=== PATIENT | male | born 1945 | race African-American/Black ===

== ENCOUNTER 2017-02-15 18:51 | Inpatient (IN) | payer MEDICARE ==
[2017-02-15 22:12] LABS: Hematocrit 29.2 % (35.5-45.6); Hemoglobin 9.2 gm/dl (11.8-15.2); Mean Corpuscular HGB Conc 32 % (32-34); Platelet Count 218 K/mm3 (140-440); Red Blood Count 4.43 M/mm3 (3.65-5.03); Red Cell Distribution Width 18.2 % (13.2-15.2)
[2017-02-15 22:23] LABS: Calcium 9.6 mg/dL (8.4-10.2); Chloride 84.6 mmol/L (98-107); Potassium 3.9 mmol/L (3.6-5.0)
[2017-02-15 22:52] LABS: Mean Corpuscular Hemoglobin 21 pg (28-32); Mean Corpuscular Volume 66 fl (84-94)
--- NOTE | 2017-02-16 07:33 | Emergency Department Report ---
HPI - General Chief Complaint: Urogenital-Male Time Seen by Provider: 02/16/17 07:10 - [facility] HPI: Room 10 The patient is a 71-year-old male presenting with a chief complaint inability to urinate cough and facial erythema. The patient states his symptoms began 3 days ago which was last time he was able to urinate. Patient states he feels there are 2 urinate but cannot produce urine. Patient states she has lower abdominal pain because of this. The patient believes he passed a stone through his penis. The patient states for the past 3 days he has had a cough is nonproductive. Patient states 3 days ago he noticed worsening erythema of his face Location: [See above] Duration: 3 days Quality: Pain Severity: Moderate Modifying factors: [see above] Context: [see above] Mode of transportation: Unknown ED Past Medical Hx - Past Medical History Previous Medical History?: Yes Hx Hypertension: Yes Hx CVA: Yes (2-3 years ago states some right side weakness) Hx Renal Disease: Yes (M.W,F Hemodialysis) Hx Arthritis: Yes (using cane for hip) Additional medical history: Hemodialysis Access Left Arm, GI Bleed - Surgical History Additional Surgical History: Left upper extremity dialysis access - Family History Family history: no significant - Social History Smoking Status: Never Smoker Substance Use Type: None ED Review of Systems ROS: Stated complaint: UNABLE TO URINATE Other details as noted in HPI Constitutional: denies: fever ENT: other (facial erythema) Respiratory: cough Gastrointestinal: abdominal pain Genitourinary: other (urinary retention) Skin: rash Physical Exam - Physical Exam Vital Signs: Vital Signs 02/15/17 02/16/17 02/16/17 21:22 04:27 05:54 Temperature 97.9 F 98.5 F Pulse Rate 82 79 Respiratory 20 18 18 Rate Blood Pressure 163/69 199/98 O2 Sat by Pulse 100 99 96 Oximetry Physical Exam: GENERAL: The patient is well-developed well-nourished male lying on stretcher not appearing to be in acute distress. [] HEENT: Normocephalic. Atraumatic. Extraocular motions are intact. The patient has erythema/cellulitis encompassing the right half of his face from the right side of the nose to the infraorbital maxillary region NECK: Supple. Trachea midline CHEST/LUNGS: Clear to auscultation. There is no respiratory distress noted. HEART/CARDIOVASCULAR: Regular. There is no tachycardia. There is no gallop rub or murmur. ABDOMEN: Abdomen is soft, there is no suprapubic fullness. Patient has normal bowel sounds. There is no abdominal distention. SKIN:The patient has erythema/cellulitis encompassing the right half of his face from the right side of the nose to the infraorbital maxillary region. There is no diaphoresis. NEURO: The patient is awake, alert, and oriented. The patient is cooperative. The patient has normal speech MUSCULOSKELETAL: There is no evidence of acute injury. ED Course Vital Signs 02/15/17 02/16/17 02/16/17 21:22 04:27 05:54 Temperature 97.9 F 98.5 F Pulse Rate 82 79 Respiratory 20 18 18 Rate Blood Pressure 163/69 199/98 O2 Sat by Pulse 100 99 96 Oximetry ED Medical Decision Making - Lab Data Result diagrams: 02/16/17 07:30 02/16/17 07:30 - Radiology Data Radiology results: report reviewed (CT abdomen and pelvis), image reviewed (CT abdomen and pelvis) CT scan of abdomen and pelvis without IV contrast: History: Urinary retention. Findings: Normal lung bases. Minimal bilateral pleural thickening. No pericardial effusion. Liver and upper limit of normal in size. No intrahepatic or extra hepatic dilatation. Distended gallbladder. No calculi the gallbladder. Normal pancreas and spleen. Normal adrenals. The right kidney measures 6.1 cm in vertical axis and left kidney measures 5.9 cm. No mass. No hydronephrosis. Thick walled urinary bladder.. Normal size prostate. Moderate amount of ascitic fluid. Gaseous colon with moderate volume stool in colon. No colonic distention. No small bowel distention. Impression: Bilateral small kidneys with thick walled urinary bladder. Normal prostate. Moderate amount of ascitic fluid. Additional findings as detailed above.. Transcribed By: PTP Dictated By: KATHRYN PAREDES MD Electronically Authenticated By: KATHRYN PAREDES MD Signed Date/Time: 02/16/17 1016 DD/ 1013 TD/TT: 02/16/17 1016 - Differential Diagnosis urinary retention, renal failure, facial cellulitis, pneumonia, bronchitis Critical care attestation.: If time is entered above; I have spent that time in minutes in the direct care of this critically ill patient, excluding procedure time. ED Disposition Clinical Impression: Facial cellulitis, Oliguria, End stage renal disease Disposition: OP ADMIT IP TO THIS HOSP Is pt being admited?: Yes Does the pt Need Aspirin: No Condition: Fair Referrals: PRIMARY CARE, [Primary Care Provider] - 3-5 Days Time of Disposition: 11:15 (hospitalist paged)
[2017-02-16 07:44] LABS: Hemoglobin 8.4 gm/dl (11.8-15.2); Mean Corpuscular HGB Conc 32 % (32-34); Platelet Count 184 K/mm3 (140-440); Red Blood Count 4.01 M/mm3 (3.65-5.03); Red Cell Distribution Width 18.2 % (13.2-15.2); White Blood Count 6.6 K/mm3 (4.5-11.0)
[2017-02-16 07:46] LABS: Mean Corpuscular Hemoglobin 21 pg (28-32); Mean Corpuscular Volume 65 fl (84-94)
[2017-02-16 08:04] LABS: Chloride 86.7 mmol/L (98-107); Potassium 4.1 mmol/L (3.6-5.0)
[2017-02-16 08:24] LABS: Calcium 9.2 mg/dL (8.4-10.2)
--- NOTE | 2017-02-16 08:25 | XRay Report ---
FINAL REPORT EXAM: XR CHEST ROUTINE 2V HISTORY: cough TECHNIQUE: PA and lateral chest radiographs PRIORS: None. FINDINGS: No mediastinal shift. Mild cardiomegaly. Mild hyperaeration of the lungs. No pneumothorax, effusion, or focal pulmonary opacity. No acute skeletal finding. IMPRESSION: No acute pulmonary finding. Mild cardiomegaly and mild sequela of COPD are suggested.
[2017-02-16 08:31] LABS: Anisocytosis 2+; Blastocytes % (Manual) 0 %; Microcytosis 1+; Poikilocytosis 2+
[2017-02-16 08:32] LABS: Diff Status Complete; Elliptocytes 1+; Hypochromasia 2+; Schistocytes Few; Target Cells Few; Tear Drop Cells Few
--- NOTE | 2017-02-16 10:22 | Cat Scan Report ---
CT scan of abdomen and pelvis without IV contrast: History: Urinary retention. Findings: Normal lung bases. Minimal bilateral pleural thickening. No pericardial effusion. Liver and upper limit of normal in size. No intrahepatic or extra hepatic dilatation. Distended gallbladder. No calculi the gallbladder. Normal pancreas and spleen. Normal adrenals. The right kidney measures 6.1 cm in vertical axis and left kidney measures 5.9 cm. No mass. No hydronephrosis. Thick walled urinary bladder.. Normal size prostate. Moderate amount of ascitic fluid. Gaseous colon with moderate volume stool in colon. No colonic distention. No small bowel distention. Impression: Bilateral small kidneys with thick walled urinary bladder. Normal prostate. Moderate amount of ascitic fluid. Additional findings as detailed above..
[2017-02-16] MEDS ORDERED: CLEOCIN 900 MG/50 mL 900 MG/50 ML BAG IV ONE (11:08)
[2017-02-16] MEDS ORDERED: ZOFRAN IV ONE (11:29)
[2017-02-16] MEDS ORDERED: MORPHINE IV ONE (11:29)
[2017-02-16] MEDS ORDERED: ZOFRAN IV PRN (14:23)
[2017-02-16] MEDS ORDERED: MORPHINE IV PRN (14:23)
[2017-02-16] MEDS ORDERED: TYLENOL PO PRN (14:23)
[2017-02-16] MEDS ORDERED: DULCOLAX PR PRN (14:23)
[2017-02-16] MEDS ORDERED: PERCOCET 5/325 PO PRN (14:23)
--- NOTE | 2017-02-16 14:33 | History and Physical Report ---
History of Present Illness Chief complaint: i can't pee, and my face is red and swollen History of present illness: 71 year old man with past medical history of end-stage renal disease on hemodialysis. Who presents complaining of poor urine outputs and facial redness and swelling. Patience was really preoccupied with the fact that his urine output has become less. He's also complaining that they tried to put a catheter in the emergency room and were unable to place one. He's worried that if he doesn't make urine he will keep swelling up. He admits some mild abdominal swelling. He's also complaining of redness swelling and pain of his face which is around his nose. He denies facial trauma scratching his face while popping a pimple. He's also had a dry cough for about 3 days. Patient denies dysuria passing any stone in his urine. Even though he was concerned that he might have a stone blocking his urine flow. Past History Past Medical History: other (htn, esrd) Past Surgical History: Other (av graft L forearm) Social history: no significant social history Family history: hypertension Medications and Allergies Allergies Allergy/AdvReac Type Severity Reaction Status Date / Time No Known Allergies Allergy Unverified 09/12/15 11:54 Home Medications Medication Instructions Recorded Confirmed Last Taken Type Furosemide [Lasix] 80 mg PO ONCE 02/16/17 02/16/17 Unknown History Lanthanum Carbonate [Fosrenol] 1,000 mg PO ONCE 02/16/17 02/16/17 Unknown History NIFEdipine [Nifedipine ER] 60 mg PO ONCE 02/16/17 02/16/17 Unknown History Active Meds: Active Medications Acetaminophen (Tylenol) 650 mg PO Q4H PRN PRN Reason: Pain MILD(1-3)/Fever >100.5/EVANS Bisacodyl (Dulcolax) 10 mg MI QDAY PRN PRN Reason: Constipation unrelieved by MOM Heparin Sodium (Porcine) (Heparin) 5,000 unit SUB-Q Q8HR KHAI Hydralazine HCl (Apresoline) 10 mg IV Q4HR PRN PRN Reason: BP >160/100 Clindamycin HCl (Cleocin 300 Mg/50 Ml) 300 mg in 50 mls @ 100 mls/hr IV Q8H KHAI Morphine Sulfate (Morphine) 4 mg IV Q4H PRN PRN Reason: Pain , Severe (7-10) Ondansetron HCl (Zofran) 4 mg IV Q8H PRN PRN Reason: N/V unrelieved by Reglan Oxycodone/Acetaminophen (Percocet 5/325) 1 tab PO Q6H PRN PRN Reason: Pain, Moderate (4-6) Review of Systems All systems: negative Constitutional: weakness Respiratory: cough Genitourinary Male: other (poor urine output) Exam - Constitutional Vitals: Temp Pulse Resp BP Pulse Ox 97.8 F 83 18 209/104 97 02/16/17 11:57 02/16/17 11:57 02/16/17 11:57 02/16/17 11:57 02/16/17 11:57 General appearance: Present: no acute distress, well-nourished - EENT Eyes: Present: PERRL ENT: hearing intact, clear oral mucosa - Neck Neck: Present: supple, normal ROM - Respiratory Respiratory effort: normal Respiratory: bilateral: CTA - Cardiovascular Heart Sounds: Present: S1 & S2. Absent: rub, click - Extremities Extremities: pulses symmetrical, No edema Peripheral Pulses: within normal limits - Abdominal General gastrointestinal: Present: soft, non-tender, non-distended, normal bowel sounds Male genitourinary: Present: normal - Integumentary Integumentary: Present: clear (erythema, edema and tenderness of nose), warm - Musculoskeletal Musculoskeletal: gait normal, strength equal bilaterally - Psychiatric Psychiatric: appropriate mood/affect, intact judgment & insight - Neurologic Neurologic: CNII-XII intact, moves all extremities Results - Labs CBC & Chem 7: 02/16/17 07:30 02/17/17 06:00 Labs: Laboratory Last Values WBC 6.6 K/mm3 (4.5-11.0) 02/16/17 07:30 RBC 4.01 M/mm3 (3.65-5.03) 02/16/17 07:30 Hgb 8.4 gm/dl (11.8-15.2) L 02/16/17 07:30 Hct 26.0 % (35.5-45.6) L 02/16/17 07:30 MCV 65 fl (84-94) L 02/16/17 07:30 MCH 21 pg (28-32) L 02/16/17 07:30 MCHC 32 % (32-34) 02/16/17 07:30 RDW 18.2 % (13.2-15.2) H 02/16/17 07:30 Plt Count 184 K/mm3 (140-440) 02/16/17 07:30 Add Manual Diff Complete 02/16/17 07:30 Total Counted 100 02/16/17 07:30 Seg Neuts % (Manual) 77.0 % (40.0-70.0) H 02/16/17 07:30 Band Neutrophils % 1.0 % 02/16/17 07:30 Lymphocytes % (Manual) 14.0 % (13.4-35.0) 02/16/17 07:30 Reactive Lymphs % (Man) 0 % 02/16/17 07:30 Monocytes % (Manual) 5.0 % (0.0-7.3) 02/16/17 07:30 Eosinophils % (Manual) 2.0 % (0.0-4.3) 02/16/17 07:30 Basophils % (Manual) 1.0 % (0.0-1.8) 02/16/17 07:30 Metamyelocytes % 0 % 02/16/17 07:30 Myelocytes % 0 % 02/16/17 07:30 Promyelocytes % 0 % 02/16/17 07:30 Blast Cells % 0 % 02/16/17 07:30 Nucleated RBC % Not Reportable 02/16/17 07:30 Seg Neutrophils # Man 5.1 K/mm3 (1.8-7.7) 02/16/17 07:30 Band Neutrophils # 0.1 K/mm3 02/16/17 07:30 Lymphocytes # (Manual) 0.9 K/mm3 (1.2-5.4) L 02/16/17 07:30 Abs React Lymphs (Man) 0.0 K/mm3 02/16/17 07:30 Monocytes # (Manual) 0.3 K/mm3 (0.0-0.8) 02/16/17 07:30 Eosinophils # (Manual) 0.1 K/mm3 (0.0-0.4) 02/16/17 07:30 Basophils # (Manual) 0.1 K/mm3 (0.0-0.1) 02/16/17 07:30 Metamyelocytes # 0.0 K/mm3 02/16/17 07:30 Myelocytes # 0.0 K/mm3 02/16/17 07:30 Promyelocytes # 0.0 K/mm3 02/16/17 07:30 Blast Cells # 0.0 K/mm3 02/16/17 07:30 WBC Morphology Not Reportable 02/16/17 07:30 Hypersegmented Neuts Not Reportable 02/16/17 07:30 Hyposegmented Neuts Not Reportable 02/16/17 07:30 Hypogranular Neuts Not Reportable 02/16/17 07:30 Smudge Cells Not Reportable 02/16/17 07:30 Toxic Granulation Not Reportable 02/16/17 07:30 Toxic Vacuolation Not Reportable 02/16/17 07:30 Dohle Bodies Not Reportable 02/16/17 07:30 Pelger-Huet Anomaly Not Reportable 02/16/17 07:30 Amarjit Rods Not Reportable 02/16/17 07:30 Platelet Estimate Appears normal 02/16/17 07:30 Clumped Platelets Not Reportable 02/16/17 07:30 Plt Clumps, EDTA Not Reportable 02/16/17 07:30 Large Platelets Not Reportable 02/16/17 07:30 Giant Platelets Not Reportable 02/16/17 07:30 Platelet Satelliting Not Reportable 02/16/17 07:30 Plt Morphology Comment Not Reportable 02/16/17 07:30 RBC Morphology Not Reportable 02/16/17 07:30 Dimorphic RBCs Not Reportable 02/16/17 07:30 Polychromasia Not Reportable 02/16/17 07:30 Hypochromasia 2+ 02/16/17 07:30 Poikilocytosis 2+ 02/16/17 07:30 Anisocytosis 2+ 02/16/17 07:30 Microcytosis 1+ 02/16/17 07:30 Macrocytosis Not Reportable 02/16/17 07:30 Spherocytes Not Reportable 02/16/17 07:30 Pappenheimer Bodies Not Reportable 02/16/17 07:30 Sickle Cells Not Reportable 02/16/17 07:30 Target Cells Few 02/16/17 07:30 Tear Drop Cells Few 02/16/17 07:30 Ovalocytes Not Reportable 02/16/17 07:30 Helmet Cells Not Reportable 02/16/17 07:30 Varela-Maben Bodies Not Reportable 02/16/17 07:30 [place] Rings Not Reportable 02/16/17 07:30 [place] Cells Not Reportable 02/16/17 07:30 Bite Cells Not Reportable 02/16/17 07:30 Crenated Cell Not Reportable 02/16/17 07:30 Elliptocytes 1+ 02/16/17 07:30 Acanthocytes (Spur) Not Reportable 02/16/17 07:30 Rouleaux Not Reportable 02/16/17 07:30 Hemoglobin C Crystals Not Reportable 02/16/17 07:30 Schistocytes Few 02/16/17 07:30 Malaria parasites Not Reportable 02/16/17 07:30 Genaro Bodies Not Reportable 02/16/17 07:30 Hem Pathologist Commnt No 02/16/17 07:30 Sodium 135 mmol/L (137-145) L 02/16/17 07:30 Potassium 4.1 mmol/L (3.6-5.0) 02/16/17 07:30 Chloride 86.7 mmol/L (98-107) L 02/16/17 07:30 Carbon Dioxide 25 mmol/L (22-30) 02/16/17 07:30 Anion Gap 27 mmol/L 02/16/17 07:30 BUN 44 mg/dL (9-20) H 02/16/17 07:30 Creatinine 7.9 mg/dL (0.8-1.5) H 02/16/17 07:30 Estimated GFR 7 ml/min 02/16/17 07:30 BUN/Creatinine Ratio 6 % 02/16/17 07:30 Glucose 95 mg/dL (75-100) 02/16/17 07:30 Calcium 9.2 mg/dL (8.4-10.2) 02/16/17 07:30 - Imaging and Cardiology CT scan - abdomen: image reviewed (bilateral small kidnesy, no urinary obstruction) CT Scan - head: image reviewed (preseptal cellulitis, no abcess) Assessment and Plan Assessment and plan: 71M with facial cellulitis/sepsis, esrd Facial Cellulitis/sepsis on abx, ID consult ESRD HD per renal HTN urgency add IV hydralazine and optimize meds Cough likely an URTI, CXR neg for PNA supportive care as needed
[2017-02-16] MEDS ORDERED: NACL ONE (14:43)
[2017-02-16] MEDS ORDERED: CLEOCIN 300 MG/50 mL 300 MG/50 ML BAG IV SCH (15:00)
--- NOTE | 2017-02-16 15:31 | Cat Scan Report ---
FINAL REPORT PROCEDURE: CT FACIAL BONES W CON TECHNIQUE: Consent was obtained. IV contrast was administered and axial sections and coronal and sagittal reformatted images were viewed through the facial bones. HISTORY: facial cellulitis/suspect abscess COMPARISON: None FINDINGS: There is right periorbital and right facial soft tissue swelling. There is no loculated fluid collection to suggest soft tissue abscess. Multiple teeth are missing and the maxilla is largely edentulous. There is a lucency with bony expansion of the right paramedian maxilla beneath tooth at this level. This measures 1.4 x 0.9 centimeters. Subtle bony dehiscence anterior inferiorly is not excluded for example seen on series 5, image 41. Lymph nodes are present within the bilateral neck as well as submental without pathologic enlargement or necrosis. Chronic right ethmoidal and right maxillary sinusitis is seen. Calcific atherosclerosis at the carotid bifurcations is noted. Mild degenerative changes of the spine as well as Schmorl's node of the superior endplate of the C6 vertebral body is present. IMPRESSION: Largely edentulous patient with 1.4 x 0.9 centimeter lucency of the right paramedian maxilla beneath a tooth possibly a dentigerous cyst. Bony dehiscence is seen anterior inferiorly with right periorbital and right facial cellulitis. No evident soft tissue abscess. Chronic right ethmoidal and right maxillary sinusitis.
[2017-02-16] MEDS ORDERED: NACL 0.9% 100 ML IV PRN (18:58)
[2017-02-16] MEDS: CLEOCIN 300 MG/50 mL 300 MG/50 ML BAG IV SCH (21:08)
[2017-02-16] MEDS: HEPARIN SUB-Q SCH (22:03)
[2017-02-17] MEDS ORDERED: LANTHANUM CARBONATE 1000 MG PO SCH (02:15)
[2017-02-17] MEDS: APRESOLINE IV PRN (03:05)
[2017-02-17] MEDS: CLEOCIN 300 MG/50 mL 300 MG/50 ML BAG IV SCH ×3 (03:56→22:53)
[2017-02-17 06:26] LABS: Calcium 8.9 mg/dL (8.4-10.2); Chloride 85.7 mmol/L (98-107); Potassium 4.5 mmol/L (3.6-5.0)
[2017-02-17] MEDS: HEPARIN SUB-Q SCH ×3 (06:32→22:54)
--- NOTE | 2017-02-17 07:45 | Progress Note ---
<JIMBO WASHINGTON - Last Filed: 02/17/17 13:27> Assessment and Plan Assessment and plan: Patient is a 71 year old man with past medical history of end-stage renal disease on hemodialysis. Who presents complaining of poor urine outputs and facial redness and swelling. Patience was really preoccupied with the fact that his urine output has become less. Facial Cellulitis/sepsis Face Follow Blood cultures Continue on IV Clindamycin Managed by ID Supportive care Hypertension Optimize home antihypertensive meds IV hydralazine for SBP>160 Closely monitor blood pressure End-stage renal disease on dialysis Patient will have urgent dialysis today Nephrology consulted Diabetes mellitus Accu-Chek before meals and at bedtime Sliding scale insulin/NovoLog ADA carbohydrate consistent diet Chronic anemia H&H stable for patient at this point; no blood transfusions needed Closely monitor H&H Cough likely an URTI, CXR neg for PNA supportive care as needed Hyponatremia Most likely due to ESRD, patient has HD today that will correct it Closely monitor electrolytes DVT prophylaxis Heparin History Interval history: Patient denies having any pain at present time. Labs and nursing notes reviewed. Hospitalist Physical - Constitutional Vitals: Temp Pulse Resp BP Pulse Ox 97.8 F 68 18 160/73 96 02/16/17 19:26 02/17/17 07:33 02/17/17 07:33 02/17/17 07:33 02/17/17 07:33 General appearance: Present: no acute distress, well-nourished - EENT Eyes: Present: PERRL ENT: hearing intact - Neck Neck: Present: supple - Respiratory Respiratory effort: normal Respiratory: bilateral: CTA - Cardiovascular Rhythm: regular Heart Sounds: Present: S1 & S2 - Abdominal General gastrointestinal: soft, non-tender - Integumentary Integumentary: Present: clear, warm, dry - Psychiatric Psychiatric: appropriate mood/affect - Neurologic Neurologic: moves all extremities - Allied Health Allied health notes reviewed: nursing Results - Labs CBC & Chem 7: 02/16/17 07:30 02/17/17 06:00 Labs: Laboratory Last Values WBC 6.6 K/mm3 (4.5-11.0) 02/16/17 07:30 RBC 4.01 M/mm3 (3.65-5.03) 02/16/17 07:30 Hgb 8.4 gm/dl (11.8-15.2) L 11/26/17 07:30 Hct 26.0 % (35.5-45.6) L 02/16/17 07:30 MCV 65 fl (84-94) L 02/16/17 07:30 MCH 21 pg (28-32) L 02/16/17 07:30 MCHC 32 % (32-34) 02/16/17 07:30 RDW 18.2 % (13.2-15.2) H 02/16/17 07:30 Plt Count 184 K/mm3 (140-440) 02/16/17 07:30 Add Manual Diff Complete 02/16/17 07:30 Total Counted 100 02/16/17 07:30 Seg Neuts % (Manual) 77.0 % (40.0-70.0) H 02/16/17 07:30 Band Neutrophils % 1.0 % 02/16/17 07:30 Lymphocytes % (Manual) 14.0 % (13.4-35.0) 02/16/17 07:30 Reactive Lymphs % (Man) 0 % 02/16/17 07:30 Monocytes % (Manual) 5.0 % (0.0-7.3) 02/16/17 07:30 Eosinophils % (Manual) 2.0 % (0.0-4.3) 02/16/17 07:30 Basophils % (Manual) 1.0 % (0.0-1.8) 02/16/17 07:30 Metamyelocytes % 0 % 02/16/17 07:30 Myelocytes % 0 % 02/16/17 07:30 Promyelocytes % 0 % 02/16/17 07:30 Blast Cells % 0 % 02/16/17 07:30 Nucleated RBC % Not Reportable 02/16/17 07:30 Seg Neutrophils # Man 5.1 K/mm3 (1.8-7.7) 02/16/17 07:30 Band Neutrophils # 0.1 K/mm3 02/16/17 07:30 Lymphocytes # (Manual) 0.9 K/mm3 (1.2-5.4) L 02/16/17 07:30 Abs React Lymphs (Man) 0.0 K/mm3 02/16/17 07:30 Monocytes # (Manual) 0.3 K/mm3 (0.0-0.8) 02/16/17 07:30 Eosinophils # (Manual) 0.1 K/mm3 (0.0-0.4) 02/16/17 07:30 Basophils # (Manual) 0.1 K/mm3 (0.0-0.1) 02/16/17 07:30 Metamyelocytes # 0.0 K/mm3 02/16/17 07:30 Myelocytes # 0.0 K/mm3 02/16/17 07:30 Promyelocytes # 0.0 K/mm3 02/16/17 07:30 Blast Cells # 0.0 K/mm3 02/16/17 07:30 WBC Morphology Not Reportable 02/16/17 07:30 Hypersegmented Neuts Not Reportable 02/16/17 07:30 Hyposegmented Neuts Not Reportable 02/16/17 07:30 Hypogranular Neuts Not Reportable 02/16/17 07:30 Smudge Cells Not Reportable 02/16/17 07:30 Toxic Granulation Not Reportable 02/16/17 07:30 Toxic Vacuolation Not Reportable 02/16/17 07:30 Dohle Bodies Not Reportable 02/16/17 07:30 Pelger-Huet Anomaly Not Reportable 02/16/17 07:30 Amarjit Rods Not Reportable 02/16/17 07:30 Platelet Estimate Appears normal 02/16/17 07:30 Clumped Platelets Not Reportable 02/16/17 07:30 Plt Clumps, EDTA Not Reportable 02/16/17 07:30 Large Platelets Not Reportable 02/16/17 07:30 Giant Platelets Not Reportable 02/16/17 07:30 Platelet Satelliting Not Reportable 02/16/17 07:30 Plt Morphology Comment Not Reportable 02/16/17 07:30 RBC Morphology Not Reportable 02/16/17 07:30 Dimorphic RBCs Not Reportable 02/16/17 07:30 Polychromasia Not Reportable 02/16/17 07:30 Hypochromasia 2+ 02/16/17 07:30 Poikilocytosis 2+ 02/16/17 07:30 Anisocytosis 2+ 02/16/17 07:30 Microcytosis 1+ 02/16/17 07:30 Macrocytosis Not Reportable 02/16/17 07:30 Spherocytes Not Reportable 02/16/17 07:30 Pappenheimer Bodies Not Reportable 02/16/17 07:30 Sickle Cells Not Reportable 02/16/17 07:30 Target Cells Few 02/16/17 07:30 Tear Drop Cells Few 02/16/17 07:30 Ovalocytes Not Reportable 02/16/17 07:30 Helmet Cells Not Reportable 02/16/17 07:30 [place] Bodies Not Reportable 02/16/17 07:30 [place] Rings Not Reportable 02/16/17 07:30 [place] Cells Not Reportable 02/16/17 07:30 Bite Cells Not Reportable 02/16/17 07:30 Crenated Cell Not Reportable 02/16/17 07:30 Elliptocytes 1+ 02/16/17 07:30 Acanthocytes (Spur) Not Reportable 02/16/17 07:30 Rouleaux Not Reportable 02/16/17 07:30 Hemoglobin C Crystals Not Reportable 02/16/17 07:30 Schistocytes Few 02/16/17 07:30 Malaria parasites Not Reportable 02/16/17 07:30 [place] Bodies Not Reportable 02/16/17 07:30 Hem Pathologist Commnt No 02/16/17 07:30 Sodium 133 mmol/L (137-145) L 02/17/17 06:00 Potassium 4.5 mmol/L (3.6-5.0) 02/17/17 06:00 Chloride 85.7 mmol/L (98-107) L 02/17/17 06:00 Carbon Dioxide 26 mmol/L (22-30) 02/17/17 06:00 Anion Gap 26 mmol/L 02/17/17 06:00 BUN 56 mg/dL (9-20) H 02/17/17 06:00 Creatinine 9.8 mg/dL (0.8-1.5) H 02/17/17 06:00 Estimated GFR 5 ml/min 02/17/17 06:00 BUN/Creatinine Ratio 6 % 02/17/17 06:00 Glucose 99 mg/dL (75-100) 02/17/17 06:00 Calcium 8.9 mg/dL (8.4-10.2) 02/17/17 06:00 <CLARK BAIRD O - Last Filed: 02/19/17 01:02> Assessment and Plan Assessment and plan: I saw and evaluated the patient. I agree with the findings and the plan of care as documented in the Nurse Practitioner's~note, with the following corrections and additions. Patient presents with cellulitis of face. Continue Antibiotics. Hospitalist Physical - Constitutional Vitals: Temp Pulse Resp BP Pulse Ox 98.2 F 77 18 181/78 97 02/18/17 20:05 02/18/17 20:05 02/18/17 20:05 02/18/17 20:05 02/18/17 20:05 Results - Labs CBC & Chem 7: 02/18/17 03:48 02/18/17 03:48 Labs: Laboratory Last Values WBC 7.0 K/mm3 (4.5-11.0) 02/18/17 03:48 RBC 3.81 M/mm3 (3.65-5.03) 02/18/17 03:48 Hgb 8.2 gm/dl (11.8-15.2) L 02/18/17 03:48 Hct 24.9 % (35.5-45.6) L 02/18/17 03:48 MCV 65 fl (84-94) L 02/18/17 03:48 MCH 22 pg (28-32) L 02/18/17 03:48 MCHC 33 % (32-34) 02/18/17 03:48 RDW 18.2 % (13.2-15.2) H 02/18/17 03:48 Plt Count 181 K/mm3 (140-440) 02/18/17 03:48 Lymph % (Auto) 23.1 % (13.4-35.0) 02/18/17 03:48 [place] % (Auto) 13.2 % (0.0-7.3) H 02/18/17 03:48 Eos % (Auto) 4.7 % (0.0-4.3) H 02/18/17 03:48 Baso % (Auto) 1.5 % (0.0-1.8) 02/18/17 03:48 Lymph # 1.6 K/mm3 (1.2-5.4) 02/18/17 03:48 [place] # 0.9 K/mm3 (0.0-0.8) H 02/18/17 03:48 Eos # 0.3 K/mm3 (0.0-0.4) 02/18/17 03:48 Baso # 0.1 K/mm3 (0.0-0.1) 02/18/17 03:48 Add Manual Diff Complete 02/16/17 07:30 Total Counted 100 02/16/17 07:30 Seg Neutrophils % 57.5 % (40.0-70.0) 02/18/17 03:48 Seg Neuts % (Manual) 77.0 % (40.0-70.0) H 02/16/17 07:30 Band Neutrophils % 1.0 % 02/16/17 07:30 Lymphocytes % (Manual) 14.0 % (13.4-35.0) 02/16/17 07:30 Reactive Lymphs % (Man) 0 % 02/16/17 07:30 Monocytes % (Manual) 5.0 % (0.0-7.3) 02/16/17 07:30 Eosinophils % (Manual) 2.0 % (0.0-4.3) 02/16/17 07:30 Basophils % (Manual) 1.0 % (0.0-1.8) 02/16/17 07:30 Metamyelocytes % 0 % 02/16/17 07:30 Myelocytes % 0 % 02/16/17 07:30 Promyelocytes % 0 % 02/16/17 07:30 Blast Cells % 0 % 02/16/17 07:30 Nucleated RBC % Not Reportable 02/16/17 07:30 Seg Neutrophils # 4.0 K/mm3 (1.8-7.7) 02/18/17 03:48 Seg Neutrophils # Man 5.1 K/mm3 (1.8-7.7) 02/16/17 07:30 Band Neutrophils # 0.1 K/mm3 02/16/17 07:30 Lymphocytes # (Manual) 0.9 K/mm3 (1.2-5.4) L 02/16/17 07:30 Abs React Lymphs (Man) 0.0 K/mm3 02/16/17 07:30 Monocytes # (Manual) 0.3 K/mm3 (0.0-0.8) 02/16/17 07:30 Eosinophils # (Manual) 0.1 K/mm3 (0.0-0.4) 02/16/17 07:30 Basophils # (Manual) 0.1 K/mm3 (0.0-0.1) 02/16/17 07:30 Metamyelocytes # 0.0 K/mm3 02/16/17 07:30 Myelocytes # 0.0 K/mm3 02/16/17 07:30 Promyelocytes # 0.0 K/mm3 02/16/17 07:30 Blast Cells # 0.0 K/mm3 02/16/17 07:30 WBC Morphology Not Reportable 02/16/17 07:30 Hypersegmented Neuts Not Reportable 02/16/17 07:30 Hyposegmented Neuts Not Reportable 02/16/17 07:30 Hypogranular Neuts Not Reportable 02/16/17 07:30 Smudge Cells Not Reportable 02/16/17 07:30 Toxic Granulation Not Reportable 02/16/17 07:30 Toxic Vacuolation Not Reportable 02/16/17 07:30 Dohle Bodies Not Reportable 02/16/17 07:30 Pelger-[place]uet Anomaly Not Reportable 02/16/17 07:30 Amarjit Rods Not Reportable 02/16/17 07:30 Platelet Estimate Appears normal 02/16/17 07:30 Clumped Platelets Not Reportable 02/16/17 07:30 Plt Clumps, EDTA Not Reportable 02/16/17 07:30 Large Platelets Not Reportable 02/16/17 07:30 Giant Platelets Not Reportable 02/16/17 07:30 Platelet Satelliting Not Reportable 02/16/17 07:30 Plt Morphology Comment Not Reportable 02/16/17 07:30 RBC Morphology Not Reportable 02/16/17 07:30 Dimorphic RBCs Not Reportable 02/16/17 07:30 Polychromasia Not Reportable 02/16/17 07:30 Hypochromasia 2+ 02/16/17 07:30 Poikilocytosis 2+ 02/16/17 07:30 Anisocytosis 2+ 02/16/17 07:30 Microcytosis 1+ 02/16/17 07:30 Macrocytosis Not Reportable 02/16/17 07:30 Spherocytes Not Reportable 02/16/17 07:30 Pappenheimer Bodies Not Reportable 02/16/17 07:30 Sickle Cells Not Reportable 02/16/17 07:30 Target Cells Few 02/16/17 07:30 Tear Drop Cells Few 02/16/17 07:30 Ovalocytes Not Reportable 02/16/17 07:30 Helmet Cells Not Reportable 02/16/17 07:30 [place] Bodies Not Reportable 02/16/17 07:30 [place] Rings Not Reportable 02/16/17 07:30 [place] Cells Not Reportable 02/16/17 07:30 Bite Cells Not Reportable 02/16/17 07:30 Crenated Cell Not Reportable 02/16/17 07:30 Elliptocytes 1+ 02/16/17 07:30 Acanthocytes (Spur) Not Reportable 02/16/17 07:30 Rouleaux Not Reportable 02/16/17 07:30 Hemoglobin C Crystals Not Reportable 02/16/17 07:30 Schistocytes Few 02/16/17 07:30 Malaria parasites Not Reportable 02/16/17 07:30 [place] Bodies Not Reportable 02/16/17 07:30 Hem Pathologist Commnt No 02/16/17 07:30 Sodium 135 mmol/L (137-145) L 02/18/17 03:48 Potassium 4.0 mmol/L (3.6-5.0) 02/18/17 03:48 Chloride 91.7 mmol/L (98-107) L 02/18/17 03:48 Carbon Dioxide 26 mmol/L (22-30) 02/18/17 03:48 Anion Gap 21 mmol/L 02/18/17 03:48 BUN 30 mg/dL (9-20) H 02/18/17 03:48 Creatinine 6.3 mg/dL (0.8-1.5) H 02/18/17 03:48 Estimated GFR 9 ml/min 02/18/17 03:48 BUN/Creatinine Ratio 5 % 02/18/17 03:48 Glucose 88 mg/dL (75-100) 02/18/17 03:48 Calcium 8.7 mg/dL (8.4-10.2) 02/18/17 03:48 C-Reactive Protein 2.30 mg/dL (0.00-1.30) H 02/17/17 06:00
[2017-02-17] MEDS ORDERED: NACL 0.9 (PRIMING MACHINE ONLY DIALYSIS) MC ONE (13:13)
--- NOTE | 2017-02-17 13:36 | Consultation ---
History of Present Illness - Reason for Consult Consult date: 02/17/17 facial cellulitis Requesting physician: MARITZA CASAS - History of Present Illness 71 years old male with history of end stage renal disease on hemodialysis, admitted on 02/16/2017 due to 7 day history of right facial rash and erythema. Denies any recent injuries to the face or lesions. Erythema is associated with facial pain which is throbbing. She also is complaining of decreased urine output. Complains of abdominal distention however denies pain. Reports subjective fever for a week. Reports dry cough for the last 3 days. In the Emergency room, initial temperature was 97.9, heart rate 82, blood pressure 163/69. White count 9.2. Hg 9.2. CXR showed Mild cardiomegaly with mild COPD changes. CT of the face showed chronic right ethmoid and maxillary sinusitis. CT of the abdomen showed bilaterally small kidneys with thick walled urinary bladder. Microbiology: Blood cultures: 02/16 ngtd Current Antimicrobials: Clindamycin 02/16 Previous Antimicrobials: Past History Past Medical History: other (htn, esrd) Past Surgical History: Other (av graft L forearm) Social history: no significant social history Family history: hypertension Medications and Allergies Allergies Allergy/AdvReac Type Severity Reaction Status Date / Time No Known Allergies Allergy Unverified 09/12/15 11:54 Home Medications Medication Instructions Recorded Confirmed Last Taken Type Furosemide [Lasix] 80 mg PO ONCE 02/16/17 02/16/17 Unknown History Lanthanum Carbonate [Fosrenol] 1,000 mg PO ONCE 02/16/17 02/16/17 Unknown History NIFEdipine [Nifedipine ER] 60 mg PO ONCE 02/16/17 02/16/17 Unknown History Active Meds: Active Medications Acetaminophen (Tylenol) 650 mg PO Q4H PRN PRN Reason: Pain MILD(1-3)/Fever >100.5/EVANS Bisacodyl (Dulcolax) [address] QDAY PRN PRN Reason: Constipation unrelieved by MOM Heparin Sodium (Porcine) (Heparin) 5,000 unit SUB-Q Q8HR [facility] Last Admin: 02/17/17 06:32 Dose: 5,000 unit Hydralazine HCl (Apresoline) 10 mg IV Q4HR PRN PRN Reason: BP >160/100 Last Admin: 02/17/17 03:05 Dose: 10 mg Clindamycin HCl (Cleocin 300 Mg/50 Ml) 300 mg in 50 mls @ 100 mls/hr IV Q8H KHAI Last Admin: 02/17/17 03:56 Dose: 100 mls/hr Sodium Chloride (Nacl 0.9%) 100 mls @ 999 mls/hr IV AL PRN PRN Reason: Hypotension Lanthanum Carbonate (Fosrenol) 1,000 mg PO QDAY KHAI Morphine Sulfate (Morphine) 4 mg IV Q4H PRN PRN Reason: Pain , Severe (7-10) Nifedipine (Procardia Xl) 60 mg PO QDAY KHAI Ondansetron HCl (Zofran) 4 mg IV Q8H PRN PRN Reason: N/V unrelieved by Reglan Oxycodone/Acetaminophen (Percocet 5/325) 1 tab PO Q6H PRN PRN Reason: Pain, Moderate (4-6) Review of Systems All systems: negative (as per HPI rest neg) Physical Examination - Physical Exam Narrative exam: General appearance: Alert in NAD, conversant Eyes: anicteric sclerae, moist conjunctivae; no lid-lag; PERRLA HENT: Atraumatic; oropharynx clear with moist mucous membranes and no mucosal ulcerations/no oral thrush; normal hard and soft palate. Normal external ears. Neck: Trachea midline; supple, no thyromegaly or lymphadenopathy Lungs: CTA, with normal respiratory effort and no intercostal retractions CV: RRR, no murmurs Abdomen: Soft, non-tender; no masses or hepatosplenomegaly Extremities: No peripheral edema or extremity lymphadenopathy Skin: right facial erythema and multiple small ulcers mainly in nose, cheek. A/ V graft with positive bruit and thrill. Psych: Appropriate affect, alert and oriented to person, place and time. Neuro: alert and oriented x 3. Moving all extermities Lines: No CVL / PICC - Constitutional Vitals: Vital Signs Temp Pulse Resp BP Pulse Ox 98.4 F 66 18 176/93 96 02/17/17 10:30 02/17/17 12:00 02/17/17 10:30 02/17/17 12:00 02/17/17 07:33 Temperature -Last 24 Hours Temperature 98.4 F Temperature 97.8 F Temperature 98.3 F Results - Labs CBC & Chem 7: 02/16/17 07:30 02/17/17 06:00 Labs: Abnormal lab results 02/17/17 Range/Units 06:00 Sodium 133 L (137-145) mmol/L Chloride 85.7 L (98-107) mmol/L BUN 56 H (9-20) mg/dL Creatinine 9.8 H (0.8-1.5) mg/dL Assessment and Plan Assessment: 1) Right facial erythema: likely Herpes Zoster, less likely cellulitis. CT face negative. 2) ESRD Plan: -follow-up blood cultures, urine culture -obtain C-reactive protein (CRP) -add acyclovir IV -continue clindamycin Thank you Dr Casas for your consultation, will follow up with you. Polly Coyle MD Infectious Diseases Specialist [facility] M [phone] O [phone]
--- NOTE | 2017-02-17 13:45 | Consultation ---
History of Present Illness - Reason for Consult Consult date: 02/17/17 end stage renal disease Requesting physician: MARITZA SANCHEZ - History of Present Illness This is a 71 yo M well known to us from outpatient HD, with h/o hypertension, ESRD, anemia of ESRD, who presents with complaints of and facial redness and swelling which is worsening progressively over the last week. pt denies trauma, recent travel, sick contacts. swelling is mostly around R facial area involving eye lids. Pt also c/o difficulty urinating. pt is on [facility] HD schedule, renal consult is requested for management of ESRD/HD. Past History Past Surgical History: Other (av graft L forearm) Social history: no significant social history Family history: hypertension Medications and Allergies Allergies Allergy/AdvReac Type Severity Reaction Status Date / Time No Known Allergies Allergy Unverified 09/12/15 11:54 Home Medications Medication Instructions Recorded Confirmed Last Taken Type Furosemide [Lasix] 80 mg PO ONCE 02/16/17 02/16/17 Unknown History Lanthanum Carbonate [Fosrenol] 1,000 mg PO ONCE 02/16/17 02/16/17 Unknown History NIFEdipine [Nifedipine ER] 60 mg PO ONCE 02/16/17 02/16/17 Unknown History Active Meds: Active Medications Acetaminophen (Tylenol) 650 mg PO Q4H PRN PRN Reason: Pain MILD(1-3)/Fever >100.5/EVANS Acyclovir (Zovirax) 620 mg 10 mg/kg (620 mg) IV Q8HR KHAI PRN Reason: Protocol Bisacodyl (Dulcolax) 10 mg [place] QDAY PRN PRN Reason: Constipation unrelieved by MOM Heparin Sodium (Porcine) (Heparin) 5,000 unit SUB-Q Q8HR REPLACED BY [facility] Last Admin: 02/17/17 06:32 Dose: 5,000 unit Hydralazine HCl (Apresoline) 10 mg IV Q4HR PRN PRN Reason: BP >160/100 Last Admin: 02/17/17 03:05 Dose: 10 mg Clindamycin HCl (Cleocin 300 Mg/50 Ml) 300 mg in 50 mls @ 100 mls/hr IV Q8H REPLACED BY [facility] Last Admin: 02/17/17 03:56 Dose: 100 mls/hr Sodium Chloride (Nacl 0.9%) 100 mls @ 999 mls/hr IV AL PRN PRN Reason: Hypotension Lanthanum Carbonate (Fosrenol) 1,000 mg PO QDAY KHAI Morphine Sulfate (Morphine) 4 mg IV Q4H PRN PRN Reason: Pain , Severe (7-10) Nifedipine (Procardia Xl) 60 mg PO QDAY KHAI Ondansetron HCl (Zofran) 4 mg IV Q8H PRN PRN Reason: N/V unrelieved by Reglan Oxycodone/Acetaminophen (Percocet 5/325) 1 tab PO Q6H PRN PRN Reason: Pain, Moderate (4-6) Review of Systems All systems: negative Constitutional: weakness Ears, nose, mouth and throat: nose pain, swelling in mouth, other (Rt facial swelling, erythema, pain ) Genitourinary Male: dysuria, urinary frequency (decreased urinary frequency ) Exam - Vital Signs Vital signs: Vital Signs Temp Pulse Resp BP Pulse Ox 97.9 F 82 20 163/69 100 02/15/17 21:22 02/15/17 21:22 02/15/17 21:22 02/15/17 21:22 02/15/17 21:22 - General Appearance General appearance: well-nourished, appears stated age EENT: ATNC, PERRL, other (Rt facial vesiculo, papulo, pustular rash) Neck: Present: neck supple Respiratory: Clear to Ascultation Heart: regular, S1S2 Gastrointestinal: Present: normoactive bowel sounds Integumentary: no rash, other (no edema ) Neurologic: no focal deficit, alert and oriented x3, strength 5/5, CN 3-12 intact Psychiatric: mood/affect appropriate, cooperative Results - Lab Results 02/16/17 07:30 02/17/17 06:00 Most recent lab results Calcium 8.9 mg/dL (8.4-10.2) 02/17/17 06:00 Assessment and Plan - Patient Problems (1) End stage renal disease Current Visit: Yes Status: Acute Plan to address problem: cont HD MWF schedule (2) Herpes zoster Current Visit: Yes Status: Acute Plan to address problem: antiviral treatment w/ acyclovir as per ID (3) Facial cellulitis Current Visit: Yes Status: Acute Plan to address problem: ABXs as per ID (4) Hypertensive chronic kidney disease with stage 5 chronic kidney disease or end stage renal disease Current Visit: Yes Status: Acute Plan to address problem: will target UF 4L as tolerated for volume/BP control, if BP remains elevated will add hydralazine to nifedipine for further BP control (5) Anemia in chronic illness Current Visit: Yes Status: Acute Plan to address problem: EPO with HD
[2017-02-17] MEDS ORDERED: ZOVIRAX IV SCH (14:00)
[2017-02-17] MEDS: PROCARDIA XL PO SCH (20:30)
[2017-02-17] MEDS: FOSRENOL PO SCH (20:30)
[2017-02-17] MEDS: ZOVIRAX IV SCH (22:54)
[2017-02-17] MEDS: NACL 0.9% IV SCH (22:54)
[2017-02-18 04:58] LABS: Basophils % (Auto) 1.5 % (0.0-1.8); Eosinophils % (Auto) 4.7 % (0.0-4.3); Hematocrit 24.9 % (35.5-45.6); Hemoglobin 8.2 gm/dl (11.8-15.2); Mean Corpuscular HGB Conc 33 % (32-34); Platelet Count 181 K/mm3 (140-440); Red Blood Count 3.81 M/mm3 (3.65-5.03); Red Cell Distribution Width 18.2 % (13.2-15.2)
[2017-02-18 05:05] LABS: Mean Corpuscular Hemoglobin 22 pg (28-32); Mean Corpuscular Volume 65 fl (84-94)
[2017-02-18 05:15] LABS: Calcium 8.7 mg/dL (8.4-10.2); Chloride 91.7 mmol/L (98-107)
[2017-02-18] MEDS: CLEOCIN 300 MG/50 mL 300 MG/50 ML BAG IV SCH ×2 (05:27→11:17)
[2017-02-18] MEDS: HEPARIN SUB-Q SCH ×3 (05:28→22:41)
[2017-02-18] MEDS: ZOVIRAX IV SCH (05:28)
[2017-02-18] MEDS: NACL 0.9% IV SCH (05:28)
--- NOTE | 2017-02-18 08:05 | Progress Note ---
<JIMBO WASHINGTON - Last Filed: 02/18/17 16:22> Assessment and Plan Assessment and plan: Patient is a 71 year old man with past medical history of end-stage renal disease on hemodialysis. Who presents complaining of poor urine outputs and facial redness and swelling. Patience was really preoccupied with the fact that his urine output has become less. Right facial erythema: Most likelydue to herpes Zoster, less likely cellulitis. CT face negative. CRP= 2.3 Follow Blood cultures Stopped IV Clindamycin and continue acyclovir IV and transition to valtrex 1 g PO q12h total 7 days per ID Managed by ID Supportive care Hypertension Optimize home antihypertensive meds IV hydralazine for SBP>160 Closely monitor blood pressure End-stage renal disease on dialysis Patient will have urgent dialysis today Nephrology consulted Diabetes mellitus Accu-Chek before meals and at bedtime Sliding scale insulin/NovoLog ADA carbohydrate consistent diet Chronic anemia H&H stable for patient at this point; no blood transfusions needed Closely monitor H&H Cough likely an URTI, CXR neg for PNA supportive care as needed Hyponatremia Most likely due to ESRD, patient has HD today that will correct it Closely monitor electrolytes DVT prophylaxis Heparin History Interval history: Patient denies having pain at preset time. labs and nursing notes reviewed. Hospitalist Physical - Constitutional Vitals: Temp Pulse Resp BP Pulse Ox 98.7 F 73 18 142/64 94 02/17/17 20:19 02/17/17 20:19 02/17/17 20:19 02/17/17 20:19 02/17/17 20:19 General appearance: Present: no acute distress, well-nourished - EENT Eyes: Present: PERRL ENT: hearing intact - Neck Neck: Present: supple - Respiratory Respiratory effort: normal Respiratory: bilateral: CTA - Cardiovascular Rhythm: regular Heart Sounds: Present: S1 & S2 - Abdominal General gastrointestinal: soft, non-tender - Integumentary Integumentary: Present: clear, warm, dry - Psychiatric Psychiatric: appropriate mood/affect - Neurologic Neurologic: moves all extremities - Allied Health Allied health notes reviewed: nursing Results - Labs CBC & Chem 7: 02/18/17 03:48 02/18/17 03:48 Labs: Laboratory Last Values WBC 7.0 K/mm3 (4.5-11.0) 02/18/17 03:48 RBC 3.81 M/mm3 (3.65-5.03) 02/18/17 03:48 Hgb 8.2 gm/dl (11.8-15.2) L 02/18/17 03:48 Hct 24.9 % (35.5-45.6) L 02/18/17 03:48 MCV 65 fl (84-94) L 02/18/17 03:48 MCH 22 pg (28-32) L 02/18/17 03:48 MCHC 33 % (32-34) 02/18/17 03:48 RDW 18.2 % (13.2-15.2) H 02/18/17 03:48 Plt Count 181 K/mm3 (140-440) 02/18/17 03:48 Lymph % (Auto) 23.1 % (13.4-35.0) 02/18/17 03:48 [place] % (Auto) 13.2 % (0.0-7.3) H 02/18/17 03:48 Eos % (Auto) 4.7 % (0.0-4.3) H 02/18/17 03:48 Baso % (Auto) 1.5 % (0.0-1.8) 02/18/17 03:48 Lymph # 1.6 K/mm3 (1.2-5.4) 02/18/17 03:48 [place] # 0.9 K/mm3 (0.0-0.8) H 02/18/17 03:48 Eos # 0.3 K/mm3 (0.0-0.4) 02/18/17 03:48 Baso # 0.1 K/mm3 (0.0-0.1) 02/18/17 03:48 Add Manual Diff Complete 02/16/17 07:30 Total Counted 100 02/16/17 07:30 Seg Neutrophils % 57.5 % (40.0-70.0) 02/18/17 03:48 Seg Neuts % (Manual) 77.0 % (40.0-70.0) H 02/16/17 07:30 Band Neutrophils % 1.0 % 02/16/17 07:30 Lymphocytes % (Manual) 14.0 % (13.4-35.0) 02/16/17 07:30 Reactive Lymphs % (Man) 0 % 02/16/17 07:30 Monocytes % (Manual) 5.0 % (0.0-7.3) 02/16/17 07:30 Eosinophils % (Manual) 2.0 % (0.0-4.3) 02/16/17 07:30 Basophils % (Manual) 1.0 % (0.0-1.8) 02/16/17 07:30 Metamyelocytes % 0 % 02/16/17 07:30 Myelocytes % 0 % 02/16/17 07:30 Promyelocytes % 0 % 02/16/17 07:30 Blast Cells % 0 % 02/16/17 07:30 Nucleated RBC % Not Reportable 02/16/17 07:30 Seg Neutrophils # 4.0 K/mm3 (1.8-7.7) 02/18/17 03:48 Seg Neutrophils # Man 5.1 K/mm3 (1.8-7.7) 02/16/17 07:30 Band Neutrophils # 0.1 K/mm3 02/16/17 07:30 Lymphocytes # (Manual) 0.9 K/mm3 (1.2-5.4) L 02/16/17 07:30 Abs React Lymphs (Man) 0.0 K/mm3 02/16/17 07:30 Monocytes # (Manual) 0.3 K/mm3 (0.0-0.8) 02/16/17 07:30 Eosinophils # (Manual) 0.1 K/mm3 (0.0-0.4) 02/16/17 07:30 Basophils # (Manual) 0.1 K/mm3 (0.0-0.1) 02/16/17 07:30 Metamyelocytes # 0.0 K/mm3 02/16/17 07:30 Myelocytes # 0.0 K/mm3 02/16/17 07:30 Promyelocytes # 0.0 K/mm3 02/16/17 07:30 Blast Cells # 0.0 K/mm3 02/16/17 07:30 WBC Morphology Not Reportable 02/16/17 07:30 Hypersegmented Neuts Not Reportable 02/16/17 07:30 Hyposegmented Neuts Not Reportable 02/16/17 07:30 Hypogranular Neuts Not Reportable 02/16/17 07:30 Smudge Cells Not Reportable 02/16/17 07:30 Toxic Granulation Not Reportable 02/16/17 07:30 Toxic Vacuolation Not Reportable 02/16/17 07:30 Dohle Bodies Not Reportable 02/16/17 07:30 Pelger-Huet Anomaly Not Reportable 02/16/17 07:30 Amarjit Rods Not Reportable 02/16/17 07:30 Platelet Estimate Appears normal 02/16/17 07:30 Clumped Platelets Not Reportable 02/16/17 07:30 Plt Clumps, EDTA Not Reportable 02/16/17 07:30 Large Platelets Not Reportable 02/16/17 07:30 Giant Platelets Not Reportable 02/16/17 07:30 Platelet Satelliting Not Reportable 02/16/17 07:30 Plt Morphology Comment Not Reportable 02/16/17 07:30 RBC Morphology Not Reportable 02/16/17 07:30 Dimorphic RBCs Not Reportable 02/16/17 07:30 Polychromasia Not Reportable 02/16/17 07:30 Hypochromasia 2+ 02/16/17 07:30 Poikilocytosis 2+ 02/16/17 07:30 Anisocytosis 2+ 02/16/17 07:30 Microcytosis 1+ 02/16/17 07:30 Macrocytosis Not Reportable 02/16/17 07:30 Spherocytes Not Reportable 02/16/17 07:30 Pappenheimer Bodies Not Reportable 02/16/17 07:30 Sickle Cells Not Reportable 02/16/17 07:30 Target Cells Few 02/16/17 07:30 Tear Drop Cells Few 02/16/17 07:30 Ovalocytes Not Reportable 02/16/17 07:30 Helmet Cells Not Reportable 02/16/17 07:30 Varela-Boardman Bodies Not Reportable 02/16/17 07:30 Beaumont Rings Not Reportable 02/16/17 07:30 Abby Cells Not Reportable 02/16/17 07:30 Bite Cells Not Reportable 02/16/17 07:30 Crenated Cell Not Reportable 02/16/17 07:30 Elliptocytes 1+ 02/16/17 07:30 Acanthocytes (Spur) Not Reportable 02/16/17 07:30 Rouleaux Not Reportable 02/16/17 07:30 Hemoglobin C Crystals Not Reportable 02/16/17 07:30 Schistocytes Few 02/16/17 07:30 Malaria parasites Not Reportable 02/16/17 07:30 Genaro Bodies Not Reportable 02/16/17 07:30 Hem Pathologist Commnt No 02/16/17 07:30 Sodium 135 mmol/L (137-145) L 02/18/17 03:48 Potassium 4.0 mmol/L (3.6-5.0) 02/18/17 03:48 Chloride 91.7 mmol/L (98-107) L 02/18/17 03:48 Carbon Dioxide 26 mmol/L (22-30) 02/18/17 03:48 Anion Gap 21 mmol/L 02/18/17 03:48 BUN 30 mg/dL (9-20) H 02/18/17 03:48 Creatinine 6.3 mg/dL (0.8-1.5) H 02/18/17 03:48 Estimated GFR 9 ml/min 02/18/17 03:48 BUN/Creatinine Ratio 5 % 02/18/17 03:48 Glucose 88 mg/dL (75-100) 02/18/17 03:48 Calcium 8.7 mg/dL (8.4-10.2) 02/18/17 03:48 C-Reactive Protein 2.30 mg/dL (0.00-1.30) H 02/17/17 06:00 <CLARK BAIRD - Last Filed: 02/19/17 01:05> History Interval history: I saw and evaluated the patient. I agree with the findings and the plan of care as documented in the Nurse Practitioner's~note, with the following corrections and additions. Patient with ESRD with right facial lesions. This is Herpes zoster right side of face. He was evaluated by ID Physician. Hospitalist Physical - Constitutional Vitals: Temp Pulse Resp BP Pulse Ox 98.2 F 77 18 181/78 97 02/18/17 20:05 02/18/17 20:05 02/18/17 20:05 02/18/17 20:05 02/18/17 20:05 Results - Labs CBC & Chem 7: 02/18/17 03:48 02/18/17 03:48 Labs: Laboratory Last Values WBC 7.0 K/mm3 (4.5-11.0) 02/18/17 03:48 RBC 3.81 M/mm3 (3.65-5.03) 02/18/17 03:48 Hgb 8.2 gm/dl (11.8-15.2) L 02/18/17 03:48 Hct 24.9 % (35.5-45.6) L 02/18/17 03:48 MCV 65 fl (84-94) L 02/18/17 03:48 MCH 22 pg (28-32) L 02/18/17 03:48 MCHC 33 % (32-34) 02/18/17 03:48 RDW 18.2 % (13.2-15.2) H 02/18/17 03:48 Plt Count 181 K/mm3 (140-440) 02/18/17 03:48 Lymph % (Auto) 23.1 % (13.4-35.0) 02/18/17 03:48 [place] % (Auto) 13.2 % (0.0-7.3) H 02/18/17 03:48 Eos % (Auto) 4.7 % (0.0-4.3) H 02/18/17 03:48 Baso % (Auto) 1.5 % (0.0-1.8) 02/18/17 03:48 Lymph # 1.6 K/mm3 (1.2-5.4) 02/18/17 03:48 [place] # 0.9 K/mm3 (0.0-0.8) H 02/18/17 03:48 Eos # 0.3 K/mm3 (0.0-0.4) 02/18/17 03:48 Baso # 0.1 K/mm3 (0.0-0.1) 02/18/17 03:48 Add Manual Diff Complete 02/16/17 07:30 Total Counted 100 02/16/17 07:30 Seg Neutrophils % 57.5 % (40.0-70.0) 02/18/17 03:48 Seg Neuts % (Manual) 77.0 % (40.0-70.0) H 02/16/17 07:30 Band Neutrophils % 1.0 % 02/16/17 07:30 Lymphocytes % (Manual) 14.0 % (13.4-35.0) 02/16/17 07:30 Reactive Lymphs % (Man) 0 % 02/16/17 07:30 Monocytes % (Manual) 5.0 % (0.0-7.3) 02/16/17 07:30 Eosinophils % (Manual) 2.0 % (0.0-4.3) 02/16/17 07:30 Basophils % (Manual) 1.0 % (0.0-1.8) 02/16/17 07:30 Metamyelocytes % 0 % 02/16/17 07:30 Myelocytes % 0 % 02/16/17 07:30 Promyelocytes % 0 % 02/16/17 07:30 Blast Cells % 0 % 02/16/17 07:30 Nucleated RBC % Not Reportable 02/16/17 07:30 Seg Neutrophils # 4.0 K/mm3 (1.8-7.7) 02/18/17 03:48 Seg Neutrophils # Man 5.1 K/mm3 (1.8-7.7) 02/16/17 07:30 Band Neutrophils # 0.1 K/mm3 02/16/17 07:30 Lymphocytes # (Manual) 0.9 K/mm3 (1.2-5.4) L 02/16/17 07:30 Abs React Lymphs (Man) 0.0 K/mm3 02/16/17 07:30 Monocytes # (Manual) 0.3 K/mm3 (0.0-0.8) 02/16/17 07:30 Eosinophils # (Manual) 0.1 K/mm3 (0.0-0.4) 02/16/17 07:30 Basophils # (Manual) 0.1 K/mm3 (0.0-0.1) 02/16/17 07:30 Metamyelocytes # 0.0 K/mm3 02/16/17 07:30 Myelocytes # 0.0 K/mm3 02/16/17 07:30 Promyelocytes # 0.0 K/mm3 02/16/17 07:30 Blast Cells # 0.0 K/mm3 02/16/17 07:30 WBC Morphology Not Reportable 02/16/17 07:30 Hypersegmented Neuts Not Reportable 02/16/17 07:30 Hyposegmented Neuts Not Reportable 02/16/17 07:30 Hypogranular Neuts Not Reportable 02/16/17 07:30 Smudge Cells Not Reportable 02/16/17 07:30 Toxic Granulation Not Reportable 02/16/17 07:30 Toxic Vacuolation Not Reportable 02/16/17 07:30 Dohle Bodies Not Reportable 02/16/17 07:30 Pelger-Huet Anomaly Not Reportable 02/16/17 07:30 Amarjit Rods Not Reportable 02/16/17 07:30 Platelet Estimate Appears normal 02/16/17 07:30 Clumped Platelets Not Reportable 02/16/17 07:30 Plt Clumps, EDTA Not Reportable 02/16/17 07:30 Large Platelets Not Reportable 02/16/17 07:30 Giant Platelets Not Reportable 02/16/17 07:30 Platelet Satelliting Not Reportable 02/16/17 07:30 Plt Morphology Comment Not Reportable 02/16/17 07:30 RBC Morphology Not Reportable 02/16/17 07:30 Dimorphic RBCs Not Reportable 02/16/17 07:30 Polychromasia Not Reportable 02/16/17 07:30 Hypochromasia 2+ 02/16/17 07:30 Poikilocytosis 2+ 02/16/17 07:30 Anisocytosis 2+ 02/16/17 07:30 Microcytosis 1+ 02/16/17 07:30 Macrocytosis Not Reportable 02/16/17 07:30 Spherocytes Not Reportable 02/16/17 07:30 Pappenheimer Bodies Not Reportable 02/16/17 07:30 Sickle Cells Not Reportable 02/16/17 07:30 Target Cells Few 02/16/17 07:30 Tear Drop Cells Few 02/16/17 07:30 Ovalocytes Not Reportable 02/16/17 07:30 Helmet Cells Not Reportable 02/16/17 07:30 Varela-Boardman Bodies Not Reportable 02/16/17 07:30 Beaumont Rings Not Reportable 02/16/17 07:30 Abby Cells Not Reportable 02/16/17 07:30 Bite Cells Not Reportable 02/16/17 07:30 Crenated Cell Not Reportable 02/16/17 07:30 Elliptocytes 1+ 02/16/17 07:30 Acanthocytes (Spur) Not Reportable 02/16/17 07:30 Rouleaux Not Reportable 02/16/17 07:30 Hemoglobin C Crystals Not Reportable 02/16/17 07:30 Schistocytes Few 02/16/17 07:30 Malaria parasites Not Reportable 02/16/17 07:30 Genaro Bodies Not Reportable 02/16/17 07:30 Hem Pathologist Commnt No 02/16/17 07:30 Sodium 135 mmol/L (137-145) L 02/18/17 03:48 Potassium 4.0 mmol/L (3.6-5.0) 02/18/17 03:48 Chloride 91.7 mmol/L (98-107) L 02/18/17 03:48 Carbon Dioxide 26 mmol/L (22-30) 02/18/17 03:48 Anion Gap 21 mmol/L 02/18/17 03:48 BUN 30 mg/dL (9-20) H 02/18/17 03:48 Creatinine 6.3 mg/dL (0.8-1.5) H 02/18/17 03:48 Estimated GFR 9 ml/min 02/18/17 03:48 BUN/Creatinine Ratio 5 % 02/18/17 03:48 Glucose 88 mg/dL (75-100) 02/18/17 03:48 Calcium 8.7 mg/dL (8.4-10.2) 02/18/17 03:48 C-Reactive Protein 2.30 mg/dL (0.00-1.30) H 02/17/17 06:00
[2017-02-18] MEDS: FOSRENOL PO SCH (09:24)
[2017-02-18] MEDS: PROCARDIA XL PO SCH (09:25)
--- NOTE | 2017-02-18 10:22 | Progress Note ---
Assessment and Plan - Patient Problems (1) End stage renal disease Current Visit: Yes Status: Acute Plan to address problem: cont HD MWF schedule (2) Herpes zoster Current Visit: Yes Status: Acute Plan to address problem: antiviral treatment w/ acyclovir as per ID (3) Facial cellulitis Current Visit: Yes Status: Acute Plan to address problem: ABXs as per ID (4) Hypertensive chronic kidney disease with stage 5 chronic kidney disease or end stage renal disease Current Visit: Yes Status: Acute Plan to address problem: BP remains elevated, will add hydralazine to nifedipine for further BP control (5) Anemia in chronic illness Current Visit: Yes Status: Acute Plan to address problem: EPO with HD Subjective Date of service: 02/18/17 Principal diagnosis: herpes zoster, ESRD Interval history: pt awake, alert, in NAD, reports improving facial pain Objective - Vital Signs Vital signs: Vital Signs - 12hr 02/18/17 02/18/17 04:44 07:41 Temperature 98.4 F 98.3 F Pulse Rate 71 67 Respiratory 18 18 Rate Blood Pressure 160/74 164/68 O2 Sat by Pulse 96 98 Oximetry - General Appearance General appearance: well-developed, well-nourished, appears stated age EENT: ATNC, PERRL, mucous membranes moist, other (facial herpes zoster ) Neck: no JVD Respiratory: Present: Clear to Ascultation Cardiology: regular, S1S2 Gastrointestinal: normoactive bowel sounds Integumentary: no rash, other (no edema) Neurologic: no focal deficit, alert and oriented x3, strength 5/5, CN 3-12 intact Psychiatric: mood/affect appropriate, cooperative - Lab 02/18/17 03:48 02/18/17 03:48 Most recent lab results Calcium 8.7 mg/dL (8.4-10.2) 02/18/17 03:48
--- NOTE | 2017-02-18 12:09 | Progress Note ---
Assessment and Plan Assessment: 1) Right facial erythema: likely Herpes Zoster, less likely cellulitis. CT face negative. CRP=2.3 2) ESRD Plan: -continue acyclovir IV -stop clindamycin -upon discharge will do valtrex 1 g PO q12h total [address] Casas for your consultation, will follow up with you. Polly Coyle MD Infectious Diseases Specialist [facility] ([facility]) M [phone] O [phone] Subjective Date of service: 02/18/17 Principal diagnosis: herpes zoster, ESRD Interval history: Feels better, had some nose bleed, no fever. Microbiology: Blood cultures: 02/16 ngtd Current Antimicrobials: Clindamycin 02/16 Acyclovir Previous Antimicrobials: Objective - Exam Narrative Exam: General appearance: Alert in NAD, conversant Eyes: anicteric sclerae, moist conjunctivae; no lid-lag; PERRLA HENT: Atraumatic; oropharynx clear with moist mucous membranes and no mucosal ulcerations/no oral thrush; normal hard and soft palate. Normal external ears. Neck: Trachea midline; supple, no thyromegaly or lymphadenopathy Lungs: CTA, with normal respiratory effort and no intercostal retractions CV: RRR, no murmurs Abdomen: Soft, non-tender; no masses or hepatosplenomegaly Extremities: No peripheral edema or extremity lymphadenopathy Skin: right facial erythema and multiple small ulcers mainly in nose, cheek. A/ V graft with positive bruit and thrill. Psych: Appropriate affect, alert and oriented to person, place and time. Neuro: alert and oriented x 3. Moving all extermities Lines: No CVL / PICC - Constitutional Vitals: Vital Signs Temp Pulse Resp BP Pulse Ox 98.3 F 67 18 164/68 98 02/18/17 07:41 02/18/17 07:41 02/18/17 07:41 02/18/17 07:41 02/18/17 07:41 Temperature -Last 24 Hours Temperature 98.3 F Temperature 98.4 F Temperature 98.7 F Temperature 98.0 F Temperature 98.2 F - Labs CBC & Chem 7: 02/18/17 03:48 02/18/17 03:48 Labs: Abnormal lab results 02/17/17 02/18/17 02/18/17 Range/Units 06:00 03:48 03:48 Hgb 8.2 L (11.8-15.2) gm/dl Hct 24.9 L (35.5-45.6) % MCV 65 L (84-94) fl MCH 22 L (28-32) pg RDW 18.2 H (13.2-15.2) % [place] % (Auto) 13.2 H (0.0-7.3) % Eos % (Auto) 4.7 H (0.0-4.3) % [place] # 0.9 H (0.0-0.8) K/mm3 Sodium 135 L (137-145) mmol/L Chloride 91.7 L (98-107) mmol/L BUN 30 H (9-20) mg/dL Creatinine 6.3 H (0.8-1.5) mg/dL C-Reactive Protein 2.30 H (0.00-1.30) mg/dL
[2017-02-18] MEDS ORDERED: DULCOLAX PO PRN (14:00)
[2017-02-18] MEDS: MILK OF MAGNESIA PO PRN (14:13)
[2017-02-18] MEDS: APRESOLINE PO SCH ×2 (14:13→22:41)
[2017-02-18] MEDS: APRESOLINE IV PRN (18:27)
[2017-02-19] MEDS: HEPARIN SUB-Q SCH ×3 (05:56→21:07)
[2017-02-19] MEDS: APRESOLINE PO SCH ×3 (05:56→21:07)
--- NOTE | 2017-02-19 07:58 | Progress Note ---
<JIMBO WASHINGTON - Last Filed: 02/19/17 15:04> Assessment and Plan Assessment and plan: Patient is a 71 year old man with past medical history of end-stage renal disease on hemodialysis. Who presents complaining of poor urine outputs and facial redness and swelling. Patience was really preoccupied with the fact that his urine output has become less. Acute Hallucinations Treat underline problem CT of the head ordered Right facial erythema: Most likelydue to herpes Zoster, less likely cellulitis. CT face negative. CRP= 2.3 Follow Blood cultures Discontinue acyclovir IV and transition to PO valtrex Managed by ID Supportive care Hypertension Optimize home antihypertensive meds IV hydralazine for SBP>160 Closely monitor blood pressure End-stage renal disease on dialysis Patient will have urgent dialysis today Nephrology consulted Diabetes mellitus Accu-Chek before meals and at bedtime Sliding scale insulin/NovoLog ADA carbohydrate consistent diet Chronic anemia H&H stable for patient at this point; no blood transfusions needed Closely monitor H&H Cough likely an URTI, CXR neg for PNA supportive care as needed Hyponatremia Most likely due to ESRD, patient has HD today that will correct it Closely monitor electrolytes DVT prophylaxis Heparin History Interval history: Patient a period of confusion and hallucination over night. Labs and nursing notes reviewed. Hospitalist Physical - Constitutional Vitals: Temp Pulse Resp BP Pulse Ox 98.2 F 83 18 185/90 97 02/18/17 20:05 02/19/17 05:56 02/18/17 22:00 02/19/17 05:56 02/18/17 20:05 General appearance: Present: no acute distress, well-nourished - EENT Eyes: Present: PERRL ENT: hearing intact - Neck Neck: Present: supple - Respiratory Respiratory effort: normal Respiratory: bilateral: CTA - Cardiovascular Rhythm: regular Heart Sounds: Present: S1 & S2 - Abdominal General gastrointestinal: soft, non-tender - Integumentary Integumentary: Present: clear, warm, dry - Psychiatric Psychiatric: appropriate mood/affect - Neurologic Neurologic: moves all extremities - Allied Health Allied health notes reviewed: nursing Results - Labs CBC & Chem 7: 02/18/17 03:48 02/18/17 03:48 Labs: Laboratory Last Values WBC 7.0 K/mm3 (4.5-11.0) 02/18/17 03:48 RBC 3.81 M/mm3 (3.65-5.03) 02/18/17 03:48 Hgb 8.2 gm/dl (11.8-15.2) L 02/18/17 03:48 Hct 24.9 % (35.5-45.6) L 02/18/17 03:48 MCV 65 fl (84-94) L 02/18/17 03:48 MCH 22 pg (28-32) L 02/18/17 03:48 MCHC 33 % (32-34) 02/18/17 03:48 RDW 18.2 % (13.2-15.2) H 02/18/17 03:48 Plt Count 181 K/mm3 (140-440) 02/18/17 03:48 Lymph % (Auto) 23.1 % (13.4-35.0) 02/18/17 03:48 [place] % (Auto) 13.2 % (0.0-7.3) H 02/18/17 03:48 Eos % (Auto) 4.7 % (0.0-4.3) H 02/18/17 03:48 Baso % (Auto) 1.5 % (0.0-1.8) 02/18/17 03:48 Lymph # 1.6 K/mm3 (1.2-5.4) 02/18/17 03:48 [place] # 0.9 K/mm3 (0.0-0.8) H 02/18/17 03:48 Eos # 0.3 K/mm3 (0.0-0.4) 02/18/17 03:48 Baso # 0.1 K/mm3 (0.0-0.1) 02/18/17 03:48 Add Manual Diff Complete 02/16/17 07:30 Total Counted 100 02/16/17 07:30 Seg Neutrophils % 57.5 % (40.0-70.0) 02/18/17 03:48 Seg Neuts % (Manual) 77.0 % (40.0-70.0) H 02/16/17 07:30 Band Neutrophils % 1.0 % 02/16/17 07:30 Lymphocytes % (Manual) 14.0 % (13.4-35.0) 02/16/17 07:30 Reactive Lymphs % (Man) 0 % 02/16/17 07:30 Monocytes % (Manual) 5.0 % (0.0-7.3) 02/16/17 07:30 Eosinophils % (Manual) 2.0 % (0.0-4.3) 02/16/17 07:30 Basophils % (Manual) 1.0 % (0.0-1.8) 02/16/17 07:30 Metamyelocytes % 0 % 02/16/17 07:30 Myelocytes % 0 % 02/16/17 07:30 Promyelocytes % 0 % 02/16/17 07:30 Blast Cells % 0 % 02/16/17 07:30 Nucleated RBC % Not Reportable 02/16/17 07:30 Seg Neutrophils # 4.0 K/mm3 (1.8-7.7) 02/18/17 03:48 Seg Neutrophils # Man 5.1 K/mm3 (1.8-7.7) 02/16/17 07:30 Band Neutrophils # 0.1 K/mm3 02/16/17 07:30 Lymphocytes # (Manual) 0.9 K/mm3 (1.2-5.4) L 02/16/17 07:30 Abs React Lymphs (Man) 0.0 K/mm3 02/16/17 07:30 Monocytes # (Manual) 0.3 K/mm3 (0.0-0.8) 02/16/17 07:30 Eosinophils # (Manual) 0.1 K/mm3 (0.0-0.4) 02/16/17 07:30 Basophils # (Manual) 0.1 K/mm3 (0.0-0.1) 02/16/17 07:30 Metamyelocytes # 0.0 K/mm3 02/16/17 07:30 Myelocytes # 0.0 K/mm3 02/16/17 07:30 Promyelocytes # 0.0 K/mm3 02/16/17 07:30 Blast Cells # 0.0 K/mm3 02/16/17 07:30 WBC Morphology Not Reportable 02/16/17 07:30 Hypersegmented Neuts Not Reportable 02/16/17 07:30 Hyposegmented Neuts Not Reportable 02/16/17 07:30 Hypogranular Neuts Not Reportable 02/16/17 07:30 Smudge Cells Not Reportable 02/16/17 07:30 Toxic Granulation Not Reportable 02/16/17 07:30 Toxic Vacuolation Not Reportable 02/16/17 07:30 Dohle Bodies Not Reportable 02/16/17 07:30 Pelger-Huet Anomaly Not Reportable 02/16/17 07:30 Amarjit Rods Not Reportable 02/16/17 07:30 Platelet Estimate Appears normal 02/16/17 07:30 Clumped Platelets Not Reportable 02/16/17 07:30 Plt Clumps, EDTA Not Reportable 02/16/17 07:30 Large Platelets Not Reportable 02/16/17 07:30 Giant Platelets Not Reportable 02/16/17 07:30 Platelet Satelliting Not Reportable 02/16/17 07:30 Plt Morphology Comment Not Reportable 02/16/17 07:30 RBC Morphology Not Reportable 02/16/17 07:30 Dimorphic RBCs Not Reportable 02/16/17 07:30 Polychromasia Not Reportable 02/16/17 07:30 Hypochromasia 2+ 02/16/17 07:30 Poikilocytosis 2+ 02/16/17 07:30 Anisocytosis 2+ 02/16/17 07:30 Microcytosis 1+ 02/16/17 07:30 Macrocytosis Not Reportable 02/16/17 07:30 Spherocytes Not Reportable 02/16/17 07:30 Pappenheimer Bodies Not Reportable 02/16/17 07:30 Sickle Cells Not Reportable 02/16/17 07:30 Target Cells Few 02/16/17 07:30 Tear Drop Cells Few 02/16/17 07:30 Ovalocytes Not Reportable 02/16/17 07:30 Helmet Cells Not Reportable 02/16/17 07:30 Varela-Dalhart Bodies Not Reportable 02/16/17 07:30 [place] Rings Not Reportable 02/16/17 07:30 [place] Cells Not Reportable 02/16/17 07:30 Bite Cells Not Reportable 02/16/17 07:30 Crenated Cell Not Reportable 02/16/17 07:30 Elliptocytes 1+ 02/16/17 07:30 Acanthocytes (Spur) Not Reportable 02/16/17 07:30 Rouleaux Not Reportable 02/16/17 07:30 Hemoglobin C Crystals Not Reportable 02/16/17 07:30 Schistocytes Few 02/16/17 07:30 Malaria parasites Not Reportable 02/16/17 07:30 [place] Bodies Not Reportable 02/16/17 07:30 Hem Pathologist Commnt No 02/16/17 07:30 Sodium 135 mmol/L (137-145) L 02/18/17 03:48 Potassium 4.0 mmol/L (3.6-5.0) 02/18/17 03:48 Chloride 91.7 mmol/L (98-107) L 02/18/17 03:48 Carbon Dioxide 26 mmol/L (22-30) 02/18/17 03:48 Anion Gap 21 mmol/L 02/18/17 03:48 BUN 30 mg/dL (9-20) H 02/18/17 03:48 Creatinine 6.3 mg/dL (0.8-1.5) H 02/18/17 03:48 Estimated GFR 9 ml/min 02/18/17 03:48 BUN/Creatinine Ratio 5 % 02/18/17 03:48 Glucose 88 mg/dL (75-100) 02/18/17 03:48 Calcium 8.7 mg/dL (8.4-10.2) 02/18/17 03:48 C-Reactive Protein 2.30 mg/dL (0.00-1.30) H 02/17/17 06:00 <MARIAH ADAMS R - Last Filed: 02/20/17 10:11> Assessment and Plan Assessment and plan: I saw and evaluated the patient. I agree with the findings and the plan of care as documented in the Nurse Practitioner's~note, with the following corrections and additions. Hospitalist Physical - Constitutional Vitals: Temp Pulse Resp BP Pulse Ox 98.1 F 79 16 168/76 97 02/20/17 07:55 02/20/17 07:55 02/20/17 07:55 02/20/17 07:55 02/20/17 07:55 Results - Labs CBC & Chem 7: 02/18/17 03:48 02/18/17 03:48 Labs: Laboratory Last Values WBC 7.0 K/mm3 (4.5-11.0) 02/18/17 03:48 RBC 3.81 M/mm3 (3.65-5.03) 02/18/17 03:48 Hgb 8.2 gm/dl (11.8-15.2) L 02/18/17 03:48 Hct 24.9 % (35.5-45.6) L 02/18/17 03:48 MCV 65 fl (84-94) L 02/18/17 03:48 MCH 22 pg (28-32) L 02/18/17 03:48 MCHC 33 % (32-34) 02/18/17 03:48 RDW 18.2 % (13.2-15.2) H 02/18/17 03:48 Plt Count 181 K/mm3 (140-440) 02/18/17 03:48 Lymph % (Auto) 23.1 % (13.4-35.0) 02/18/17 03:48 [place] % (Auto) 13.2 % (0.0-7.3) H 02/18/17 03:48 Eos % (Auto) 4.7 % (0.0-4.3) H 02/18/17 03:48 Baso % (Auto) 1.5 % (0.0-1.8) 02/18/17 03:48 Lymph # 1.6 K/mm3 (1.2-5.4) 02/18/17 03:48 [place] # 0.9 K/mm3 (0.0-0.8) H 02/18/17 03:48 Eos # 0.3 K/mm3 (0.0-0.4) 02/18/17 03:48 Baso # 0.1 K/mm3 (0.0-0.1) 02/18/17 03:48 Add Manual Diff Complete 02/16/17 07:30 Total Counted 100 02/16/17 07:30 Seg Neutrophils % 57.5 % (40.0-70.0) 02/18/17 03:48 Seg Neuts % (Manual) 77.0 % (40.0-70.0) H 02/16/17 07:30 Band Neutrophils % 1.0 % 02/16/17 07:30 Lymphocytes % (Manual) 14.0 % (13.4-35.0) 02/16/17 07:30 Reactive Lymphs % (Man) 0 % 02/16/17 07:30 Monocytes % (Manual) 5.0 % (0.0-7.3) 02/16/17 07:30 Eosinophils % (Manual) 2.0 % (0.0-4.3) 02/16/17 07:30 Basophils % (Manual) 1.0 % (0.0-1.8) 02/16/17 07:30 Metamyelocytes % 0 % 02/16/17 07:30 Myelocytes % 0 % 02/16/17 07:30 Promyelocytes % 0 % 02/16/17 07:30 Blast Cells % 0 % 02/16/17 07:30 Nucleated RBC % Not Reportable 02/16/17 07:30 Seg Neutrophils # 4.0 K/mm3 (1.8-7.7) 02/18/17 03:48 Seg Neutrophils # Man 5.1 K/mm3 (1.8-7.7) 02/16/17 07:30 Band Neutrophils # 0.1 K/mm3 02/16/17 07:30 Lymphocytes # (Manual) 0.9 K/mm3 (1.2-5.4) L 02/16/17 07:30 Abs React Lymphs (Man) 0.0 K/mm3 02/16/17 07:30 Monocytes # (Manual) 0.3 K/mm3 (0.0-0.8) 02/16/17 07:30 Eosinophils # (Manual) 0.1 K/mm3 (0.0-0.4) 02/16/17 07:30 Basophils # (Manual) 0.1 K/mm3 (0.0-0.1) 02/16/17 07:30 Metamyelocytes # 0.0 K/mm3 02/16/17 07:30 Myelocytes # 0.0 K/mm3 02/16/17 07:30 Promyelocytes # 0.0 K/mm3 02/16/17 07:30 Blast Cells # 0.0 K/mm3 02/16/17 07:30 WBC Morphology Not Reportable 02/16/17 07:30 Hypersegmented Neuts Not Reportable 02/16/17 07:30 Hyposegmented Neuts Not Reportable 02/16/17 07:30 Hypogranular Neuts Not Reportable 02/16/17 07:30 Smudge Cells Not Reportable 02/16/17 07:30 Toxic Granulation Not Reportable 02/16/17 07:30 Toxic Vacuolation Not Reportable 02/16/17 07:30 Dohle Bodies Not Reportable 02/16/17 07:30 Pelger-Huet Anomaly Not Reportable 02/16/17 07:30 Amarjit Rods Not Reportable 02/16/17 07:30 Platelet Estimate Appears normal 02/16/17 07:30 Clumped Platelets Not Reportable 02/16/17 07:30 Plt Clumps, EDTA Not Reportable 02/16/17 07:30 Large Platelets Not Reportable 02/16/17 07:30 Giant Platelets Not Reportable 02/16/17 07:30 Platelet Satelliting Not Reportable 02/16/17 07:30 Plt Morphology Comment Not Reportable 02/16/17 07:30 RBC Morphology Not Reportable 02/16/17 07:30 Dimorphic RBCs Not Reportable 02/16/17 07:30 Polychromasia Not Reportable 02/16/17 07:30 Hypochromasia 2+ 02/16/17 07:30 Poikilocytosis 2+ 02/16/17 07:30 Anisocytosis 2+ 02/16/17 07:30 Microcytosis 1+ 02/16/17 07:30 Macrocytosis Not Reportable 02/16/17 07:30 Spherocytes Not Reportable 02/16/17 07:30 Pappenheimer Bodies Not Reportable 02/16/17 07:30 Sickle Cells Not Reportable 02/16/17 07:30 Target Cells Few 02/16/17 07:30 Tear Drop Cells Few 02/16/17 07:30 Ovalocytes Not Reportable 02/16/17 07:30 Helmet Cells Not Reportable 02/16/17 07:30 Varela-Dalhart Bodies Not Reportable 02/16/17 07:30 [place] Rings Not Reportable 02/16/17 07:30 [place] Cells Not Reportable 02/16/17 07:30 Bite Cells Not Reportable 02/16/17 07:30 Crenated Cell Not Reportable 02/16/17 07:30 Elliptocytes 1+ 02/16/17 07:30 Acanthocytes (Spur) Not Reportable 02/16/17 07:30 Rouleaux Not Reportable 02/16/17 07:30 Hemoglobin C Crystals Not Reportable 02/16/17 07:30 Schistocytes Few 02/16/17 07:30 Malaria parasites Not Reportable 02/16/17 07:30 [place]aro Bodies Not Reportable 02/16/17 07:30 Hem Pathologist Commnt No 02/16/17 07:30 Sodium 135 mmol/L (137-145) L 02/18/17 03:48 Potassium 4.0 mmol/L (3.6-5.0) 02/18/17 03:48 Chloride 91.7 mmol/L (98-107) L 02/18/17 03:48 Carbon Dioxide 26 mmol/L (22-30) 02/18/17 03:48 Anion Gap 21 mmol/L 02/18/17 03:48 BUN 30 mg/dL (9-20) H 02/18/17 03:48 Creatinine 6.3 mg/dL (0.8-1.5) H 02/18/17 03:48 Estimated GFR 9 ml/min 02/18/17 03:48 BUN/Creatinine Ratio 5 % 02/18/17 03:48 Glucose 88 mg/dL (75-100) 02/18/17 03:48 Calcium 8.7 mg/dL (8.4-10.2) 02/18/17 03:48 C-Reactive Protein 2.30 mg/dL (0.00-1.30) H 02/17/17 06:00
[2017-02-19] MEDS ORDERED: NACL 0.9% IV SCH (10:00)
[2017-02-19] MEDS ORDERED: ZOVIRAX IV SCH (10:00)
[2017-02-19] MEDS ORDERED: GUAIFENESIN DM SYRUP PO PRN (10:09)
[2017-02-19] MEDS ORDERED: APRESOLINE PO SCH (11:10)
--- NOTE | 2017-02-19 11:10 | Progress Note ---
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 awake, alert, in NAD, reports improving facial pain Objective - Vital Signs Vital signs: Vital Signs - 12hr 02/19/17 02/19/17 02/19/17 04:31 05:56 07:40 Temperature 98.3 F 97.8 F Pulse Rate 82 83 77 Respiratory 18 20 Rate Blood Pressure 185/90 185/90 Blood Pressure 191/85 [Right] O2 Sat by Pulse 98 95 Oximetry - General Appearance General appearance: well-developed, well-nourished, appears stated age EENT: ATNC, PERRL, mucous membranes moist, other (R facial herpez zoster ) Neck: no JVD Respiratory: Present: Clear to Ascultation Cardiology: regular, S1S2 Gastrointestinal: normoactive bowel sounds Integumentary: no rash, other (no edema ) Neurologic: no focal deficit, alert and oriented x3, strength 5/5, CN 3-12 intact Psychiatric: mood/affect appropriate, cooperative - Lab 02/18/17 03:48 02/18/17 03:48 Most recent lab results Calcium 8.7 mg/dL (8.4-10.2) 02/18/17 03:48
--- NOTE | 2017-02-19 11:35 | Progress Note ---
Assessment and Plan Assessment: 1) Right facial erythema: likely Herpes Zoster, less likely cellulitis. CT face negative. CRP=2.3 2) ESRD Plan: -ok to d/c home on valtrex 1 g PO q12h total 7 days I am signing off Thank you Dr Casas for your consultation, will follow up with you. Polly Coyle MD Infectious Diseases Specialist [facility] ([facility]) M [phone] O [phone] Subjective Date of service: 02/19/17 Principal diagnosis: herpes zoster, ESRD Interval history: Feels better, no fever. Microbiology: Blood cultures: 02/16 ngtd Current Antimicrobials: Acyclovir Previous Antimicrobials: Clindamycin 02/16 Objective - Exam Narrative Exam: General appearance: Alert in NAD, conversant Eyes: anicteric sclerae, moist conjunctivae; no lid-lag; PERRLA HENT: Atraumatic; oropharynx clear with moist mucous membranes and no mucosal ulcerations/no oral thrush; normal hard and soft palate. Normal external ears. Neck: Trachea midline; supple, no thyromegaly or lymphadenopathy Lungs: CTA, with normal respiratory effort and no intercostal retractions CV: RRR, no murmurs Abdomen: Soft, non-tender; no masses or hepatosplenomegaly Extremities: No peripheral edema or extremity lymphadenopathy Skin: right facial erythema and multiple small ulcers mainly in nose, cheek. A/ V graft with positive bruit and thrill. Psych: Appropriate affect, alert and oriented to person, place and time. Neuro: alert and oriented x 3. Moving all extermities Lines: No CVL / PICC - Constitutional Vitals: Vital Signs Temp Pulse Resp BP Pulse Ox 97.8 F 77 20 191/85 95 02/19/17 07:40 02/19/17 07:40 02/19/17 07:40 02/19/17 07:40 02/19/17 07:40 Temperature -Last 24 Hours Temperature 97.8 F Temperature 98.3 F Temperature 98.2 F Temperature 98.5 F Temperature 98.4 F - Labs CBC & Chem 7: 02/18/17 03:48 02/18/17 03:48
[2017-02-19] MEDS: APRESOLINE IV PRN ×3 (11:40→18:31)
--- NOTE | 2017-02-19 12:00 | Discharge Summary ---
<JIMBO WASHINGTON - Last Filed: 03/06/17 11:44> Providers - Providers Date of Admission: 02/16/17 14:26 Date of discharge: 02/21/17 Attending physician: MARIAH ADAMS 02/16/17 14:09 Consult to Physician [CONS] Routine Consulting Provider: KONRAD APONTE Reason For Exam: facial cellulitis Place consult to:: DR. GILL Notified:: YES Phone number called:: [phone] Was contact made?: Yes If yes, spoke with:: DR. GILL Time called:: 18:47 Comment:: [place]O Consult to Physician [CONS] Routine Consulting Provider: CARROLL GUERRERO Reason For Exam: esrd Place consult to:: ANSWERING SERVICE Notified:: YES Was contact made?: Yes If yes, spoke with:: DERRICK Time called:: 18:50 Comment:: [place] Primary care physician: DIRECTOR OF ENROLLMENT Hospitalization Condition: Fair Hospital course: 71 year old man with past medical history of end-stage renal disease on hemodialysis. Who presents complaining of poor urine outputs and facial redness and swelling. Patient was diagnosed with Right facial erythema, Hypertension, End-stage renal disease on dialysis, Diabetes mellitus, Chronic anemia, Cough and Hyponatremia and acute hallucinations. Patient presented with facial erythema and swelling. Cellulities r/O; CRP=2.3. Patients facial redness is most likely due to herpes Zoster. He was treated with IV acyclovir. He is being discharged on PO valtrex ESRD dose. Patient had an episode of acute hallucinations; CT of the head no acute intracranial abnormality. He received emergent dialysis, during which excess fluid was removed, and his hyperkalemia corrected with HD, he was restarted on the rest of his meds. Patient is clinically improved. Patient advised to follow-up with his primary care provider. Discahrge Dignosed Acute Hallucinations Right facial erythema due to herpes Zoster Hypertension End-stage renal disease on dialysis Diabetes mellitus Chronic anemia Cough Hyponatremia Disposition: - TO HOME OR SELFCARE Time spent for discharge: 35 minutes Core Measure Documentation - Palliative Care Palliative Care/ Comfort Measures: Not Applicable - Core Measures Any of the following diagnoses?: none Exam - Constitutional Vitals: Temp Pulse Resp BP Pulse Ox 98.2 F 78 18 212/100 95 02/19/17 09:50 02/19/17 11:40 02/19/17 09:50 02/19/17 11:40 02/19/17 07:40 General appearance: Present: no acute distress - EENT Eyes: Present: PERRL ENT: hearing intact - Neck Neck: Present: supple - Respiratory Respiratory effort: normal Respiratory: bilateral: CTA - Cardiovascular Rhythm: regular Heart Sounds: Present: S1 & S2 - Abdominal General gastrointestinal: Present: soft, non-tender Male genitourinary: Present: deferred - Rectal Rectal Exam: deferred - Integumentary Integumentary: Present: clear (rythema to left face with open wound), warm, dry - Musculoskeletal Musculoskeletal: strength equal bilaterally - Psychiatric Psychiatric: appropriate mood/affect - Neurologic Neurologic: moves all extremities Plan Diet: low fat, low cholesterol, low salt, diabetic, renal Follow up with: PRIMARY CARE,MD [Primary Care Provider] - 3-5 Days Prescriptions: Calamine/Zinc Oxide [Calamine Lotion] 180 ml TP BID 30 Days lotion guaiFENesin DM [Guaifenesin Dm Syrup] 20 ml PO Q4H PRN 15 Days oral.liqd PRN Reason: Cough hydrALAZINE [Apresoline TAB] 100 mg PO Q8HR #30 tab NIFEdipine [Nifedipine ER] 60 mg PO ONCE #30 tab.er.24 oxyCODONE /ACETAMINOPHEN [Percocet 5/325 mg] 1 tab PO Q12H PRN #10 tablet PRN Reason: Pain, Moderate (4-6) valACYclovir [Valtrex] 500 mg PO QDAY 4 Days tablet <CLARK BAIRD - Last Filed: 03/07/17 02:04> Providers - Providers Date of Admission: 02/16/17 14:26 Attending physician: CLARK BAIRD 02/16/17 14:09 Consult to Physician [CONS] Routine Consulting Provider: KONRAD APONTE Reason For Exam: facial cellulitis Place consult to:: DR. GILL Notified:: YES Phone number called:: [phone] Was contact made?: Yes If yes, spoke with:: DR. GILL Time called:: 18:47 Comment:: [place] Consult to Physician [CONS] Routine Consulting Provider: CARROLL GUERRERO Reason For Exam: esrd Place consult to:: ANSWERING SERVICE Notified:: YES Was contact made?: Yes If yes, spoke with:: DERRICK Time called:: 18:50 Comment:: [place] Primary care physician: DIRECTOR OF ENROLLMENT Hospitalization Hospital course: I saw and evaluated the patient. I agree with the findings and the plan of care as documented in the Nurse Practitioner's~note, with the following corrections and additions. Patient is 72 yo with Herpes zoster. Exam - Constitutional Vitals: Temp Pulse Resp BP Pulse Ox 97.6 F 83 18 158/80 95 02/21/17 20:05 02/21/17 20:05 02/21/17 20:05 02/21/17 20:05 02/21/17 20:05
--- NOTE | 2017-02-19 16:10 | Cat Scan Report ---
FINAL REPORT PROCEDURE: CT head without contrast. TECHNIQUE: Computerized tomography of the head was performed without contrast material. HISTORY: Change in mental status. COMPARISON: No prior studies are available for comparison. FINDINGS: The ventricles are normal in size. The centeno matter and white matter appear normal. There are no mass lesions. There is no intracranial hemorrhage. There are no signs of acute infarction. The calvarium appears intact. The mastoid air cells are clear. There is mucosal thickening in the right maxillary sinus. There is mucosal thickening in the majority of the right ethmoid air cells. IMPRESSION: Normal study of the brain. Chronic sinusitis as described.
[2017-02-19] MEDS: FOSRENOL PO SCH (16:28)
[2017-02-19] MEDS: VALTREX PO SCH (16:28)
[2017-02-19] MEDS: PROCARDIA XL PO SCH (16:44)
[2017-02-19] MEDS ORDERED: APRESOLINE IV PRN (20:24)
[2017-02-19] MEDS ORDERED: VALTREX PO SCH (22:00)
[2017-02-20] MEDS: APRESOLINE PO SCH ×3 (08:00→22:59)
[2017-02-20] MEDS: HEPARIN SUB-Q SCH ×3 (08:00→23:50)
[2017-02-20] MEDS: MILK OF MAGNESIA PO PRN (09:19)
[2017-02-20] MEDS: FOSRENOL PO SCH (13:23)
[2017-02-20] MEDS: VALTREX PO SCH (13:24)
[2017-02-20] MEDS: PROCARDIA XL PO SCH (13:24)
--- NOTE | 2017-02-20 16:00 | Progress Note ---
<JIMBO WASHINGTON - Last Filed: 03/06/17 11:42> Assessment and Plan Assessment and plan: Patient is a 71 year old man with past medical history of end-stage renal disease on hemodialysis. Who presents complaining of poor urine outputs and facial redness and swelling. Patience was really preoccupied with the fact that his urine output has become less. Acute Hallucinations Treat underline problem CT of the head negative Right facial erythema Most likely due to herpes Zoster, less likely cellulitis. CT face negative. CRP= 2.3 Follow Blood cultures Discontinue acyclovir IV and transition to PO valtrex Managed by ID Supportive care Hypertension Optimize home antihypertensive meds IV hydralazine for SBP>160 Closely monitor blood pressure End-stage renal disease on dialysis Patient will have urgent dialysis today Nephrology consulted Diabetes mellitus Accu-Chek before meals and at bedtime Sliding scale insulin/NovoLog ADA carbohydrate consistent diet Chronic anemia H&H stable for patient at this point; no blood transfusions needed Closely monitor H&H Cough likely an URTI, CXR neg for PNA supportive care as needed Hyponatremia Most likely due to ESRD, patient has HD today that will correct it Closely monitor electrolytes DVT prophylaxis Heparin History Interval history: Patient denies having any pain. Labs and nursing reviewed. Hospitalist Physical - Constitutional Vitals: Temp Pulse Resp BP Pulse Ox 98.1 F 79 16 168/76 97 02/20/17 07:55 02/20/17 07:55 02/20/17 07:55 02/20/17 07:55 02/20/17 07:55 General appearance: Present: no acute distress, well-nourished - EENT Eyes: Present: PERRL ENT: hearing intact - Neck Neck: Present: supple - Respiratory Respiratory effort: normal Respiratory: bilateral: CTA - Cardiovascular Rhythm: regular Heart Sounds: Present: S1 & S2 - Abdominal General gastrointestinal: soft, non-tender - Integumentary Integumentary: Present: clear (erythema to left face with open wound ), warm, dry - Psychiatric Psychiatric: appropriate mood/affect - Neurologic Neurologic: moves all extremities - Allied Health Allied health notes reviewed: nursing Results - Labs CBC & Chem 7: 02/18/17 03:48 02/18/17 03:48 Labs: Laboratory Last Values WBC 7.0 K/mm3 (4.5-11.0) 02/18/17 03:48 RBC 3.81 M/mm3 (3.65-5.03) 02/18/17 03:48 Hgb 8.2 gm/dl (11.8-15.2) L 02/18/17 03:48 Hct 24.9 % (35.5-45.6) L 02/18/17 03:48 MCV 65 fl (84-94) L 02/18/17 03:48 MCH 22 pg (28-32) L 02/18/17 03:48 MCHC 33 % (32-34) 02/18/17 03:48 RDW 18.2 % (13.2-15.2) H 02/18/17 03:48 Plt Count 181 K/mm3 (140-440) 02/18/17 03:48 Lymph % (Auto) 23.1 % (13.4-35.0) 02/18/17 03:48 [place] % (Auto) 13.2 % (0.0-7.3) H 02/18/17 03:48 Eos % (Auto) 4.7 % (0.0-4.3) H 02/18/17 03:48 Baso % (Auto) 1.5 % (0.0-1.8) 02/18/17 03:48 Lymph # 1.6 K/mm3 (1.2-5.4) 02/18/17 03:48 [place] # 0.9 K/mm3 (0.0-0.8) H 02/18/17 03:48 Eos # 0.3 K/mm3 (0.0-0.4) 02/18/17 03:48 Baso # 0.1 K/mm3 (0.0-0.1) 02/18/17 03:48 Add Manual Diff Complete 02/16/17 07:30 Total Counted 100 02/16/17 07:30 Seg Neutrophils % 57.5 % (40.0-70.0) 02/18/17 03:48 Seg Neuts % (Manual) 77.0 % (40.0-70.0) H 02/16/17 07:30 Band Neutrophils % 1.0 % 02/16/17 07:30 Lymphocytes % (Manual) 14.0 % (13.4-35.0) 02/16/17 07:30 Reactive Lymphs % (Man) 0 % 02/16/17 07:30 Monocytes % (Manual) 5.0 % (0.0-7.3) 02/16/17 07:30 Eosinophils % (Manual) 2.0 % (0.0-4.3) 02/16/17 07:30 Basophils % (Manual) 1.0 % (0.0-1.8) 02/16/17 07:30 Metamyelocytes % 0 % 02/16/17 07:30 Myelocytes % 0 % 02/16/17 07:30 Promyelocytes % 0 % 02/16/17 07:30 Blast Cells % 0 % 02/16/17 07:30 Nucleated RBC % Not Reportable 02/16/17 07:30 Seg Neutrophils # 4.0 K/mm3 (1.8-7.7) 02/18/17 03:48 Seg Neutrophils # Man 5.1 K/mm3 (1.8-7.7) 02/16/17 07:30 Band Neutrophils # 0.1 K/mm3 02/16/17 07:30 Lymphocytes # (Manual) 0.9 K/mm3 (1.2-5.4) L 02/16/17 07:30 Abs React Lymphs (Man) 0.0 K/mm3 02/16/17 07:30 Monocytes # (Manual) 0.3 K/mm3 (0.0-0.8) 02/16/17 07:30 Eosinophils # (Manual) 0.1 K/mm3 (0.0-0.4) 02/16/17 07:30 Basophils # (Manual) 0.1 K/mm3 (0.0-0.1) 02/16/17 07:30 Metamyelocytes # 0.0 K/mm3 02/16/17 07:30 Myelocytes # 0.0 K/mm3 02/16/17 07:30 Promyelocytes # 0.0 K/mm3 02/16/17 07:30 Blast Cells # 0.0 K/mm3 02/16/17 07:30 WBC Morphology Not Reportable 02/16/17 07:30 Hypersegmented Neuts Not Reportable 02/16/17 07:30 Hyposegmented Neuts Not Reportable 02/16/17 07:30 Hypogranular Neuts Not Reportable 02/16/17 07:30 Smudge Cells Not Reportable 02/16/17 07:30 Toxic Granulation Not Reportable 02/16/17 07:30 Toxic Vacuolation Not Reportable 02/16/17 07:30 Dohle Bodies Not Reportable 02/16/17 07:30 Pelger-Huet Anomaly Not Reportable 02/16/17 07:30 Amarjit Rods Not Reportable 02/16/17 07:30 Platelet Estimate Appears normal 02/16/17 07:30 Clumped Platelets Not Reportable 02/16/17 07:30 Plt Clumps, EDTA Not Reportable 02/16/17 07:30 Large Platelets Not Reportable 02/16/17 07:30 Giant Platelets Not Reportable 02/16/17 07:30 Platelet Satelliting Not Reportable 02/16/17 07:30 Plt Morphology Comment Not Reportable 02/16/17 07:30 RBC Morphology Not Reportable 02/16/17 07:30 Dimorphic RBCs Not Reportable 02/16/17 07:30 Polychromasia Not Reportable 02/16/17 07:30 Hypochromasia 2+ 02/16/17 07:30 Poikilocytosis 2+ 02/16/17 07:30 Anisocytosis 2+ 02/16/17 07:30 Microcytosis 1+ 02/16/17 07:30 Macrocytosis Not Reportable 02/16/17 07:30 Spherocytes Not Reportable 02/16/17 07:30 Pappenheimer Bodies Not Reportable 02/16/17 07:30 Sickle Cells Not Reportable 02/16/17 07:30 Target Cells Few 02/16/17 07:30 Tear Drop Cells Few 02/16/17 07:30 Ovalocytes Not Reportable 02/16/17 07:30 Helmet Cells Not Reportable 02/16/17 07:30 Varela-Sandstone Bodies Not Reportable 02/16/17 07:30 [place] Rings Not Reportable 02/16/17 07:30 [place] Cells Not Reportable 02/16/17 07:30 Bite Cells Not Reportable 02/16/17 07:30 Crenated Cell Not Reportable 02/16/17 07:30 Elliptocytes 1+ 02/16/17 07:30 Acanthocytes (Spur) Not Reportable 02/16/17 07:30 Rouleaux Not Reportable 02/16/17 07:30 Hemoglobin C Crystals Not Reportable 02/16/17 07:30 Schistocytes Few 02/16/17 07:30 Malaria parasites Not Reportable 02/16/17 07:30 Genaro Bodies Not Reportable 02/16/17 07:30 Hem Pathologist Commnt No 02/16/17 07:30 Sodium 135 mmol/L (137-145) L 02/18/17 03:48 Potassium 4.0 mmol/L (3.6-5.0) 02/18/17 03:48 Chloride 91.7 mmol/L (98-107) L 02/18/17 03:48 Carbon Dioxide 26 mmol/L (22-30) 02/18/17 03:48 Anion Gap 21 mmol/L 02/18/17 03:48 BUN 30 mg/dL (9-20) H 02/18/17 03:48 Creatinine 6.3 mg/dL (0.8-1.5) H 02/18/17 03:48 Estimated GFR 9 ml/min 02/18/17 03:48 BUN/Creatinine Ratio 5 % 02/18/17 03:48 Glucose 88 mg/dL (75-100) 02/18/17 03:48 Calcium 8.7 mg/dL (8.4-10.2) 02/18/17 03:48 C-Reactive Protein 2.30 mg/dL (0.00-1.30) H 02/17/17 06:00 <CLARK BAIRD - Last Filed: 03/07/17 02:01> Assessment and Plan Assessment and plan: I saw and evaluated the patient. I agree with the findings and the plan of care as documented in the Nurse Practitioner's~note, with the following corrections and additions. patient with right facial erythema which is herpes zoster. Hospitalist Physical - Constitutional Vitals: Temp Pulse Resp BP Pulse Ox 97.6 F 83 18 158/80 95 02/21/17 20:05 02/21/17 20:05 02/21/17 20:05 02/21/17 20:05 02/21/17 20:05 Results - Labs CBC & Chem 7: 02/18/17 03:48 02/18/17 03:48 Labs: Laboratory Last Values WBC 7.0 K/mm3 (4.5-11.0) 02/18/17 03:48 RBC 3.81 M/mm3 (3.65-5.03) 02/18/17 03:48 Hgb 8.2 gm/dl (11.8-15.2) L 02/18/17 03:48 Hct 24.9 % (35.5-45.6) L 02/18/17 03:48 MCV 65 fl (84-94) L 02/18/17 03:48 MCH 22 pg (28-32) L 02/18/17 03:48 MCHC 33 % (32-34) 02/18/17 03:48 RDW 18.2 % (13.2-15.2) H 02/18/17 03:48 Plt Count 181 K/mm3 (140-440) 02/18/17 03:48 Lymph % (Auto) 23.1 % (13.4-35.0) 02/18/17 03:48 [place] % (Auto) 13.2 % (0.0-7.3) H 02/18/17 03:48 Eos % (Auto) 4.7 % (0.0-4.3) H 02/18/17 03:48 Baso % (Auto) 1.5 % (0.0-1.8) 02/18/17 03:48 Lymph # 1.6 K/mm3 (1.2-5.4) 02/18/17 03:48 [place] # 0.9 K/mm3 (0.0-0.8) H 02/18/17 03:48 Eos # 0.3 K/mm3 (0.0-0.4) 02/18/17 03:48 Baso # 0.1 K/mm3 (0.0-0.1) 02/18/17 03:48 Add Manual Diff Complete 02/16/17 07:30 Total Counted 100 02/16/17 07:30 Seg Neutrophils % 57.5 % (40.0-70.0) 02/18/17 03:48 Seg Neuts % (Manual) 77.0 % (40.0-70.0) H 02/16/17 07:30 Band Neutrophils % 1.0 % 02/16/17 07:30 Lymphocytes % (Manual) 14.0 % (13.4-35.0) 02/16/17 07:30 Reactive Lymphs % (Man) 0 % 02/16/17 07:30 Monocytes % (Manual) 5.0 % (0.0-7.3) 02/16/17 07:30 Eosinophils % (Manual) 2.0 % (0.0-4.3) 02/16/17 07:30 Basophils % (Manual) 1.0 % (0.0-1.8) 02/16/17 07:30 Metamyelocytes % 0 % 02/16/17 07:30 Myelocytes % 0 % 02/16/17 07:30 Promyelocytes % 0 % 02/16/17 07:30 Blast Cells % 0 % 02/16/17 07:30 Nucleated RBC % Not Reportable 02/16/17 07:30 Seg Neutrophils # 4.0 K/mm3 (1.8-7.7) 02/18/17 03:48 Seg Neutrophils # Man 5.1 K/mm3 (1.8-7.7) 02/16/17 07:30 Band Neutrophils # 0.1 K/mm3 02/16/17 07:30 Lymphocytes # (Manual) 0.9 K/mm3 (1.2-5.4) L 02/16/17 07:30 Abs React Lymphs (Man) 0.0 K/mm3 02/16/17 07:30 Monocytes # (Manual) 0.3 K/mm3 (0.0-0.8) 02/16/17 07:30 Eosinophils # (Manual) 0.1 K/mm3 (0.0-0.4) 02/16/17 07:30 Basophils # (Manual) 0.1 K/mm3 (0.0-0.1) 02/16/17 07:30 Metamyelocytes # 0.0 K/mm3 02/16/17 07:30 Myelocytes # 0.0 K/mm3 02/16/17 07:30 Promyelocytes # 0.0 K/mm3 02/16/17 07:30 Blast Cells # 0.0 K/mm3 02/16/17 07:30 WBC Morphology Not Reportable 02/16/17 07:30 Hypersegmented Neuts Not Reportable 02/16/17 07:30 Hyposegmented Neuts Not Reportable 02/16/17 07:30 Hypogranular Neuts Not Reportable 02/16/17 07:30 Smudge Cells Not Reportable 02/16/17 07:30 Toxic Granulation Not Reportable 02/16/17 07:30 Toxic Vacuolation Not Reportable 02/16/17 07:30 Dohle Bodies Not Reportable 02/16/17 07:30 Pelger-Huet Anomaly Not Reportable 02/16/17 07:30 Amarjit Rods Not Reportable 02/16/17 07:30 Platelet Estimate Appears normal 02/16/17 07:30 Clumped Platelets Not Reportable 02/16/17 07:30 Plt Clumps, EDTA Not Reportable 02/16/17 07:30 Large Platelets Not Reportable 02/16/17 07:30 Giant Platelets Not Reportable 02/16/17 07:30 Platelet Satelliting Not Reportable 02/16/17 07:30 Plt Morphology Comment Not Reportable 02/16/17 07:30 RBC Morphology Not Reportable 02/16/17 07:30 Dimorphic RBCs Not Reportable 02/16/17 07:30 Polychromasia Not Reportable 02/16/17 07:30 Hypochromasia 2+ 02/16/17 07:30 Poikilocytosis 2+ 02/16/17 07:30 Anisocytosis 2+ 02/16/17 07:30 Microcytosis 1+ 02/16/17 07:30 Macrocytosis Not Reportable 02/16/17 07:30 Spherocytes Not Reportable 02/16/17 07:30 Pappenheimer Bodies Not Reportable 02/16/17 07:30 Sickle Cells Not Reportable 02/16/17 07:30 Target Cells Few 02/16/17 07:30 Tear Drop Cells Few 02/16/17 07:30 Ovalocytes Not Reportable 02/16/17 07:30 Helmet Cells Not Reportable 02/16/17 07:30 Varela-Sandstone Bodies Not Reportable 02/16/17 07:30 [place] Rings Not Reportable 02/16/17 07:30 [place] Cells Not Reportable 02/16/17 07:30 Bite Cells Not Reportable 02/16/17 07:30 Crenated Cell Not Reportable 02/16/17 07:30 Elliptocytes 1+ 02/16/17 07:30 Acanthocytes (Spur) Not Reportable 02/16/17 07:30 Rouleaux Not Reportable 02/16/17 07:30 Hemoglobin C Crystals Not Reportable 02/16/17 07:30 Schistocytes Few 02/16/17 07:30 Malaria parasites Not Reportable 02/16/17 07:30 Genaro Bodies Not Reportable 02/16/17 07:30 Hem Pathologist Commnt No 02/16/17 07:30 Sodium 135 mmol/L (137-145) L 02/18/17 03:48 Potassium 4.0 mmol/L (3.6-5.0) 02/18/17 03:48 Chloride 91.7 mmol/L (98-107) L 02/18/17 03:48 Carbon Dioxide 26 mmol/L (22-30) 02/18/17 03:48 Anion Gap 21 mmol/L 02/18/17 03:48 BUN 30 mg/dL (9-20) H 02/18/17 03:48 Creatinine 6.3 mg/dL (0.8-1.5) H 02/18/17 03:48 Estimated GFR 9 ml/min 02/18/17 03:48 BUN/Creatinine Ratio 5 % 02/18/17 03:48 Glucose 88 mg/dL (75-100) 02/18/17 03:48 Calcium 8.7 mg/dL (8.4-10.2) 02/18/17 03:48 C-Reactive Protein 2.30 mg/dL (0.00-1.30) H 02/17/17 06:00
--- NOTE | 2017-02-20 21:37 | Progress Note ---
Assessment and Plan - Patient Problems (1) End stage renal disease Current Visit: Yes Status: Acute Plan to address problem: cont HD MWF schedule (2) Herpes zoster Current Visit: Yes Status: Acute Plan to address problem: antiviral treatment w/ acyclovir as per ID (3) Facial cellulitis Current Visit: Yes Status: Acute Plan to address problem: ABXs as per ID (4) Hypertensive chronic kidney disease with stage 5 chronic kidney disease or end stage renal disease Current Visit: Yes Status: Acute Plan to address problem: BP remains elevated, increase hydralazine to 100mg po tid (5) Anemia in chronic illness Current Visit: Yes Status: Acute Plan to address problem: EPO with HD Subjective Date of service: 02/20/17 Principal diagnosis: herpes zoster, ESRD Interval history: pt awake, alert, in NAD, reports improving facial pain Objective - Vital Signs Vital signs: Vital Signs - 12hr 02/20/17 02/20/17 15:42 19:56 Temperature 97.1 F L 97.7 F Pulse Rate 83 78 Respiratory 20 20 Rate Blood Pressure 153/75 O2 Sat by Pulse 98 96 Oximetry - General Appearance General appearance: well-developed, well-nourished, appears stated age EENT: ATNC, PERRL, mucous membranes moist Neck: no JVD Respiratory: Present: Clear to Ascultation Cardiology: regular, S1S2 Gastrointestinal: normoactive bowel sounds Integumentary: no rash, other (no edema ) Neurologic: no focal deficit, alert and oriented x3, strength 5/5, CN 3-12 intact Psychiatric: mood/affect appropriate, cooperative - Lab 02/18/17 03:48 02/18/17 03:48 Most recent lab results Calcium 8.7 mg/dL (8.4-10.2) 02/18/17 03:48
[2017-02-21] MEDS: HEPARIN SUB-Q SCH ×2 (05:50→14:29)
[2017-02-21] MEDS: APRESOLINE PO SCH ×2 (05:50→14:29)
[2017-02-21] MEDS ORDERED: CATAPRES PO SCH (10:00)
[2017-02-21] MEDS: VALTREX PO SCH (10:10)
[2017-02-21] MEDS: PROCARDIA XL PO SCH (10:10)
[2017-02-21] MEDS: FOSRENOL PO SCH (10:11)
--- NOTE | 2017-02-21 13:55 | Progress Note ---
Assessment and Plan - Patient Problems (1) End stage renal disease Current Visit: Yes Status: Acute Plan to address problem: cont HD MWF schedule (2) Herpes zoster Current Visit: Yes Status: Acute Plan to address problem: antiviral treatment w/ acyclovir as per ID (3) Facial cellulitis Current Visit: Yes Status: Acute Plan to address problem: ABXs as per ID (4) Hypertensive chronic kidney disease with stage 5 chronic kidney disease or end stage renal disease Current Visit: Yes Status: Acute Plan to address problem: BP remains elevated, will target UF 3-4L as tolerated. hydralazine was increased to 100mg po tid (5) Anemia in chronic illness Current Visit: Yes Status: Acute Plan to address problem: EPO with HD Subjective Date of service: 02/21/17 Principal diagnosis: herpes zoster, ESRD Interval history: pt awake, alert, in NAD, reports improving facial pain/swelling Objective - Vital Signs Vital signs: Vital Signs - 12hr 02/21/17 02/21/17 02/21/17 05:43 07:22 10:00 Temperature 97.8 F 98.7 F Pulse Rate 78 79 Respiratory 18 20 Rate Respiratory 18 Rate [Right Face] Blood Pressure 160/73 Blood Pressure 170/77 [Right] O2 Sat by Pulse 96 96 Oximetry 02/21/17 02/21/17 10:10 10:15 Temperature Pulse Rate 76 Respiratory 18 Rate Respiratory Rate [Right Face] Blood Pressure 170/77 Blood Pressure [Right] O2 Sat by Pulse Oximetry - General Appearance General appearance: well-developed, well-nourished, appears stated age EENT: ATNC, PERRL, mucous membranes moist, other (rt facial zoster) Neck: no JVD Respiratory: Present: Clear to Ascultation Cardiology: regular, S1S2 Gastrointestinal: normoactive bowel sounds Integumentary: no rash, other (no edema ) Neurologic: no focal deficit, alert and oriented x3, strength 5/5, CN 3-12 intact Psychiatric: mood/affect appropriate, cooperative - Lab 02/18/17 03:48 02/18/17 03:48 Most recent lab results Calcium 8.7 mg/dL (8.4-10.2) 02/18/17 03:48
[2017-02-21] MEDS ORDERED: NACL 0.9 (PRIMING MACHINE ONLY DIALYSIS) MC ONE (16:20)
[2017-02-21 20:14] VITALS: BP 158/80
== END 2017-02-21 20:25 | disposition home or self-care (01) | DRG 871 ==
LOC: ED 18:51 → 2B-ACE 02-16 14:26
PROVIDERS: ADMIT Internal Medicine; ATTEND Internal Medicine
PROC: 5A1D70Z Performance of Urinary Filtration, Intermittent, Less than 6 Hours Per Day (ICD-10-PCS; principal; 2017-02-17)
PROC: 5A1D70Z Performance of Urinary Filtration, Intermittent, Less than 6 Hours Per Day (ICD-10-PCS; 2017-02-19)
PROC: 5A1D70Z Performance of Urinary Filtration, Intermittent, Less than 6 Hours Per Day (ICD-10-PCS; 2017-02-21)
DX: A41.9 Sepsis, unspecified organism (principal); N18.6 End stage renal disease; L03.211 Cellulitis of face; I12.0 Hypertensive chronic kidney disease with stage 5 chronic kidney disease or end stage renal disease; E87.1 Hypo-osmolality and hyponatremia; I16.0 Hypertensive urgency; J06.9 Acute upper respiratory infection, unspecified; B02.9 Zoster without complications; D63.8 Anemia in other chronic diseases classified elsewhere; E11.22 Type 2 diabetes mellitus with diabetic chronic kidney disease; M19.90 Unspecified osteoarthritis, unspecified site; Z99.2 Dependence on renal dialysis; Z82.49 Family history of ischemic heart disease and other diseases of the circulatory system; Z79.899 Other long term (current) drug therapy; Z86.73 Personal history of transient ischemic attack (TIA), and cerebral infarction without residual deficits
CPT/HCPCS: 36415; 70450; 70487; 71020; 74176; 80048; 85007; 85025; 85027; 86140; 87040; 96365; 96375; 99285; J0133; J0360; J0885; J1644; J2270; J2405; J7030; Q9967

== ENCOUNTER 2018-07-12 10:44 | Inpatient (IN) | payer MEDICARE ==
[2018-07-12 12:24] LABS: INR 0.91 (0.87-1.13)
[2018-07-12 12:25] LABS: Partial Thromboplastin Time 39.6 Sec. (24.2-36.6)
[2018-07-12 12:31] LABS: Hematocrit 31.1 % (35.5-45.6); Hemoglobin 9.8 gm/dl (11.8-15.2); Mean Corpuscular HGB Conc 31 % (32-34); Platelet Count 254 K/mm3 (140-440); Red Blood Count 4.85 M/mm3 (3.65-5.03)
[2018-07-12 12:32] LABS: Mean Corpuscular Volume 64 fl (84-94); Red Cell Distribution Width 20.3 % (13.2-15.2)
[2018-07-12 12:35] LABS: Creatine Kinase MB 2.8 ng/mL (0.0-4.0)
--- NOTE | 2018-07-12 12:37 | XRay Report ---
PROCEDURE: XR CHEST ROUTINE 2V TECHNIQUE: Chest, 2 views HISTORY: Chest Pain COMPARISON: 02/16/2017 FINDINGS: There is unchanged mild cardiomegaly. There is no convincing vascular congestion. There is some right basilar atelectasis versus infiltrate. There may be trace right pleural fluid. There is no pneumothorax seen. IMPRESSION: Right basilar atelectasis versus infiltrate and trace right pleural fluid. This document is electronically signed by Teresa Schwab MD., July 12 2018 12:35:20 PM ET
[2018-07-12] MEDS ORDERED: ASPIRIN PO ONE (13:17)
[2018-07-12 13:26] LABS: Band Neutrophils # (Manual) 0.1 K/mm3; Total Cells Counted 100
[2018-07-12 13:27] LABS: Anisocytosis 2+; Hypochromasia 1+; Ovalocytes Few; Poikilocytosis 1+; Tear Drop Cells Few
[2018-07-12 13:28] LABS: Platelet Estimate Consistent w Auto; Target Cells Few
[2018-07-12 13:44] LABS: Chol/HDL Ratio 1.89 %; HDL Cholesterol 98 mg/dL (40-59); LDL Cholesterol,Direct 86 mg/dL (50-130)
[2018-07-12 13:53] LABS: Albumin 4.7 g/dL (3.9-5); Calcium 9.8 mg/dL (8.4-10.2)
--- NOTE | 2018-07-12 14:17 | Emergency Department Report ---
ED Shortness of Breath HPI - General Chief Complaint: Dyspnea/Respdistress Stated Complaint: SOB/LEGS SWOLLEN Time Seen by Provider: 07/12/18 13:54 Source: patient Mode of arrival: Ambulatory Limitations: No Limitations - History of Present Illness Initial Comments: Patient is 73 years old male with history of end-stage renal disease on hemodialysis. Patient presented to the ER complaining of shortness of breath since yesterday. Patient also complaining of right lower extremity swelling. When I ask him about the swelling patient does not know when it is started but he think this is very recent. Patient denied any chest pain. Patient is compli ant with his dialysis with last dialysis Friday. Patient denied any fever or chills. MD Complaint: shortness of breath - Related Data Home Medications Medication Instructions Recorded Confirmed Last Taken Furosemide [Lasix] 80 mg PO ONCE 02/16/17 02/16/17 Unknown Lanthanum Carbonate [Fosrenol] 1,000 mg PO ONCE 02/16/17 02/16/17 Unknown Previous Rx's Medication Instructions Recorded Last Taken Type Lanthanum Carbonate [Fosrenol] 1,000 mg PO QDAY tab.chew 02/19/17 Unknown Rx Magnesium Hydroxide [Milk of 30 ml PO Q4H PRN oral.liqd 02/19/17 Unknown Rx Magnesia] NIFEdipine [Nifedipine ER] 60 mg PO ONCE #30 tab.er.24 02/19/17 Unknown Rx guaiFENesin DM [Guaifenesin Dm 20 ml PO Q4H PRN 15 Days oral.liqd 02/19/17 Unknown Rx Syrup] hydrALAZINE [Apresoline TAB] 100 mg PO Q8HR #30 tab 02/19/17 Unknown Rx oxyCODONE /ACETAMINOPHEN [Percocet 1 tab PO Q12H PRN #10 tablet 02/19/17 Unknown Rx 5/325 mg] Calamine/Zinc Oxide [Calamine 180 ml TP BID 30 Days lotion 02/21/17 Unknown Rx Lotion] valACYclovir [Valtrex] 500 mg PO QDAY 4 Days tablet 02/21/17 Unknown Rx Allergies Allergy/AdvReac Type Severity Reaction Status Date / Time No Known Allergies Allergy Verified 07/12/18 10:46 ED Review of Systems ROS: Stated complaint: SOB/LEGS SWOLLEN Other details as noted in HPI Comment: All other systems reviewed and negative Constitutional: denies: chills Respiratory: shortness of breath, SOB with exertion, SOB at rest. 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) Hx Heart Attack/AMI: No Hx Congestive Heart Failure: No Hx Diabetes: No Hx Renal Disease: Yes (M.W,F Hemodialysis) Hx Arthritis: Yes Hx Asthma: No Hx COPD: No Additional medical history: Hemodialysis Access Left Arm, GI Bleed - Surgical History Additional Surgical History: Left upper extremity dialysis access - Social History Smoking Status: Never Smoker Substance Use Type: None - Medications Home Medications: Home Medications Medication Instructions Recorded Confirmed Last Taken Type Furosemide [Lasix] 80 mg PO ONCE 02/16/17 02/16/17 Unknown History Lanthanum Carbonate [Fosrenol] 1,000 mg PO ONCE 02/16/17 02/16/17 Unknown History Lanthanum Carbonate [Fosrenol] 1,000 mg PO QDAY tab.chew 02/19/17 Unknown Rx Magnesium Hydroxide [Milk of 30 ml PO Q4H PRN oral.liqd 02/19/17 Unknown Rx Magnesia] NIFEdipine [Nifedipine ER] 60 mg PO ONCE #30 tab.er.24 02/19/17 Unknown Rx guaiFENesin DM [Guaifenesin Dm 20 ml PO Q4H PRN 15 Days oral.liqd 02/19/17 U nknown Rx Syrup] hydrALAZINE [Apresoline TAB] 100 mg PO Q8HR #30 tab 02/19/17 Unknown Rx oxyCODONE /ACETAMINOPHEN [Percocet 1 tab PO Q12H PRN #10 tablet 02/19/17 Unknown Rx 5/325 mg] Calamine/Zinc Oxide [Calamine 180 ml TP BID 30 Days lotion 02/21/17 Unknown Rx Lotion] valACYclovir [Valtrex] 500 mg PO QDAY 4 Days tablet 02/21/17 Unknown Rx ED Physical Exam - General Limitations: No Limitations General appearance: alert, in no apparent distress - Head Head exam: Present: atraumatic, normocephalic, normal inspection - Eye Eye exam: Present: normal appearance, PERRL - ENT ENT exam: Present: normal exam, normal orophraynx, mucous membranes moist - Neck Neck exam: Present: normal inspection, full ROM. Absent: tenderness, meningismus, lymphadenopathy, thyromegaly - Respiratory Respiratory exam: Present: normal lung sounds bilaterally - Cardiovascular Cardiovascular Exam: Present: regular rate, normal rhythm, normal heart sounds - GI/Abdominal GI/Abdominal exam: Present: soft, normal bowel sounds. Absent: distended, tenderness, guarding, rebound, rigid, mass, bruit, pulsatile mass, hernia - Extremities Exam Extremities exam: Present: tenderness, normal capillary refill, pedal edema, other (right leg swollen more than the left leg) - Neurological Exam Neurological exam: Present: alert, oriented X3, CN II-XII intact, normal gait, reflexes normal - Skin Skin exam: Present: warm, intact, normal color ED Course Vital Signs 07/12/18 10:46 Temperature 97.5 F L Pulse Rate 78 Respiratory 20 Rate Blood Pressure 162/63 O2 Sat by Pulse 96 Oximetry ED Medical Decision Making - Lab Data Result diagrams: 07/12/18 11:46 07/12/18 11:46 - EKG Data -: EKG Interpreted by Md EKG shows normal: sinus rhythm Rate: normal - EKG Data Interpretation: no acute changes - Radiology Data Radiology results: report reviewed Referring Physician: MADELIN GARCIA Patient Name: JOSEPH WRIGHT Date of : 1945 Sex: Male Report Date: 2018-07-12 Report Status: [place] [address] XRay Report Signed Patient: JOSEPH WRIGHT MR#: [id number] : 1945 Acct:[id number] Age/Sex: 73 / M ADM Date: 07/12/18 Loc: ED Attending Dr: Ordering Physician: MADELIN GARCIA MD Date of Service: 07/12/18 Procedure(s): XR chest routine 2V Accession Number(s): [id number] cc: MADELIN GARCIA MD Fluoro Time In Minutes: PROCEDURE: XR CHEST ROUTINE 2V TECHNIQUE: Chest, 2 views HISTORY: Chest Pain COMPARISON: 02/16/2017 FINDINGS: There is unchanged mild cardiomegaly. There is no convincing vascular congestion. There is some right basilar atelectasis versus infiltrate. There may be trace right pleural fluid. There is no pneumothorax seen. IMPRESSION: Right basilar atelectasis versus infiltrate and trace right pleural fluid. This document is electronically signed by Teresa Schwab MD., July 12 2018 12:35:20 PM ET Transcribed By: MELONIE Dictated By: TERESA SCHWAB MD Electronically Authenticated By: TERESA SCHWAB MD Signed Date/Time: 07/12/18 1237 DD/ 1135 TD/TT: 07/12/18 1136 - Medical Decision Making Patient is 73 years old male with history of end-stage renal disease on hemodialysis. Patient presented to the ER complaining of shortness of breath since yesterday. Patient also complaining of right lower extremity swelling. When I ask him about the swelling patient does not know when it is started but he think this is very recent. Patient denied any chest pain. Patient is compliant with his dialysis with last dialysis Friday. Patient denied any fever or chills. Patient EKG did not show ST elevation, troponin slightly increased but the repeat troponin is less that the first set. right leg doppler us is negative fo DVT. NM study is negative for PE. CXR with right LL infilterate, patient treated wit levaquin. I discussed the patient with Dr Walker, he agreed to admit to medical service. Critical care attestation.: If time is entered above; I have spent that time in minutes in the direct care of this critically ill patient, excluding procedure time. ED Disposition Clinical Impression: Shortness of breath, End stage renal disease, Pneumonia, Elevated troponin Disposition: OP ADMIT IP TO THIS HOSP Is pt being admited?: Yes Condition: Stable Instructions: Bacterial Pneumonia (ED) Referrals: PRIMARY CARE, [Primary Care Provider] - 3-5 Days
--- NOTE | 2018-07-12 15:28 | Vascular Lab Report ---
PROCEDURE: VL VENOUS DUPLEX LE RT HISTORY: RT LEG SWELLING FINDINGS: Real-time ultrasound of the right leg and left leg was performed using grayscale and color Doppler images. These images demonstrate no evidence of deep venous thrombus in the right or left common femoral vein , superficial femoral vein, popliteal vein or posterior tibial vein. IMPRESSION: No DVT in either leg This document is electronically signed by Balta Price MD., July 12 2018 03:26:12 PM ET
[2018-07-12] MEDS ORDERED: LEVAQUIN 500MG/100ML 500 MG/100 ML BAG IV ONE (16:11)
--- NOTE | 2018-07-12 16:15 | Nuclear Medicine Report ---
PROCEDURE: NM LUNG SCAN PERF/VENT HISTORY: SOB, RT LEG SWELLING FINDINGS: Ventilation perfusion scan was performed following the injection of 4.2 mCi technetium 99m labeled macroaggregated albumin and the inhalation of 10.6 mCi xenon-133. Straight than ventilation a nd perfusion appear within normal limits. No scintigraphic evidence of pulmonary thromboembolic disea se is seen. IMPRESSION: No scintigraphic evidence of pulmonary thromboembolic disease This document is electronically signed by Balta Price MD., July 12 2018 04:13:49 PM ET
--- NOTE | 2018-07-12 17:02 | History and Physical Report ---
History of Present Illness Chief complaint: I feel like i cant breathe History of present illness: 73 YO Male with ESRD on HD (M,W,F) last dialyzed on Friday, OA, CVA with RHP, HTN presents to ED for evaluation. Pt states that he has experienced shortness of breath over the past 1 day with persistent symptoms over the same time frame. Pt acknowledges productive cough of yellow sputum, and well as generalized weakness and malaise. Pt also acknowledges Right leg swelling. Pt transported to [facility] ED via private vehicle. Pt seen and evaluated in ED and found to have RLL Pneumonia as well as ESRD. Pt admitted to [facility]. Pt denies fever, chills, CP, palpitations, NVD, Trauma, BRBPR, Unintentional weight loss, night sweats. Prior admission on 02/16/17 reviewed. All listed medication reconciled at time of admission. Past History Past Medical History: arthritis, ESRD, hypertension, stroke Past Surgical History: Other (LUE Dialysis access) Social history: , lives with family. denies: smoking, alcohol abuse, prescription drug abuse Family history: hypertension Medications and Allergies Allergies Allergy/AdvReac Type Severity Reaction Status Date / Time No Known Allergies Allergy Verified 07/12/18 10:46 Home Medications Medication Instructions Recorded Confirmed Last Taken Type Furosemide [Lasix] 80 mg PO ONCE 02/16/17 02/16/17 Unknown History Lanthanum Carbonate [Fosrenol] 1,000 mg PO ONCE 02/16/17 02/16/17 Unknown History Lanthanum Carbonate [Fosrenol] 1,000 mg PO QDAY tab.chew 02/19/17 Unknown Rx Magnesium Hydroxide [Milk of 30 ml PO Q4H PRN oral.liqd 02/19/17 Unknown Rx Magnesia] NIFEdipine [Nifedipine ER] 60 mg PO ONCE #30 tab.er.24 02/19/17 Unknown Rx guaiFENesin DM [Guaifenesin Dm 20 ml PO Q4H PRN 15 Days oral.liqd 02/19/17 Unknown Rx Syrup] hydrALAZINE [Apresoline TAB] 100 mg PO Q8HR #30 tab 02/19/17 Unknown Rx oxyCODONE /ACETAMINOPHEN [Percocet 1 tab PO Q12H PRN #10 tablet 02/19/17 Unknown Rx 5/325 mg] Calamine/Zinc Oxide [Calamine 180 ml TP BID 30 Days lotion 02/21/17 Unknown Rx Lotion] valACYclovir [Valtrex] 500 mg PO QDAY 4 Days tablet 02/21/17 Unknown Rx Active Meds: Active Medications Levofloxacin/Dextrose (Levaquin 500mg/100ml) 500 mg in 100 mls @ 100 mls/hr IV ONCE ONE Stop: 07/12/18 17:10 Last Admin: 07/12/18 16:52 Dose: 100 mls/hr Documented by: Review of Systems Constitutional: weakness, malaise, no weight loss, no weight gain, no fever, no chills Ears, nose, mouth and throat: no ear pain, no ear discharge, no tinnitis, no decreased hearing, no nose pain, no nasal congestion Cardiovascular: no chest pain, no orthopnea, no palpitations, no rapid/irregular heart beat Respiratory: cough, cough with sputum, excessive sputum Gastrointestinal: no nausea, no vomiting, no diarrhea, no constipation, no change in bowel habits Genitourinary Male: no hematuria, no flank pain, no discharge, no urinary frequency, no urinary hesitancy Rectal: no pain, no incontinence, no bleeding Musculoskeletal: no neck stiffness, no neck pain, no shooting arm pain, no arm numbness/tingling, no low back pain, no shooting leg pain Integumentary: no rash, no pruritis, no redness, no sores, no wounds Neurological: no paralysis, no weakness, no parathesias, no numbness, no tingling, no seizures Psychiatric: no anxiety, no memory loss, no change in sleep habits, no sleep disturbances, no insomnia, no hypersomnia Endocrine: no cold intolerance, no heat intolerance, no polyphagia, no polydipsia Hematologic/Lymphatic: no easy bruising, no easy bleeding, no lymphadenopathy, no lymphedema Allergic/Immunologic: no urticaria, no allergic rhinitis, no persistent infections, no anaphylaxis Exam - Constitutional Vitals: Temp Pulse Resp BP Pulse Ox 97.5 F L 78 20 162/63 96 07/12/18 10:46 07/12/18 10:46 07/12/18 10:46 07/12/18 10:46 07/12/18 10:46 General appearance: Present: mild distress - EENT Eyes: Present: PERRL ENT: hearing intact, clear oral mucosa - Neck Neck: Present: supple, normal ROM - Respiratory Respiratory effort: normal Respiratory: bilateral: diminished, rhonchi - Cardiovascular Heart Sounds: Present: S1 & S2. Absent: rub, click - Extremities Extremities: pulses symmetrical, No edema Peripheral Pulses: within normal limits - Abdominal General gastrointestinal: Present: soft, non-tender, non-distended, normal bowel sounds Male genitourinary: Present: normal - Integumentary Integumentary: Present: clear, warm, dry - Musculoskeletal Musculoskeletal: gait normal, strength equal bilaterally - Psychiatric Psychiatric: appropriate mood/affect, intact judgment & insight - Neurologic Neurologic: CNII-XII intact, moves all extremities Results - Labs CBC & Chem 7: 07/12/18 11:46 07/12/18 11:46 Labs: Abnormal lab results 07/12/18 07/12/18 07/12/18 Range/Units 11:46 11:46 11:46 Hgb 9.8 L (11.8-15.2) gm/dl Hct 31.1 L (35.5-45.6) % MCV 64 L (84-94) fl MCH 20 L (28-32) pg MCHC 31 L (32-34) % RDW 20.3 H (13.2-15.2) % Seg Neuts % (Manual) 72.0 H (40.0-70.0) % Lymphocytes % (Manual) 10.0 L (13.4-35.0) % Monocytes % (Manual) 13.0 H (0.0-7.3) % Lymphocytes # (Manual) 0.7 L (1.2-5.4) K/mm3 Monocytes # (Manual) 0.9 H (0.0-0.8) K/mm3 APTT 39.6 H (24.2-36.6) Sec. Sodium 135 L (137-145) mmol/L Chloride 87.9 L (98-107) mmol/L BUN 44 H (9-20) mg/dL Creatinine 7.9 H (0.8-1.5) mg/dL Glucose 144 H (75-100) mg/dL Troponin T (0.00-0.029) ng/mL NT-Pro-B Natriuret Pep (0-900) pg/mL HDL Cholesterol (40-59) mg/dL 07/12/18 07/12/18 Range/Units 11:46 15:12 Hgb (11.8-15.2) gm/dl Hct (35.5-45.6) % MCV (84-94) fl MCH (28-32) pg MCHC (32-34) % RDW (13.2-15.2) % Seg Neuts % (Manual) (40.0-70.0) % Lymphocytes % (Manual) (13.4-35.0) % Monocytes % (Manual) (0.0-7.3) % Lymphocytes # (Manual) (1.2-5.4) K/mm3 Monocytes # (Manual) (0.0-0.8) K/mm3 APTT (24.2-36.6) Sec. Sodium (137-145) mmol/L Chloride (98-107) mmol/L BUN (9-20) mg/dL Creatinine (0.8-1.5) mg/dL Glucose (75-100) mg/dL Troponin T 0.118 H* 0.117 H* (0.00-0.029) ng/mL NT-Pro-B Natriuret Pep > 30791 H (0-900) pg/mL HDL Cholesterol 98 H (40-59) mg/dL Assessment and Plan - Patient Problems (1) End stage renal disease Current Visit: Yes Status: Acute Plan to address problem: Nephrology consulted in ED, dialysis as per renal team, strict I/O, daily weight, monitor uop q shift, avoid nephrotoxic agents. (2) Pneumonia Current Visit: Yes Status: Acute Qualifiers: Laterality: right Lung location: lower lobe of lung Plan to address problem: Pneumonia Protocol: IV antibiotics, blood cultures, chest x ray, supplemental oxygen, nebulizer therapy, pulse oximetry, NIPPV as clinically indicated. (3) HTN (hypertension) Current Visit: Yes Status: Acute Qualifiers: Hypertension type: essential hypertension Qualified Code(s): I10 - Essential (primary) hypertension Plan to address problem: Monitor BP q shift, continue medical management. (4) Osteoarthritis Current Visit: Yes Status: Acute Plan to address problem: pain control, supportive care. avoid NSAID therapy, Tylenol PRN (5) DVT prophylaxis Current Visit: Yes Status: Acute Plan to address problem: SCD to BLE while in bed, prophylactic heparin
[2018-07-12] MEDS ORDERED: TYLENOL PO PRN (17:06)
[2018-07-12] MEDS ORDERED: SODIUM CHLORIDE FLUSH SYRINGE 10 ML IV PRN (17:06)
[2018-07-12] MEDS ORDERED: PROVENTIL IH PRN (17:06)
[2018-07-12] MEDS ORDERED: ZOFRAN IV PRN (17:06)
[2018-07-12] MEDS ORDERED: PERCOCET 5/325 PO PRN (17:07)
[2018-07-12] MEDS ORDERED: MILK OF MAGNESIA PO PRN (17:07)
[2018-07-12] MEDS ORDERED: FOSRENOL PO ONE (17:15)
[2018-07-12] MEDS ORDERED: LANTHANUM CARBONATE 1000 MG PO SCH (17:15)
[2018-07-12] MEDS ORDERED: PROCARDIA XL PO SCH (18:00)
[2018-07-12] MEDS: HEPARIN SUB-Q SCH (22:41)
[2018-07-12] MEDS: CALAMINE TP SCH (22:43)
[2018-07-12] MEDS: SODIUM CHLORIDE FLUSH SYRINGE 10 ML IV SCH (22:43)
[2018-07-12] MEDS: APRESOLINE PO SCH (22:44)
[2018-07-13] MEDS: APRESOLINE PO SCH ×3 (05:36→21:01)
[2018-07-13] MEDS ORDERED: APRESOLINE IV ONE (06:41)
[2018-07-13] MEDS ORDERED: LASIX IV ONE ×2 (07:07→07:30)
[2018-07-13 07:29] LABS: Calcium 9.5 mg/dL (8.4-10.2)
[2018-07-13 08:03] LABS: Hematocrit 33.4 % (35.5-45.6); Hemoglobin 10.6 gm/dl (11.8-15.2); Mean Corpuscular HGB Conc 32 % (32-34); Platelet Count 298 K/mm3 (140-440); Red Blood Count 5.16 M/mm3 (3.65-5.03)
[2018-07-13 08:09] LABS: Mean Corpuscular Volume 65 fl (84-94); Red Cell Distribution Width 20.5 % (13.2-15.2)
[2018-07-13] MEDS: DUONEB *Not for PRN Use IH SCH ×3 (08:14→21:12)
[2018-07-13] MEDS ORDERED: NACL 0.9% 100 ML IV PRN (08:22)
[2018-07-13] MEDS: FOSRENOL PO SCH (09:23)
[2018-07-13] MEDS: CALAMINE TP SCH ×2 (09:23→21:05)
[2018-07-13] MEDS: SODIUM CHLORIDE FLUSH SYRINGE 10 ML IV SCH ×2 (09:25→21:02)
[2018-07-13] MEDS: HEPARIN SUB-Q SCH ×2 (09:28→21:02)
--- NOTE | 2018-07-13 10:31 | Consultation ---
History of Present Illness - Reason for Consult Consult date: 07/13/18 end stage renal disease Requesting physician: ANNABELLE RAMSEY - History of Present Illness This is a 73 yo Male with history of hypertension, ESRD on HD (M,W,F), OA, CVA, who presents to ED with complaints of shortness of breath over 2days [employer], associated with productive cough, chills, generalized weakness and malaise. CXT showed evidence of RLL infiltrate consistent with Pneumonia. V/Q scan was negative for pulmonary emboli, lower ext duplex showed no evidence of DVT. Pt denies recent travel, sick contacts, denies CP, palpitations, dysuria, abd pain, diarrhea, rash. Renal consult was requested for management of ESRD/HD. Past History Past Medical History: arthritis, ESRD, hypertension, stroke Past Surgical History: Other (LUE Dialysis access) Social history: , lives with family. denies: smoking, alcohol abuse, prescription drug abuse Family history: hypertension Medications and Allergies Allergies Allergy/AdvReac Type Severity Reaction Status Date / Time No Known Allergies Allergy Verified 07/12/18 10:46 Home Medications Medication Instructions Recorded Confirmed Last Taken Type Furosemide [Lasix] 80 mg PO BID 02/16/17 07/12/18 07/12/18 History Lanthanum Carbonate [Fosrenol] 1,000 mg PO QDAY tab.chew 02/19/17 07/12/18 07/12/18 Rx hydrALAZINE [Apresoline TAB] 100 mg PO Q8HR #30 tab 02/19/17 07/12/18 07/12/18 Rx Calamine/Zinc Oxide [Calamine 180 ml TP BID 30 Days lotion 02/21/17 07/12/18 07/12/18 Rx Lotion] NIFEdipine [Nifedipine ER] 1 tab PO QDAY 07/12/18 07/12/18 07/12/18 History Vit B Comp No.3/Folic/C/Biotin 1 tab PO QDAY 07/12/18 07/12/18 07/12/18 History [[facility] Rx Tablet] Active Meds: Active Medications Acetaminophen (Tylenol) 650 mg PO Q4H PRN PRN Reason: Pain MILD(1-3)/Fever >100.5/EVANS Albuterol (Proventil) 2.5 mg IH Q4HRT PRN PRN Reason: Shortness Of Breath Last Admin: 07/13/18 06:35 Dose: 2.5 mg Documented by: Albuterol/Ipratropium (Duoneb *Not For Prn Use*) 1 ampul IH Q6HRT [facility] Last Admin: 07/13/18 08:14 Dose: 1 ampul Documented by: Calamine (Calamine) 1 applic TP BID [facility] Last Admin: 07/13/18 09:23 Dose: 1 applic Documented by: Furosemide (Lasix) 40 mg IV 0600,1800 [facility] Guaifenesin (Guaifenesin Dm Syrup) 20 ml PO Q4H PRN PRN Reason: Cough Heparin Sodium (Porcine) (Heparin) 5,000 unit SUB-Q Q12HR [facility] Last Admin: 07/13/18 09:28 Dose: 5,000 unit Documented by: Hydralazine HCl (Apresoline) 100 mg PO Q8HR [facility] Last Admin: 07/13/18 05:36 Dose: 100 mg Documented by: Levofloxacin/Dextrose (Levaquin 500mg/100ml) 500 mg in 100 mls @ 100 mls/hr IV Q48HR [facility] Sodium Chloride (Nacl 0.9%) 100 mls @ 999 mls/hr IV AL PRN PRN Reason: Hypotension Lanthanum Carbonate (Fosrenol) 1,000 mg PO QDAY [facility] Last Admin: 07/13/18 09:23 Dose: 1,000 mg Documented by: Magnesium Hydroxide (Milk Of Magnesia) 30 ml PO Q4H PRN PRN Reason: Constipation Nifedipine (Procardia Xl) 60 mg PO ONCE [facility] Last Admin: 07/13/18 03:28 Dose: 60 mg Documented by: Ondansetron HCl (Zofran) 4 mg IV Q8H PRN PRN Reason: Nausea And Vomiting Oxycodone/Acetaminophen (Percocet 5/325) 1 tab PO Q12H PRN PRN Reason: Pain, Moderate (4-6) Sodium Chloride (Sodium Chloride Flush Syringe 10 Ml) 10 ml IV BID [facility] Last Admin: 07/13/18 09:25 Dose: 10 ml Documented by: Sodium Chloride (Sodium Chloride Flush Syringe 10 Ml) 10 ml IV PRN PRN PRN Reason: LINE FLUSH Valacyclovir HCl (Valtrex) 500 mg PO QPM [facility] Review of Systems All systems: negative Constitutional: chills, fatigue, weakness, malaise Cardiovascular: shortness of breath, dyspnea on exertion Respiratory: cough with sputum Exam - Vital Signs Vital signs: Vital Signs Temp Pulse Resp BP Pulse Ox 97.5 F L 78 20 162/63 96 07/12/18 10:46 07/12/18 10:46 07/12/18 10:46 07/12/18 10:46 07/12/18 10:46 - General Appearance General appearance: well-developed, well-nourished, appears stated age EENT: ATNC, PERRL, mucous membranes moist Neck: Present: neck supple Respiratory: Decreased Breath Sounds, Productive Cough Heart: regular, S1S2 Gastrointestinal: Present: normoactive bowel sounds Integumentary: no rash, other (no edema ) Neurologic: no focal deficit, alert and oriented x3, strength 5/5, CN 3-12 intact Psychiatric: mood/affect appropriate, cooperative Results - Lab Results 07/13/18 06:57 07/13/18 06:53 Most recent lab results Calcium 9.5 mg/dL (8.4-10.2) 07/13/18 06:53 Assessment and Plan - Patient Problems (1) Pneumonia Current Visit: Yes Status: Acute Qualifiers: Laterality: right Lung location: lower lobe of lung Plan to address problem: cont ABXs treatment with levaquin, dose med for HD (2) End stage renal disease Current Visit: Yes Status: Acute Plan to address problem: cont HD on MWF schedule. target UF 2-3L as tolerated (3) Anemia in chronic illness Current Visit: No Status: Acute Plan to address problem: Hb at target, no need for further EPO at present (4) Hypertensive chronic kidney disease with stage 5 chronic kidney disease or end stage renal disease Current Visit: No Status: Acute Plan to address problem: resume home BP meds. will increase UF as tolerated for further BP/volume control
[2018-07-13 14:13] LABS: Anisocytosis 1+; Hypochromasia 2+; Large Platelets Rare; Platelet Estimate Consistent w Auto; Total Cells Counted 100
--- NOTE | 2018-07-13 14:37 | Progress Note ---
Assessment and Plan Assessment and plan: 73 YO Male with ESRD on HD (M,W,F) last dialyzed on Friday, OA, CVA with RHP, HTN presents to ED for evaluation. Pt states that he has experienced shortness of breath over the past 1 day with persistent symptoms over the same time frame. Pt acknowledges productive cough of yellow sputum, and well as generalized weakness and malaise. Pt also acknowledges Right leg swelling. Pt transported to [facility] ED via private vehicle. Pt seen and evaluated in ED and found to have RLL Pneumonia as well as ESRD. Pt admitted to [facility]. Pt denies fever, chills, CP, palpitations, NVD, Trauma, BRBPR, Unintentional weight loss, night sweats. Prior admission on 02/16/17 reviewed. All listed medication reconciled at time of admission. Lower extremity Doppler: IMPRESSION: No DVT in either leg VQ scan : IMPRESSION: No scintigraphic evidence of pulmonary thromboembolic disease Chest x-ray: IMPRESSION: Right basilar atelectasis versus infiltrate and trace right pleural fluid. Acute Hypoxic respiratory failure secondary to volume overload- saturation 78% on room air per nursings staff Anxiety disorder, likely secondary to respiratory failure End-stage renal disease Right basilar infiltrate possible pneumonia No evidence of sepsis Hypertension with urgency Type 2 DE Osteoarthritis Anemia of chronic renal disease Plan Continue supportive care Discontinue Valtrex, patient was treated in 2017 and not currently on Optimize BP control. Continue IV lasix, patient on 80mg po BID at home and still makes urine Continue IV anbx Awaiting for Dialysis Strict I/O NIPPV if needed Cardiology consult although doubt cardiac etiology but patient complaint with di alysis and now with exertional dyspnea Nephrology input noted DVT/GI Prophy Plan of care discussed with patient, family and rounds done with nursing staff History Interval history: Patient seen and examined this morning was noted to be anxious this morning with elevated blood pressure and some shortness of breath on exertion. This seems to be improving slowly on my exam. Family member at bedside. No other complaints no complaints of chest pain nausea vomiting or diarrhea. Hospitalist Physical - Physical exam Narrative exam: VITAL SIGNS: Reviewed. GENERAL: The patient appeared well nourished and normally developed, Vital signs as documented. HEAD: No signs of head trauma. EYES: Pupils are equal. Extraocular motions intact. EARS: Hearing grossly intact. MOUTH: Oropharynx is normal. NECK: No adenopathy, no JVD. CHEST: Chest with diminished breath sounds bilaterally. No wheezes, rales, or rhonchi. CARDIAC: Regular rate and rhythm. S1 and S2, without murmurs, gallops, or rubs. VASCULAR: No Edema. Peripheral pulses normal and equal in all extremities. ABDOMEN: Soft, non tender and non distended. No rebound or guarding, and no masses palpated. Bowel Sounds normal. MUSCULOSKELETAL: Good range of motion of all major joints. Extremities without clubbing, cyanosis or edema. NEUROLOGIC EXAM: Alert and oriented x 3 No focal sensory or strength deficits. Speech normal. Follows commands. PSYCHIATRIC: Mood normal. SKIN: Excoriated lesion on the nose. Left nares. G - Constitutional Vitals: Temp Pulse Resp BP Pulse Ox 98.1 F 81 20 230/106 96 07/13/18 02:55 07/13/18 14:30 07/13/18 14:30 07/13/18 07:29 07/13/18 14:29 General appearance: Present: mild distress Results - Labs CBC & Chem 7: 07/13/18 06:57 07/13/18 06:53 Labs: Laboratory Last Values WBC 11.8 K/mm3 (4.5-11.0) H 07/13/18 06:57 RBC 5.16 M/mm3 (3.65-5.03) H 07/13/18 06:57 Hgb 10.6 gm/dl (11.8-15.2) L 07/13/18 06:57 Hct 33.4 % (35.5-45.6) L 07/13/18 06:57 MCV 65 fl (84-94) L 07/13/18 06:57 MCH 21 pg (28-32) L 07/13/18 06:57 MCHC 32 % (32-34) 07/13/18 06:57 RDW 20.5 % (13.2-15.2) H 07/13/18 06:57 Plt Count 298 K/mm3 (140-440) 07/13/18 06:57 Lymph % (Auto) Drafter Detail 07/12/18 11:46 [place] % (Auto) Drafter Detail 07/12/18 11:46 Eos % (Auto) Drafter Detail 07/12/18 11:46 Baso % (Auto) Drafter Detail 07/13/18 06:57 Lymph # Drafter Detail 07/12/18 11:46 [place] # Drafter Detail 07/12/18 11:46 Eos # Drafter Detail 07/12/18 11:46 Baso # Drafter Detail 07/12/18 11:46 Add Manual Diff Complete 07/13/18 06:57 Total Counted 100 07/13/18 06:57 Seg Neutrophils % Drafter Detail 07/12/18 11:46 Seg Neuts % (Manual) 60.0 % (40.0-70.0) 07/13/18 06:57 Band Neutrophils % 0 % 07/13/18 06:57 Lymphocytes % (Manual) 25.0 % (13.4-35.0) 07/13/18 06:57 Reactive Lymphs % (Man) 0 % 07/13/18 06:57 Monocytes % (Manual) 9.0 % (0.0-7.3) H 07/13/18 06:57 Eosinophils % (Manual) 4.0 % (0.0-4.3) 07/13/18 06:57 Basophils % (Manual) 2.0 % (0.0-1.8) H 07/13/18 06:57 Metamyelocytes % 0 % 07/13/18 06:57 Myelocytes % 0 % 07/13/18 06:57 Promyelocytes % 0 % 07/13/18 06:57 Blast Cells % 0 % 07/13/18 06:57 Nucleated RBC % Not Reportable 07/13/18 06:57 Seg Neutrophils # Drafter Detail 07/12/18 11:46 Seg Neutrophils # Man 7.1 K/mm3 (1.8-7.7) 07/13/18 06:57 Band Neutrophils # 0.0 K/mm3 07/13/18 06:57 Lymphocytes # (Manual) 3.0 K/mm3 (1.2-5.4) 07/13/18 06:57 Abs React Lymphs (Man) 0.0 K/mm3 07/13/18 06:57 Monocytes # (Manual) 1.1 K/mm3 (0.0-0.8) H 07/13/18 06:57 Eosinophils # (Manual) 0.5 K/mm3 (0.0-0.4) H 07/13/18 06:57 Basophils # (Manual) 0.2 K/mm3 (0.0-0.1) H 07/13/18 06:57 Metamyelocytes # 0.0 K/mm3 07/13/18 06:57 Myelocytes # 0.0 K/mm3 07/13/18 06:57 Promyelocytes # 0.0 K/mm3 07/13/18 06:57 Blast Cells # 0.0 K/mm3 07/13/18 06:57 WBC Morphology Not Reportable 07/13/18 06:57 Hypersegmented Neuts Not Reportable 07/13/18 06:57 Hyposegmented Neuts Not Reportable 07/13/18 06:57 Hypogranular Neuts Not Reportable 07/13/18 06:57 Smudge Cells Not Reportable 07/13/18 06:57 Toxic Granulation Not Reportable 07/13/18 06:57 Toxic Vacuolation Not Reportable 07/13/18 06:57 Dohle Bodies Not Reportable 07/13/18 06:57 Pelger-Huet Anomaly Not Reportable 07/13/18 06:57 Amarjit Rods Not Reportable 07/13/18 06:57 Platelet Estimate Consistent w auto 07/13/18 06:57 Clumped Platelets Not Reportable 07/13/18 06:57 Plt Clumps, EDTA Not Reportable 07/13/18 06:57 Large Platelets Rare 07/13/18 06:57 Giant Platelets Not Reportable 07/13/18 06:57 Platelet Satelliting Not Reportable 07/13/18 06:57 Plt Morphology Comment Not Reportable 07/13/18 06:57 RBC Morphology Not Reportable 07/13/18 06:57 Dimorphic RBCs Not Reportable 07/13/18 06:57 Polychromasia Not Reportable 07/13/18 06:57 Hypochromasia 2+ 07/13/18 06:57 Poikilocytosis Not Reportable 07/13/18 06:57 Anisocytosis 1+ 07/13/18 06:57 Microcytosis 1+ 07/13/18 06:57 Macrocytosis Not Reportable 07/13/18 06:57 Spherocytes Not Reportable 07/13/18 06:57 Pappenheimer Bodies Not Reportable 07/13/18 06:57 Sickle Cells Not Reportable 07/13/18 06:57 Target Cells Not Reportable 07/13/18 06:57 Tear Drop Cells Not Reportable 07/13/18 06:57 Ovalocytes Not Reportable 07/13/18 06:57 Helmet Cells Not Reportable 07/13/18 06:57 [place] Bodies Not Reportable 07/13/18 06:57 [place] Rings Not Reportable 07/13/18 06:57 [place] Cells Not Reportable 07/13/18 06:57 Bite Cells Not Reportable 07/13/18 06:57 Crenated Cell Not Reportable 07/13/18 06:57 Elliptocytes Not Reportable 07/13/18 06:57 Acanthocytes (Spur) Not Reportable 07/13/18 06:57 Rouleaux Not Reportable 07/13/18 06:57 Hemoglobin C Crystals Not Reportable 07/13/18 06:57 Schistocytes Not Reportable 07/13/18 06:57 Malaria parasites Not Reportable 07/13/18 06:57 [place] Bodies Not Reportable 07/13/18 06:57 Hem Pathologist Commnt No 07/13/18 06:57 PT 12.8 Sec. (12.2-14.9) 07/12/18 11:46 INR 0.91 (0.87-1.13) 07/12/18 11:46 APTT 39.6 Sec. (24.2-36.6) H 07/12/18 11:46 Sodium 134 mmol/L (137-145) L 07/13/18 06:53 Potassium 4.6 mmol/L (3.6-5.0) 07/13/18 06:53 Chloride 89.8 mmol/L (98-107) L 07/13/18 06:53 Carbon Dioxide 24 mmol/L (22-30) 07/13/18 06:53 Anion Gap 25 mmol/L 07/13/18 06:53 BUN 49 mg/dL (9-20) H 07/13/18 06:53 Creatinine 8.9 mg/dL (0.8-1.5) H 07/13/18 06:53 Estimated GFR 6 ml/min 07/13/18 06:53 BUN/Creatinine Ratio 6 % 07/13/18 06:53 Glucose 144 mg/dL (75-100) H 07/13/18 06:53 Calcium 9.5 mg/dL (8.4-10.2) 07/13/18 06:53 Total Bilirubin 0.50 mg/dL (0.1-1.2) 07/12/18 11:46 AST 20 units/L (5-40) 07/12/18 11:46 ALT 10 units/L (7-56) 07/12/18 11:46 Alkaline Phosphatase 98 units/L (35-129) 07/12/18 11:46 Total Creatine Kinase 94 units/L (55-170) 07/12/18 11:46 CK-MB (CK-2) 2.8 ng/mL (0.0-4.0) 07/12/18 11:46 CK-MB (CK-2) Rel Index 2.9 (0-4) 07/12/18 11:46 Troponin T 0.115 ng/mL (0.00-0.029) H* 07/12/18 17:28 NT-Pro-B Natriuret Pep > 75674 pg/mL (0-900) H 07/12/18 11:46 Total Protein 7.7 g/dL (6.3-8.2) 07/12/18 11:46 Albumin 4.7 g/dL (3.9-5) 07/12/18 11:46 Albumin/Globulin Ratio 1.6 % 07/12/18 11:46 Triglycerides 65 mg/dL (2-149) 07/12/18 11:46 Cholesterol 186 mg/dL (50-199) 07/12/18 11:46 LDL Cholesterol Direct 86 mg/dL (50-130) 07/12/18 11:46 HDL Cholesterol 98 mg/dL (40-59) H 07/12/18 11:46 Cholesterol/HDL Ratio 1.89 % 07/12/18 11:46 Active Medications - Current Medications Current Medications: Generic Name Dose Route Start Last Admin Trade Name Freq PRN Reason Stop Dose Admin Acetaminophen 650 mg 07/12/18 17:06 Tylenol PO Q4H PRN Pain MILD(1-3)/Fever >100.5/EVANS Albuterol 2.5 mg 07/12/18 17:06 07/13/18 06:35 Proventil IH 2.5 mg Q4HRT PRN Administration Shortness Of Breath Albuterol/Ipratropium 1 ampul 07/13/18 08:00 07/13/18 14:12 Duoneb *Not For Prn Use* IH 1 ampul Q6HRT KHAI Administration Amlodipine Besylate 10 mg 07/13/18 16:00 Norvasc PO QDAY KHAI Calamine 1 applic 07/12/18 22:00 07/13/18 09:23 Calamine TP 1 applic BID KHAI Administration Furosemide 40 mg 07/13/18 18:00 Lasix IV 0600,1800 KHAI Guaifenesin 20 ml 07/12/18 17:07 Guaifenesin Dm Syrup PO Q4H PRN Cough Heparin Sodium (Porcine) 5,000 unit 07/12/18 22:00 07/13/18 09:28 Heparin SUB-Q 5,000 unit Q12HR [facility] Administration Hydralazine HCl 100 mg 07/12/18 22:00 07/13/18 13:41 Apresoline PO 100 mg Q8HR [facility] Administration Levofloxacin/Dextrose 500 mg in 100 mls @ 100 mls/hr 07/14/18 10:00 Levaquin 500mg/100ml IV Q48HR [facility] Sodium Chloride 100 mls @ 999 mls/hr 07/13/18 08:22 Nacl 0.9% IV AL PRN Hypotension Lanthanum Carbonate 1,000 mg 07/13/18 10:00 07/13/18 09:23 Fosrenol PO 1,000 mg QDAY [facility] Administration Magnesium Hydroxide 30 ml 07/12/18 17:07 Milk Of Magnesia PO Q4H PRN Constipation Nifedipine 60 mg 07/12/18 18:00 07/13/18 03:28 Procardia Xl PO 60 mg ONCE KHAI Administration Ondansetron HCl 4 mg 07/12/18 17:06 Zofran IV Q8H PRN Nausea And Vomiting Oxycodone/Acetaminophen 1 tab 07/12/18 17:07 Percocet 5/325 PO Q12H PRN Pain, Moderate (4-6) Sodium Chloride 10 ml 07/12/18 22:00 07/13/18 09:25 Sodium Chloride Flush Syringe 10 Ml IV 10 ml BID KHAI Administration Sodium Chloride 10 ml 07/12/18 17:06 Sodium Chloride Flush Syringe 10 Ml IV PRN PRN LINE FLUSH Valacyclovir HCl 500 mg 07/13/18 18:00 Valtrex PO QPM [facility]
[2018-07-13] MEDS: NORVASC PO SCH ×2 (17:38→17:53)
[2018-07-13] MEDS: LASIX IV SCH (17:39)
[2018-07-13] MEDS ORDERED: VALTREX PO SCH (18:00)
[2018-07-14] MEDS: APRESOLINE PO SCH ×3 (05:54→22:36)
[2018-07-14] MEDS: LASIX IV SCH ×2 (05:54→17:23)
[2018-07-14 07:45] LABS: Hematocrit 30.4 % (35.5-45.6); Hemoglobin 9.7 gm/dl (11.8-15.2); Mean Corpuscular HGB Conc 32 % (32-34); Platelet Count 225 K/mm3 (140-440); Red Blood Count 4.66 M/mm3 (3.65-5.03)
[2018-07-14 07:46] LABS: Mean Corpuscular Volume 65 fl (84-94); Red Cell Distribution Width 20.6 % (13.2-15.2)
[2018-07-14 08:13] LABS: Calcium 9.8 mg/dL (8.4-10.2)
[2018-07-14] MEDS: HEPARIN SUB-Q SCH ×2 (09:45→22:36)
[2018-07-14] MEDS: FOSRENOL PO SCH (09:45)
[2018-07-14] MEDS: NORVASC PO SCH (09:45)
[2018-07-14] MEDS: SODIUM CHLORIDE FLUSH SYRINGE 10 ML IV SCH ×2 (09:45→22:41)
[2018-07-14] MEDS: CALAMINE TP SCH ×2 (09:46→22:40)
[2018-07-14] MEDS ORDERED: LEVAQUIN 500MG/100ML 500 MG/100 ML BAG IV SCH (10:00)
--- NOTE | 2018-07-14 10:36 | Progress Note ---
Assessment and Plan - Patient Problems (1) Pneumonia Current Visit: Yes Status: Acute Qualifiers: Laterality: right Lung location: lower lobe of lung Plan to address problem: cont ABXs treatment with levaquin, dose med for HD (2) End stage renal disease Current Visit: Yes Status: Acute Plan to address problem: cont HD on MWF schedule. target UF 2-3L as tolerated (3) Anemia in chronic illness Current Visit: No Status: Acute Plan to address problem: Hb at target, no need for further EPO at present (4) Hypertensive chronic kidney disease with stage 5 chronic kidney disease or end stage renal disease Current Visit: No Status: Acute Plan to address problem: resume home BP meds. will increase UF as tolerated for further BP/volume control Subjective Date of service: 07/14/18 Principal diagnosis: ESRD Interval history: Pt awake, alert, in NAD Objective - Vital Signs Vital signs: Vital Signs - 12hr 07/14/18 07/14/18 07/14/18 02:07 02:42 07:42 Temperature 98.2 F 98.5 F Pulse Rate 75 77 73 Respiratory 18 20 Rate Blood Pressure 163/68 159/72 O2 Sat by Pulse 94 93 Oximetry 07/14/18 07:47 Temperature Pulse Rate Respiratory Rate Blood Pressure O2 Sat by Pulse 95 Oximetry - General Appearance General appearance: well-developed, well-nourished, appears stated age EENT: ATNC, PERRL, mucous membranes moist Neck: no JVD Respiratory: Present: Clear to Ascultation Cardiology: regular, S1S2 Gastrointestinal: normoactive bowel sounds Integumentary: no rash, other (no edema ) Neurologic: no focal deficit, alert and oriented x3, strength 5/5, CN 3-12 intact Psychiatric: mood/affect appropriate, cooperative - Lab 07/14/18 07:08 07/14/18 07:08 Most recent lab results Calcium 9.8 mg/dL (8.4-10.2) 07/14/18 07:08 Medications & Allergies - Medications Allergies/Adverse Reactions: Allergies No Known Allergies Allergy (Verified 07/12/18 10:46) Home Medications: Home Medications Medication Instructions Recorded Confirmed Last Taken Type Furosemide [Lasix] 80 mg PO BID 02/16/17 07/12/18 07/12/18 History Lanthanum Carbonate [Fosrenol] 1,000 mg PO QDAY tab.chew 02/19/17 07/12/18 04/2 04/11 Rx hydrALAZINE [Apresoline TAB] 100 mg PO Q8HR #30 tab 02/19/17 07/12/18 07/12/18 Rx Calamine/Zinc Oxide [Calamine 180 ml TP BID 30 Days lotion 02/21/17 07/12/18 07/12/18 Rx Lotion] NIFEdipine [Nifedipine ER] 1 tab PO QDAY 07/12/18 07/12/18 07/12/18 History Vit B Comp No.3/Folic/C/Biotin 1 tab PO QDAY 07/12/18 07/12/18 07/12/18 History [[facility] Rx Tablet] Active Medications: Generic Name Dose Route Start Last Admin Trade Name Freq PRN Reason Stop Dose Admin Acetaminophen 650 mg 07/12/18 17:06 Tylenol PO Q4H PRN Pain MILD(1-3)/Fever >100.5/EVANS Albuterol 2.5 mg 07/12/18 17:06 07/13/18 06:35 Proventil IH 2.5 mg Q4HRT PRN Administration Shortness Of Breath Amlodipine Besylate 10 mg 07/13/18 16:00 07/14/18 09:45 Norvasc PO 10 mg QDAY KHAI Administration Calamine 1 applic 07/12/18 22:00 07/14/18 09:46 Calamine TP 1 applic BID KHAI Administration Furosemide 40 mg 07/13/18 18:00 07/14/18 05:54 Lasix IV 40 mg 0600,1800 KHAI Administration Guaifenesin 20 ml 07/12/18 17:07 07/14/18 05:58 Guaifenesin Dm Syrup PO 20 ml Q4H PRN Administration Cough Heparin Sodium (Porcine) 5,000 unit 07/12/18 22:00 07/14/18 09:45 Heparin SUB-Q 5,000 unit Q12HR KHAI Administration Hydralazine HCl 100 mg 07/12/18 22:00 07/14/18 05:54 Apresoline PO 100 mg Q8HR KHAI Administration Levofloxacin/Dextrose 500 mg in 100 mls @ 100 mls/hr 07/14/18 10:00 07/14/18 09:44 Levaquin 500mg/100ml IV 100 mls/hr Q48HR KHAI Administration Sodium Chloride 100 mls @ 999 mls/hr 07/13/18 08:22 Nacl 0.9% IV AL PRN Hypotension Lanthanum Carbonate 1,000 mg 07/13/18 10:00 07/14/18 09:45 Fosrenol PO 1,000 mg QDAY KHAI Administration Magnesium Hydroxide 30 ml 07/12/18 17:07 Milk Of Magnesia PO Q4H PRN Constipation Nifedipine 60 mg 07/12/18 18:00 07/13/18 03:28 Procardia Xl PO 60 mg ONCE KHAI Administration Ondansetron HCl 4 mg 07/12/18 17:06 Zofran IV Q8H PRN Nausea And Vomiting Oxycodone/Acetaminophen 1 tab 07/12/18 17:07 Percocet 5/325 PO Q12H PRN Pain, Moderate (4-6) Sodium Chloride 10 ml 07/12/18 22:00 07/14/18 09:45 Sodium Chloride Flush Syringe 10 Ml IV 10 ml BID KHAI Administration Sodium Chloride 10 ml 07/12/18 17:06 07/14/18 05:55 Sodium Chloride Flush Syringe 10 Ml IV 10 ml PRN PRN Administration LINE FLUSH
--- NOTE | 2018-07-14 10:42 | Consultation ---
History of Present Illness Consult date: 07/14/18 Consult reason: shortness of breath History of present illness: Patient is a 73 year old male with a history of chronic hypertension and end stage renal disease on dialysis. He presented with complaints of shortness of breath thus this cardiac consultation. Patient denies any missed dialysis days. He does not have any chest pain or palpitations. A chest x-ray done is suggestive of pneumonia. V/Q scan was negative for pulmonary emboli and there is no evidence of DVT by lower extremity duplex. 12 lead ECG is sinus rhythm, LVH with repolarization abnormalities. Past History Past Medical History: hypertension Past Surgical History: Other (LUE Dialysis access) Social history: , lives with family. denies: smoking, alcohol abuse, prescription drug abuse Family history: hypertension Medications and Allergies Allergies Allergy/AdvReac Type Severity Reaction Status Date / Time No Known Allergies Allergy Verified 07/12/18 10:46 Home Medications Medication Instructions Recorded Confirmed Last Taken Type Furosemide [Lasix] 80 mg PO BID 02/16/17 07/12/18 07/12/18 History Lanthanum Carbonate [Fosrenol] 1,000 mg PO QDAY tab.chew 02/19/17 07/12/18 07/12/18 Rx hydrALAZINE [Apresoline TAB] 100 mg PO Q8HR #30 tab 02/19/17 07/12/18 07/12/18 Rx Calamine/Zinc Oxide [Calamine 180 ml TP BID 30 Days lotion 02/21/17 07/12/18 07/12/18 Rx Lotion] NIFEdipine [Nifedipine ER] 1 tab PO QDAY 07/12/18 07/12/18 07/12/18 History Vit B Comp No.3/Folic/C/Biotin 1 tab PO QDAY 07/12/18 07/12/18 07/12/18 History [[place] Rx Tablet] Active Meds: Active Medications Acetaminophen (Tylenol) 650 mg PO Q4H PRN PRN Reason: Pain MILD(1-3)/Fever >100.5/EVANS Albuterol (Proventil) 2.5 mg IH Q4HRT PRN PRN Reason: Shortness Of Breath Last Admin: 07/13/18 06:35 Dose: 2.5 mg Documented by: Amlodipine Besylate (Norvasc) 10 mg PO QDAY [facility] Last Admin: 07/14/18 09:45 Dose: 10 mg Documented by: Calamine (Calamine) 1 applic TP BID [facility] Last Admin: 07/14/18 09:46 Dose: 1 applic Documented by: Furosemide (Lasix) 40 mg IV 0600,1800 [facility] Last Admin: 07/14/18 05:54 Dose: 40 mg Documented by: Guaifenesin (Guaifenesin Dm Syrup) 20 ml PO Q4H PRN PRN Reason: Cough Last Admin: 07/14/18 05:58 Dose: 20 ml Documented by: Heparin Sodium (Porcine) (Heparin) 5,000 unit SUB-Q Q12HR [facility] Last Admin: 07/14/18 09:45 Dose: 5,000 unit Documented by: Hydralazine HCl (Apresoline) 100 mg PO Q8HR [facility] Last Admin: 07/14/18 05:54 Dose: 100 mg Documented by: Levofloxacin/Dextrose (Levaquin 500mg/100ml) 500 mg in 100 mls @ 100 mls/hr IV Q48HR [facility] Last Admin: 07/14/18 09:44 Dose: 100 mls/hr Documented by: Sodium Chloride (Nacl 0.9%) 100 mls @ 999 mls/hr IV AL PRN PRN Reason: Hypotension Lanthanum Carbonate (Fosrenol) 1,000 mg PO QDAY [facility] Last Admin: 07/14/18 09:45 Dose: 1,000 mg Documented by: Magnesium Hydroxide (Milk Of Magnesia) 30 ml PO Q4H PRN PRN Reason: Constipation Nifedipine (Procardia Xl) 60 mg PO ONCE [facility] Last Admin: 07/13/18 03:28 Dose: 60 mg Documented by: Ondansetron HCl (Zofran) 4 mg IV Q8H PRN PRN Reason: Nausea And Vomiting Oxycodone/Acetaminophen (Percocet 5/325) 1 tab PO Q12H PRN PRN Reason: Pain, Moderate (4-6) Sodium Chloride (Sodium Chloride Flush Syringe 10 Ml) 10 ml IV BID [facility] Last Admin: 07/14/18 09:45 Dose: 10 ml Documented by: Sodium Chloride (Sodium Chloride Flush Syringe 10 Ml) 10 ml IV PRN PRN PRN Reason: LINE FLUSH Last Admin: 07/14/18 05:55 Dose: 10 ml Documented by: Physical Examination Vital Signs Temp Pulse Resp BP Pulse Ox 97.5 F L 78 20 162/63 96 07/12/18 10:46 07/12/18 10:46 07/12/18 10:46 07/12/18 10:46 07/12/18 10:46 General appearance: no acute distress HEENT: Positive: PERRL Neck: Positive: trachea midline Cardiac: Positive: Reg Rate and Rhythm Lungs: Positive: Decreased Breath Sounds Neuro: Positive: Grossly Intact Extremities: Absent: edema Results 07/14/18 07:08 07/14/18 07:08 CBC 07/14/18 Range/Units 07:08 WBC 6.0 (4.5-11.0) K/mm3 RBC 4.66 (3.65-5.03) M/mm3 Hgb 9.7 L (11.8-15.2) gm/dl Hct 30.4 L (35.5-45.6) % Plt Count 225 (140-440) K/mm3 Comprehensive Metabolic Panel 07/14/18 Range/Units 07:08 Sodium 141 D (137-145) mmol/L Potassium 4.6 (3.6-5.0) mmol/L Chloride 95.8 L (98-107) mmol/L Carbon Dioxide 26 (22-30) mmol/L BUN 36 H (9-20) mg/dL Creatinine 7.4 H (0.8-1.5) mg/dL Glucose 108 H (75-100) mg/dL Calcium 9.8 (8.4-10.2) mg/dL Assessment and Plan Pneumonia ESRD on dialysis Hypertension
--- NOTE | 2018-07-14 11:55 | Discharge Summary ---
Providers - Providers Date of Admission: 07/12/18 17:06 Date of discharge: 07/15/18 Attending physician: ALIA GONZALEZ 07/12/18 17:06 Consult to Physician [CONS] Routine Comment: called office/ ab Consulting Provider: CARROLL GUERRERO Physician Instructions: Reason For Exam: ESRD 07/13/18 06:39 Occupational Therapy Evaluate and Treat [CONS] Routine Comment: Reason For Exam: RUE edema Physical Therapy Evaluation and Treat [CONS] Routine Comment: Reason For Exam: [facility] unit 07/13/18 15:01 Consult to Physician [CONS] Routine Comment: called ans. ser.v./ab Consulting Provider: KASIA ROSE Physician Instructions: Reason For Exam: dyspnea, likely Type 2 [place] Primary care physician: CLIENT SERVICES ADMINISTRATOR Hospitalization Condition: Stable Hospital course: Hospital coarse: Patient is a 73 yo [place]ian man who speaks and understand [place]ian with a history of ESRD on HD (M,W,F) last dialyzed on Friday, OA, CVA with RHP and HTN presented to [facility] ED with sob, cough, right leg swelling, as well as generalized weakness and malaise. * Lower extremity Doppler: IMPRESSION: No DVT in either leg * VQ scan : IMPRESSION: No scintigraphic evidence of pulmonary thromboembolic disease * Chest x-ray: IMPRESSION: Right basilar atelectasis versus infiltrate and trace right pleural fluid. Diagnoses: Acute Hypoxic respiratory failure secondary to volume overload- saturation 78% on room air per nursings staff, now weaned off Anxiety disorder, likely secondary to respiratory failure End-stage renal disease on Hemodialysis Right basilar infiltrate Suspected Aspiration pneumonia on Levaquin 500mg IV [id number], he has received 2 doses (July 12 and ) Sepsis ruled out per Dr. Paul Hypertension with urgency Type 2 [place] by history Osteoarthritis Anemia of chronic renal disease Disposition: DC-01 TO HOME OR SELFCARE Time spent for discharge: 34 minutes Core Measure Documentation - Palliative Care Palliative Care/ Comfort Measures: Not Applicable - Core Measures Any of the following diagnoses?: none - VTE Discharge Requirements Deep Vein Thrombosis/Pulmonary Embolism Present on Admission: No Has pt received <5 days of overlap therapy or INR<2.0: No Anticoagulant overlap therapy prescribed at discharge: No Contraindication No Overlap Therapy order at DC: Not Indicated Exam - Physical Exam Narrative exam: Gen: thin frail, NAD, Awake, Alert, Orientated HEENT: NCAT, EOMI, PERRL, OP Clear Neck: supple, no adenopathy, no thyromegaly, no JVD CVS/Heart: RRR, normal S1S2, pulses present bilaterally Chest/Lungs: Symmetrical chest expansion, good air entry bilaterally GI/Abdomen: soft, NTND, good bowel sounds, no guarding or rebound /Bladder: no suprapubic tenderness, no CVA or paraspinal tenderness Extermity/Skin: no c/c/e, no obvious rash MSK: FROM x 4, right side weaker than left Neuro: CN 2-12 grossly intact, no new focal deficits Psych: calm - Constitutional Vitals: Temp Pulse Resp BP Pulse Ox 98.5 F 73 20 159/72 95 07/14/18 07:42 07/14/18 07:42 07/14/18 07:42 07/14/18 07:42 07/14/18 07:47 Plan Activity: other (no strenous activity) Diet: renal Follow up with: KENNETH LPOEZ MD [Primary Care Provider] - 3-5 Days KASIA ROSE MD [Staff Physician] - 7 Days CARROLL GUERRERO MD [Staff Physician] - 7 Days Prescriptions: RX: hydrALAZINE [Apresoline TAB] 100 mg PO Q8HR #30 tab RX: guaiFENesin DM [Guaifenesin Dm Syrup] 20 ml PO Q4H PRN 5 Days oral.liqd PRN Reason: Cough RX: amLODIPine [Norvasc] 10 mg PO QDAY #30 tablet RX: ALBUTEROL Inhaler(NF) [VENTOLIN Inhaler(NF)] 2 puff IH Q4HR PRN #1 inha PRN Reason: Shortness Of Breath
--- NOTE | 2018-07-14 12:31 | Progress Note ---
Assessment and Plan Assessment and plan: Patient is a 73 yo [place] man who speaks and understand Portuguese with a history of ESRD on HD (M,W,F) last dialyzed on Friday, OA, CVA with RHP and HTN presented to [facility] ED with sob, cough, right leg swelling, as well as generalized weakness and malaise. * Lower extremity Doppler: IMPRESSION: No DVT in either leg * VQ scan : IMPRESSION: No scintigraphic evidence of pulmonary thromboembolic disease * Chest x-ray: IMPRESSION: Right basilar atelectasis versus infiltrate and trace right pleural fluid. Acute Hypoxic respiratory failure secondary to volume overload- saturation 78% on room air per nursings staff, now weaned off, pulse ox 94% RA Anxiety disorder, likely secondary to respiratory failure End-stage renal disease on Hemodialysis: Renal is following, dialysis tomorrow Right basilar infiltrate Suspected Aspiration pneumonia on Levaquin 500mg IV [id number], he has received 2 doses (July 12 and ) Sepsis ruled out per Dr. Paul Hypertension with urgency: iv hydralazine prn Elevated troponin, ?CHF: await Cardiology evaluation Osteoarthritis: continue tylenol prn Anemia of chronic renal disease: continue to monitor DVT ppx on sq heparin full code Disposition: continue inpatient care, d/c once cleared by Cardiology, ECHO ordered History Interval history: Patient seen and examined. He wants to go home. He says he is at baseline Hospitalist Physical - Physical exam Narrative exam: Gen: thin frail, NAD, Awake, Alert, Orientated HEENT: NCAT, EOMI, PERRL, OP Clear Neck: supple, no adenopathy, no thyromegaly, no JVD CVS/Heart: RRR, normal S1S2, pulses present bilaterally Chest/Lungs: bibasilar crackles r>L, Symmetrical chest expansion, good air entry bilaterally GI/Abdomen: soft, NTND, good bowel sounds, no guarding or rebound /Bladder: no suprapubic tenderness, no CVA or paraspinal tenderness Extermity/Skin: no obvious rash MSK: FROM x 4, right side weaker than left Neuro: CN 2-12 grossly intact, no new focal deficits Psych: calm - Constitutional Vitals: Temp Pulse Resp BP Pulse Ox 98.5 F 73 20 159/72 95 07/14/18 07:42 07/14/18 07:42 07/14/18 07:42 07/14/18 07:42 07/14/18 07:47 General appearance: Present: no acute distress Results - Labs CBC & Chem 7: 07/14/18 07:08 07/14/18 07:08 Labs: Laboratory Last Values WBC 6.0 K/mm3 (4.5-11.0) 07/14/18 07:08 RBC 4.66 M/mm3 (3.65-5.03) 07/14/18 07:08 Hgb 9.7 gm/dl (11.8-15.2) L 07/14/18 07:08 Hct 30.4 % (35.5-45.6) L 07/14/18 07:08 MCV 65 fl (84-94) L 07/14/18 07:08 MCH 21 pg (28-32) L 07/14/18 07:08 MCHC 32 % (32-34) 07/14/18 07:08 RDW 20.6 % (13.2-15.2) H 07/14/18 07:08 Plt Count 225 K/mm3 (140-440) 07/14/18 07:08 Lymph % (Auto) Director Of Research And Development 07/12/18 11:46 Frio % (Auto) Director Of Research And Development 07/12/18 11:46 Eos % (Auto) Director Of Research And Development 07/12/18 11:46 Baso % (Auto) Director Of Research And Development 07/13/18 06:57 Lymph # Director Of Research And Development 07/12/18 11:46 Frio # Director Of Research And Development 07/12/18 11:46 Eos # Director Of Research And Development 07/12/18 11:46 Baso # Director Of Research And Development 07/12/18 11:46 Add Manual Diff Complete 07/13/18 06:57 Total Counted 100 07/13/18 06:57 Seg Neutrophils % Director Of Research And Development 07/12/18 11:46 Seg Neuts % (Manual) 60.0 % (40.0-70.0) 07/13/18 06:57 Band Neutrophils % 0 % 07/13/18 06:57 Lymphocytes % (Manual) 25.0 % (13.4-35.0) 07/13/18 06:57 Reactive Lymphs % (Man) 0 % 07/13/18 06:57 Monocytes % (Manual) 9.0 % (0.0-7.3) H 07/13/18 06:57 Eosinophils % (Manual) 4.0 % (0.0-4.3) 07/13/18 06:57 Basophils % (Manual) 2.0 % (0.0-1.8) H 07/13/18 06:57 Metamyelocytes % 0 % 07/13/18 06:57 Myelocytes % 0 % 07/13/18 06:57 Promyelocytes % 0 % 07/13/18 06:57 Blast Cells % 0 % 07/13/18 06:57 Nucleated RBC % Not Reportable 07/13/18 06:57 Seg Neutrophils # Director Of Research And Development 07/12/18 11:46 Seg Neutrophils # Man 7.1 K/mm3 (1.8-7.7) 07/13/18 06:57 Band Neutrophils # 0.0 K/mm3 07/13/18 06:57 Lymphocytes # (Manual) 3.0 K/mm3 (1.2-5.4) 07/13/18 06:57 Abs React Lymphs (Man) 0.0 K/mm3 07/13/18 06:57 Monocytes # (Manual) 1.1 K/mm3 (0.0-0.8) H 07/13/18 06:57 Eosinophils # (Manual) 0.5 K/mm3 (0.0-0.4) H 07/13/18 06:57 Basophils # (Manual) 0.2 K/mm3 (0.0-0.1) H 07/13/18 06:57 Metamyelocytes # 0.0 K/mm3 07/13/18 06:57 Myelocytes # 0.0 K/mm3 07/13/18 06:57 Promyelocytes # 0.0 K/mm3 07/13/18 06:57 Blast Cells # 0.0 K/mm3 07/13/18 06:57 WBC Morphology Not Reportable 07/13/18 06:57 Hypersegmented Neuts Not Reportable 07/13/18 06:57 Hyposegmented Neuts Not Reportable 07/13/18 06:57 Hypogranular Neuts Not Reportable 07/13/18 06:57 Smudge Cells Not Reportable 07/13/18 06:57 Toxic Granulation Not Reportable 07/13/18 06:57 Toxic Vacuolation Not Reportable 07/13/18 06:57 Dohle Bodies Not Reportable 07/13/18 06:57 Pelger-Huet Anomaly Not Reportable 07/13/18 06:57 Amarjit Rods Not Reportable 07/13/18 06:57 Platelet Estimate Consistent w auto 07/13/18 06:57 Clumped Platelets Not Reportable 07/13/18 06:57 Plt Clumps, EDTA Not Reportable 07/13/18 06:57 Large Platelets Rare 07/13/18 06:57 Giant Platelets Not Reportable 07/13/18 06:57 Platelet Satelliting Not Reportable 07/13/18 06:57 Plt Morphology Comment Not Reportable 07/13/18 06:57 RBC Morphology Not Reportable 07/13/18 06:57 Dimorphic RBCs Not Reportable 07/13/18 06:57 Polychromasia Not Reportable 07/13/18 06:57 Hypochromasia 2+ 07/13/18 06:57 Poikilocytosis Not Reportable 07/13/18 06:57 Anisocytosis 1+ 07/13/18 06:57 Microcytosis 1+ 07/13/18 06:57 Macrocytosis Not Reportable 07/13/18 06:57 Spherocytes Not Reportable 07/13/18 06:57 Pappenheimer Bodies Not Reportable 07/13/18 06:57 Sickle Cells Not Reportable 07/13/18 06:57 Target Cells Not Reportable 07/13/18 06:57 Tear Drop Cells Not Reportable 07/13/18 06:57 Ovalocytes Not Reportable 07/13/18 06:57 Helmet Cells Not Reportable 07/13/18 06:57 Varela-Whalan Bodies Not Reportable 07/13/18 06:57 [place] Rings Not Reportable 07/13/18 06:57 Abby Cells Not Reportable 07/13/18 06:57 Bite Cells Not Reportable 07/13/18 06:57 Crenated Cell Not Reportable 07/13/18 06:57 Elliptocytes Not Reportable 07/13/18 06:57 Acanthocytes (Spur) Not Reportable 07/13/18 06:57 Rouleaux Not Reportable 07/13/18 06:57 Hemoglobin C Crystals Not Reportable 07/13/18 06:57 Schistocytes Not Reportable 07/13/18 06:57 Malaria parasites Not Reportable 07/13/18 06:57 Genaro Bodies Not Reportable 07/13/18 06:57 Hem Pathologist Commnt No 07/13/18 06:57 PT 12.8 Sec. (12.2-14.9) 07/12/18 11:46 INR 0.91 (0.87-1.13) 07/12/18 11:46 APTT 39.6 Sec. (24.2-36.6) H 07/12/18 11:46 Sodium 141 mmol/L (137-145) D 07/14/18 07:08 Potassium 4.6 mmol/L (3.6-5.0) 07/14/18 07:08 Chloride 95.8 mmol/L (98-107) L 07/14/18 07:08 Carbon Dioxide 26 mmol/L (22-30) 07/14/18 07:08 Anion Gap 24 mmol/L 07/14/18 07:08 BUN 36 mg/dL (9-20) H 07/14/18 07:08 Creatinine 7.4 mg/dL (0.8-1.5) H 07/14/18 07:08 Estimated GFR 7 ml/min 07/14/18 07:08 BUN/Creatinine Ratio 5 % 07/14/18 07:08 Glucose 108 mg/dL (75-100) H 07/14/18 07:08 Calcium 9.8 mg/dL (8.4-10.2) 07/14/18 07:08 Total Bilirubin 0.50 mg/dL (0.1-1.2) 07/12/18 11:46 AST 20 units/L (5-40) 07/12/18 11:46 ALT 10 units/L (7-56) 07/12/18 11:46 Alkaline Phosphatase 98 units/L (35-129) 07/12/18 11:46 Total Creatine Kinase 94 units/L (55-170) 07/12/18 11:46 CK-MB (CK-2) 2.8 ng/mL (0.0-4.0) 07/12/18 11:46 CK-MB (CK-2) Rel Index 2.9 (0-4) 07/12/18 11:46 Troponin T 0.115 ng/mL (0.00-0.029) H* 07/12/18 17:28 NT-Pro-B Natriuret Pep > 90864 pg/mL (0-900) H 07/12/18 11:46 Total Protein 7.7 g/dL (6.3-8.2) 07/12/18 11:46 Albumin 4.7 g/dL (3.9-5) 07/12/18 11:46 Albumin/Globulin Ratio 1.6 % 07/12/18 11:46 Triglycerides 65 mg/dL (2-149) 07/12/18 11:46 Cholesterol 186 mg/dL (50-199) 07/12/18 11:46 LDL Cholesterol Direct 86 mg/dL (50-130) 07/12/18 11:46 HDL Cholesterol 98 mg/dL (40-59) H 07/12/18 11:46 Cholesterol/HDL Ratio 1.89 % 07/12/18 11:46 Active Medications - Current Medications Current Medications: Generic Name Dose Route Start Last Admin Trade Name Freq PRN Reason Stop Dose Admin Acetaminophen 650 mg 07/12/18 17:06 Tylenol PO Q4H PRN Pain MILD(1-3)/Fever >100.5/EVANS Albuterol 2.5 mg 07/12/18 17:06 07/13/18 06:35 Proventil IH 2.5 mg Q4HRT PRN Administration Shortness Of Breath Amlodipine Besylate 10 mg 07/13/18 16:00 07/14/18 09:45 Norvasc PO 10 mg QDAY KHAI Administration Calamine 1 applic 07/12/18 22:00 07/14/18 09:46 Calamine TP 1 applic BID KHAI Administration Furosemide 40 mg 07/13/18 18:00 07/14/18 05:54 Lasix IV 40 mg 0600,1800 KHAI Administration Guaifenesin 20 ml 07/12/18 17:07 07/14/18 05:58 Guaifenesin Dm Syrup PO 20 ml Q4H PRN Administration Cough Heparin Sodium (Porcine) 5,000 unit 07/12/18 22:00 07/14/18 09:45 Heparin SUB-Q 5,000 unit Q12HR KHAI Administration Hydralazine HCl 100 mg 07/12/18 22:00 07/14/18 05:54 Apresoline PO 100 mg Q8HR KHAI Administration Levofloxacin/Dextrose 500 mg in 100 mls @ 100 mls/hr 07/14/18 10:00 07/14/18 09:44 Levaquin 500mg/100ml IV 100 mls/hr Q48HR KHAI Administration Sodium Chloride 100 mls @ 999 mls/hr 07/13/18 08:22 Nacl 0.9% IV AL PRN Hypotension Lanthanum Carbonate 1,000 mg 07/13/18 10:00 07/14/18 09:45 Fosrenol PO 1,000 mg QDAY KHAI Administration Magnesium Hydroxide 30 ml 07/12/18 17:07 Milk Of Magnesia PO Q4H PRN Constipation Nifedipine 60 mg 07/12/18 18:00 07/13/18 03:28 Procardia Xl PO 60 mg ONCE KHAI Administration Ondansetron HCl 4 mg 07/12/18 17:06 Zofran IV Q8H PRN Nausea And Vomiting Oxycodone/Acetaminophen 1 tab 07/12/18 17:07 Percocet 5/325 PO Q12H PRN Pain, Moderate (4-6) Sodium Chloride 10 ml 07/12/18 22:00 07/14/18 09:45 Sodium Chloride Flush Syringe 10 Ml IV 10 ml BID KHAI Administration Sodium Chloride 10 ml 07/12/18 17:06 07/14/18 05:55 Sodium Chloride Flush Syringe 10 Ml IV 10 ml PRN PRN Administration LINE FLUSH
[2018-07-14] MEDS ORDERED: APRESOLINE IV ONE (17:22)
[2018-07-15] MEDS: LASIX IV SCH (06:34)
[2018-07-15] MEDS: APRESOLINE PO SCH ×2 (06:34→14:05)
--- NOTE | 2018-07-15 08:39 | Progress Note ---
Assessment and Plan Pneumonia ESRD on dialysis Hypertension Recommendations: Continue optimal hemodialysis for fluid management. Optimal medical therapy for hypertension. Echocardiogram for left ventricular function assessment. Subjective Date of service: 07/15/18 Principal diagnosis: ESRD Interval history: No cardiac complaints. Objective Vital Signs Temp Pulse Resp Resp BP BP Pulse Ox 07/15/18 07:24 97.7 F 70 18 173/76 95 07/15/18 03:00 97.3 F L 71 20 160/72 94 07/15/18 02:00 69 07/14/18 23:37 20 07/14/18 22:51 124/56 07/14/18 22:37 20 07/14/18 22:35 20 07/14/18 22:00 97 07/14/18 19:40 75 97 07/14/18 19:39 97.6 F 20 201/84 07/14/18 13:42 98.6 F 89 184/77 20 L - Physical Examination General: No Apparent Distress HEENT: Positive: PERRL Neck: Positive: trachea midline Cardiac: Positive: Reg Rate and Rhythm Lungs: Positive: Decreased Breath Sounds Neuro: Positive: Grossly Intact Extremities: Absent: edema
[2018-07-15] MEDS: HEPARIN SUB-Q SCH (10:00)
[2018-07-15] MEDS: FOSRENOL PO SCH (10:00)
[2018-07-15] MEDS: NORVASC PO SCH (10:00)
[2018-07-15] MEDS: SODIUM CHLORIDE FLUSH SYRINGE 10 ML IV SCH (10:00)
--- NOTE | 2018-07-15 10:13 | Progress Note ---
Assessment and Plan - Patient Problems (1) Pneumonia Current Visit: Yes Status: Acute Qualifiers: Laterality: right Lung location: lower lobe of lung Plan to address problem: cont ABXs treatment with levaquin, dose med for HD (2) End stage renal disease Current Visit: Yes Status: Acute Plan to address problem: cont HD on MWF schedule. target UF 2-3L as tolerated. stable for discharge from renal stand point after HD today. (3) Anemia in chronic illness Current Visit: No Status: Acute Plan to address problem: Hb at target, no need for further EPO at present (4) Hypertensive chronic kidney disease with stage 5 chronic kidney disease or end stage renal disease Current Visit: No Status: Acute Plan to address problem: resume home BP meds. will increase UF as tolerated for further BP/volume control Subjective Date of service: 07/15/18 Principal diagnosis: ESRD Interval history: Pt awake, alert, in NAD Objective - Vital Signs Vital signs: Vital Signs - 12hr 07/14/18 07/14/18 07/14/18 22:35 22:37 22:51 Temperature Pulse Rate Respiratory 20 Rate Respiratory 20 Rate [Left Hip] Blood Pressure 124/56 Blood Pressure [Right] O2 Sat by Pulse Oximetry 07/14/18 07/15/18 07/15/18 23:37 02:00 03:00 Temperature 97.3 F L Pulse Rate 69 71 Respiratory 20 20 Rate Respiratory Rate [Left Hip] Blood Pressure Blood Pressure 160/72 [Right] O2 Sat by Pulse 94 Oximetry 07/15/18 07/15/18 07/15/18 07:24 08:33 08:40 Temperature 97.7 F 97.7 F Pulse Rate 70 75 72 Respiratory 18 18 Rate Respiratory Rate [Left Hip] Blood Pressure 173/76 183/73 190/92 Blood Pressure [Right] O2 Sat by Pulse 95 Oximetry 07/15/18 07/15/18 07/15/18 08:45 09:00 09:15 Temperature Pulse Rate 71 67 69 Respiratory Rate Respiratory Rate [Left Hip] Blood Pressure 187/94 177/85 180/86 Blood Pressure [Right] O2 Sat by Pulse Oximetry 07/15/18 09:30 Temperature Pulse Rate 66 Respiratory Rate Respiratory Rate [Left Hip] Blood Pressure 171/90 Blood Pressure [Right] O2 Sat by Pulse Oximetry - General Appearance General appearance: well-developed, well-nourished, appears stated age EENT: ATNC, PERRL, mucous membranes moist Neck: no JVD Respiratory: Present: Clear to Ascultation Cardiology: regular, S1S2 Gastrointestinal: normoactive bowel sounds Integumentary: no rash, other (no edema ) Neurologic: no focal deficit, alert and oriented x3, strength 5/5, CN 3-12 intact Psychiatric: mood/affect appropriate, cooperative - Lab 07/14/18 07:08 07/14/18 07:08 Most recent lab results Calcium 9.8 mg/dL (8.4-10.2) 07/14/18 07:08 Medications & Allergies - Medications Allergies/Adverse Reactions: Allergies No Known Allergies Allergy (Verified 07/12/18 10:46) Home Medications: Home Medications Medication Instructions Recorded Confirmed Last Taken Type Furosemide [Lasix] 80 mg PO BID 02/16/17 07/12/18 07/12/18 History Lanthanum Carbonate [Fosrenol] 1,000 mg PO QDAY tab.chew 02/19/17 07/12/18 07/12/18 Rx Calamine/Zinc Oxide [Calamine 180 ml TP BID 30 Days lotion 02/21/17 07/12/18 07/12/18 Rx Lotion] NIFEdipine [Nifedipine ER] 1 tab PO QDAY 07/12/18 07/12/18 07/12/18 History Vit B Comp No.3/Folic/C/Biotin 1 tab PO QDAY 07/12/18 07/12/18 07/12/18 History [[facility] Rx Tablet] ALBUTEROL Inhaler(NF) [VENTOLIN 2 puff IH Q4HR PRN #1 inha 07/14/18 Unknown Rx Inhaler(NF)] Acetaminophen [Acetaminophen TAB] 325 mg PO Q4H PRN #15 tablet 07/14/18 Unknown Rx amLODIPine [Norvasc] 10 mg PO QDAY #30 tablet 07/14/18 Unknown Rx guaiFENesin DM [Guaifenesin Dm 20 ml PO Q4H PRN 5 Days oral.liqd 07/14/18 Unknown Rx Syrup] hydrALAZINE [Apresoline TAB] 100 mg PO Q8HR #30 tab 07/14/18 Unknown Rx Active Medications: Generic Name Dose Route Start Last Admin Trade Name Freq PRN Reason Stop Dose Admin Acetaminophen 650 mg 07/12/18 17:06 Tylenol PO Q4H PRN Pain MILD(1-3)/Fever >100.5/EVANS Albuterol 2.5 mg 07/12/18 17:06 07/13/18 06:35 Proventil IH 2.5 mg Q4HRT PRN Administration Shortness Of Breath Amlodipine Besylate 10 mg 07/13/18 16:00 07/14/18 09:45 Norvasc PO 10 mg QDAY KHAI Administration Calamine 1 applic 07/12/18 22:00 07/14/18 22:40 Calamine TP 1 applic BID KHAI Administration Furosemide 40 mg 07/13/18 18:00 07/15/18 06:34 Lasix IV 40 mg 0600,1800 KHAI Administration Guaifenesin 20 ml 07/12/18 17:07 07/14/18 22:36 Guaifenesin Dm Syrup PO 20 ml Q4H PRN Administration Cough Heparin Sodium (Porcine) 5,000 unit 07/12/18 22:00 07/14/18 22:36 Heparin SUB-Q 5,000 unit Q12HR KHAI Administration Hydralazine HCl 100 mg 07/12/18 22:00 07/15/18 06:34 Apresoline PO 100 mg Q8HR KHAI Administration Levofloxacin/Dextrose 500 mg in 100 mls @ 100 mls/hr 07/14/18 10:00 07/14/18 09:44 Levaquin 500mg/100ml IV 100 mls/hr Q48HR KHAI Administration Sodium Chloride 100 mls @ 999 mls/hr 07/13/18 08:22 Nacl 0.9% IV AL PRN Hypotension Lanthanum Carbonate 1,000 mg 07/13/18 10:00 07/14/18 09:45 Fosrenol PO 1,000 mg QDAY KHAI Administration Magnesium Hydroxide 30 ml 07/12/18 17:07 Milk Of Magnesia PO Q4H PRN Constipation Nifedipine 60 mg 07/12/18 18:00 07/13/18 03:28 Procardia Xl PO 60 mg ONCE KHAI Administration Ondansetron HCl 4 mg 07/12/18 17:06 Zofran IV Q8H PRN Nausea And Vomiting Oxycodone/Acetaminophen 1 tab 07/12/18 17:07 07/14/18 22:37 Percocet 5/325 PO 1 tab Q12H PRN Administration Pain, Moderate (4-6) Sodium Chloride 10 ml 07/12/18 22:00 07/14/18 22:41 Sodium Chloride Flush Syringe 10 Ml IV 10 ml BID KHAI Administration Sodium Chloride 10 ml 07/12/18 17:06 07/14/18 05:55 Sodium Chloride Flush Syringe 10 Ml IV 10 ml PRN PRN Administration LINE FLUSH
[2018-07-15] MEDS ORDERED: NACL 0.9% 100 ML IV PRN (10:49)
[2018-07-15] MEDS ORDERED: HEPARIN IV PRN (10:49)
--- NOTE | 2018-07-15 13:40 | Progress Note ---
Assessment and Plan Assessment and plan: Patient is a 73 yo Laotian man who speaks and understand Maltese with a history of ESRD on HD (M,W,F) last dialyzed on Friday, OA, CVA with RHP and HTN presented to [facility] ED with sob, cough, right leg swelling, as well as generalized weakness and malaise. * Lower extremity Doppler: IMPRESSION: No DVT in either leg * VQ scan : IMPRESSION: No scintigraphic evidence of pulmonary thromboembolic disease * Chest x-ray: IMPRESSION: Right basilar atelectasis versus infiltrate and trace right pleural fluid. Acute Hypoxic respiratory failure secondary to volume overload- saturation 78% on room air per nursings staff, now weaned off, pulse ox 94% RA Anxiety disorder, likely secondary to respiratory failure End-stage renal disease on Hemodialysis: Renal is following, dialysis done Right basilar infiltrate Suspected Aspiration pneumonia on Levaquin 500mg IV [id number], he has received 2 doses (July 12 and ) Sepsis ruled out per Dr. Paul Hypertension with urgency: iv hydralazine prn Elevated troponin, ?CHF: await Cardiology evaluation Osteoarthritis: continue tylenol prn Anemia of chronic renal disease: continue to monitor DVT ppx on sq heparin full code Disposition: continue inpatient care, d/c once cleared by Cardiology, ECHO ordered on Friday Still waiting on ECHO and Cardiology clearance to go home History Interval history: Patient seen and examined. He wants to go home. He says he is at baseline; at bedside. Hospitalist Physical - Physical exam Narrative exam: Gen: thin frail, NAD, Awake, Alert, Orientated HEENT: NCAT, EOMI, PERRL, OP Clear Neck: supple, no adenopathy, no thyromegaly, no JVD CVS/Heart: RRR, normal S1S2, pulses present bilaterally Chest/Lungs: bibasilar crackles r>L, Symmetrical chest expansion, good air entry bilaterally GI/Abdomen: soft, NTND, good bowel sounds, no guarding or rebound /Bladder: no suprapubic tenderness, no CVA or paraspinal tenderness Extermity/Skin: no obvious rash MSK: FROM x 4, right side weaker than left Neuro: CN 2-12 grossly intact, no new focal deficits Psych: calm - Constitutional Vitals: Temp Pulse Resp BP Pulse Ox 97.7 F 68 18 173/65 95 04/24/19 08:33 07/15/18 12:00 07/15/18 08:33 07/15/18 12:00 07/15/18 07:24 General appearance: Present: no acute distress Results - Labs CBC & Chem 7: 07/14/18 07:08 07/14/18 07:08 Labs: Laboratory Last Values WBC 6.0 K/mm3 (4.5-11.0) 07/14/18 07:08 RBC 4.66 M/mm3 (3.65-5.03) 07/14/18 07:08 Hgb 9.7 gm/dl (11.8-15.2) L 07/14/18 07:08 Hct 30.4 % (35.5-45.6) L 07/14/18 07:08 MCV 65 fl (84-94) L 07/14/18 07:08 MCH 21 pg (28-32) L 07/14/18 07:08 MCHC 32 % (32-34) 07/14/18 07:08 RDW 20.6 % (13.2-15.2) H 07/14/18 07:08 Plt Count 225 K/mm3 (140-440) 07/14/18 07:08 Lymph % (Auto) Telephone Sales Agent 07/12/18 11:46 Riley % (Auto) Telephone Sales Agent 07/12/18 11:46 Eos % (Auto) Telephone Sales Agent 07/12/18 11:46 Baso % (Auto) Telephone Sales Agent 07/13/18 06:57 Lymph # Telephone Sales Agent 07/12/18 11:46 Riley # Telephone Sales Agent 07/12/18 11:46 Eos # Telephone Sales Agent 07/12/18 11:46 Baso # Telephone Sales Agent 07/12/18 11:46 Add Manual Diff Complete 07/13/18 06:57 Total Counted 100 07/13/18 06:57 Seg Neutrophils % Telephone Sales Agent 07/12/18 11:46 Seg Neuts % (Manual) 60.0 % (40.0-70.0) 07/13/18 06:57 Band Neutrophils % 0 % 07/13/18 06:57 Lymphocytes % (Manual) 25.0 % (13.4-35.0) 07/13/18 06:57 Reactive Lymphs % (Man) 0 % 07/13/18 06:57 Monocytes % (Manual) 9.0 % (0.0-7.3) H 07/13/18 06:57 Eosinophils % (Manual) 4.0 % (0.0-4.3) 07/13/18 06:57 Basophils % (Manual) 2.0 % (0.0-1.8) H 07/13/18 06:57 Metamyelocytes % 0 % 07/13/18 06:57 Myelocytes % 0 % 07/13/18 06:57 Promyelocytes % 0 % 07/13/18 06:57 Blast Cells % 0 % 07/13/18 06:57 Nucleated RBC % Not Reportable 07/13/18 06:57 Seg Neutrophils # Telephone Sales Agent 07/12/18 11:46 Seg Neutrophils # Man 7.1 K/mm3 (1.8-7.7) 07/13/18 06:57 Band Neutrophils # 0.0 K/mm3 07/13/18 06:57 Lymphocytes # (Manual) 3.0 K/mm3 (1.2-5.4) 07/13/18 06:57 Abs React Lymphs (Man) 0.0 K/mm3 07/13/18 06:57 Monocytes # (Manual) 1.1 K/mm3 (0.0-0.8) H 07/13/18 06:57 Eosinophils # (Manual) 0.5 K/mm3 (0.0-0.4) H 07/13/18 06:57 Basophils # (Manual) 0.2 K/mm3 (0.0-0.1) H 07/13/18 06:57 Metamyelocytes # 0.0 K/mm3 07/13/18 06:57 Myelocytes # 0.0 K/mm3 07/13/18 06:57 Promyelocytes # 0.0 K/mm3 07/13/18 06:57 Blast Cells # 0.0 K/mm3 07/13/18 06:57 WBC Morphology Not Reportable 07/13/18 06:57 Hypersegmented Neuts Not Reportable 07/13/18 06:57 Hyposegmented Neuts Not Reportable 07/13/18 06:57 Hypogranular Neuts Not Reportable 07/13/18 06:57 Smudge Cells Not Reportable 07/13/18 06:57 Toxic Granulation Not Reportable 07/13/18 06:57 Toxic Vacuolation Not Reportable 07/13/18 06:57 Dohle Bodies Not Reportable 07/13/18 06:57 Pelger-Huet Anomaly Not Reportable 07/13/18 06:57 Amarjit Rods Not Reportable 07/13/18 06:57 Platelet Estimate Consistent w auto 07/13/18 06:57 Clumped Platelets Not Reportable 07/13/18 06:57 Plt Clumps, EDTA Not Reportable 07/13/18 06:57 Large Platelets Rare 07/13/18 06:57 Giant Platelets Not Reportable 07/13/18 06:57 Platelet Satelliting Not Reportable 07/13/18 06:57 Plt Morphology Comment Not Reportable 07/13/18 06:57 RBC Morphology Not Reportable 07/13/18 06:57 Dimorphic RBCs Not Reportable 07/13/18 06:57 Polychromasia Not Reportable 07/13/18 06:57 Hypochromasia 2+ 07/13/18 06:57 Poikilocytosis Not Reportable 07/13/18 06:57 Anisocytosis 1+ 07/13/18 06:57 Microcytosis 1+ 07/13/18 06:57 Macrocytosis Not Reportable 07/13/18 06:57 Spherocytes Not Reportable 07/13/18 06:57 Pappenheimer Bodies Not Reportable 07/13/18 06:57 Sickle Cells Not Reportable 07/13/18 06:57 Target Cells Not Reportable 07/13/18 06:57 Tear Drop Cells Not Reportable 07/13/18 06:57 Ovalocytes Not Reportable 07/13/18 06:57 Helmet Cells Not Reportable 07/13/18 06:57 [place] Bodies Not Reportable 07/13/18 06:57 [place] Rings Not Reportable 07/13/18 06:57 [place] Cells Not Reportable 07/13/18 06:57 Bite Cells Not Reportable 07/13/18 06:57 Crenated Cell Not Reportable 07/13/18 06:57 Elliptocytes Not Reportable 07/13/18 06:57 Acanthocytes (Spur) Not Reportable 07/13/18 06:57 Rouleaux Not Reportable 07/13/18 06:57 Hemoglobin C Crystals Not Reportable 07/13/18 06:57 Schistocytes Not Reportable 07/13/18 06:57 Malaria parasites Not Reportable 07/13/18 06:57 Genaro Bodies Not Reportable 07/13/18 06:57 Hem Pathologist Commnt No 07/13/18 06:57 PT 12.8 Sec. (12.2-14.9) 07/12/18 11:46 INR 0.91 (0.87-1.13) 07/12/18 11:46 APTT 39.6 Sec. (24.2-36.6) H 07/12/18 11:46 Sodium 141 mmol/L (137-145) D 07/14/18 07:08 Potassium 4.6 mmol/L (3.6-5.0) 07/14/18 07:08 Chloride 95.8 mmol/L (98-107) L 07/14/18 07:08 Carbon Dioxide 26 mmol/L (22-30) 07/14/18 07:08 Anion Gap 24 mmol/L 07/14/18 07:08 BUN 36 mg/dL (9-20) H 07/14/18 07:08 Creatinine 7.4 mg/dL (0.8-1.5) H 07/14/18 07:08 Estimated GFR 7 ml/min 07/14/18 07:08 BUN/Creatinine Ratio 5 % 07/14/18 07:08 Glucose 108 mg/dL (75-100) H 07/14/18 07:08 Calcium 9.8 mg/dL (8.4-10.2) 07/14/18 07:08 Total Bilirubin 0.50 mg/dL (0.1-1.2) 07/12/18 11:46 AST 20 units/L (5-40) 07/12/18 11:46 ALT 10 units/L (7-56) 07/12/18 11:46 Alkaline Phosphatase 98 units/L (35-129) 07/12/18 11:46 Total Creatine Kinase 94 units/L (55-170) 07/12/18 11:46 CK-MB (CK-2) 2.8 ng/mL (0.0-4.0) 07/12/18 11:46 CK-MB (CK-2) Rel Index 2.9 (0-4) 07/12/18 11:46 Troponin T 0.115 ng/mL (0.00-0.029) H* 07/12/18 17:28 NT-Pro-B Natriuret Pep > 36840 pg/mL (0-900) H 07/12/18 11:46 Total Protein 7.7 g/dL (6.3-8.2) 07/12/18 11:46 Albumin 4.7 g/dL (3.9-5) 07/12/18 11:46 Albumin/Globulin Ratio 1.6 % 07/12/18 11:46 Triglycerides 65 mg/dL (2-149) 07/12/18 11:46 Cholesterol 186 mg/dL (50-199) 07/12/18 11:46 LDL Cholesterol Direct 86 mg/dL (50-130) 07/12/18 11:46 HDL Cholesterol 98 mg/dL (40-59) H 07/12/18 11:46 Cholesterol/HDL Ratio 1.89 % 07/12/18 11:46 Active Medications - Current Medications Current Medications: Generic Name Dose Route Start Last Admin Trade Name Freq PRN Reason Stop Dose Admin Acetaminophen 650 mg 07/12/18 17:06 Tylenol PO Q4H PRN Pain MILD(1-3)/Fever >100.5/EVANS Albuterol 2.5 mg 07/12/18 17:06 07/13/18 06:35 Proventil IH 2.5 mg Q4HRT PRN Administration Shortness Of Breath Amlodipine Besylate 10 mg 07/13/18 16:00 07/15/18 10:00 Norvasc PO Not Given QDAY KHAI Calamine 1 applic 07/12/18 22:00 07/14/18 22:40 Calamine TP 1 applic BID KHAI Administration Furosemide 40 mg 07/13/18 18:00 07/15/18 06:34 Lasix IV 40 mg 0600,1800 KHAI Administration Guaifenesin 20 ml 07/12/18 17:07 07/14/18 22:36 Guaifenesin Dm Syrup PO 20 ml Q4H PRN Administration Cough Heparin Sodium (Porcine) 5,000 unit 07/12/18 22:00 07/15/18 10:00 Heparin SUB-Q Not Given Q12HR KHAI Heparin Sodium (Porcine) 5,000 unit 07/15/18 10:49 Heparin IV AL PRN hemodialysis Hydralazine HCl 100 mg 07/12/18 22:00 07/15/18 06:34 Apresoline PO 100 mg Q8HR KHAI Administration Levofloxacin/Dextrose 500 mg in 100 mls @ 100 mls/hr 07/14/18 10:00 07/14/18 09:44 Levaquin 500mg/100ml IV 100 mls/hr Q48HR KHAI Administration Sodium Chloride 100 mls @ 999 mls/hr 07/15/18 10:49 Nacl 0.9% IV AL PRN Hypotension Lanthanum Carbonate 1,000 mg 07/13/18 10:00 07/15/18 10:00 Fosrenol PO Not Given QDAY KHAI Magnesium Hydroxide 30 ml 07/12/18 17:07 Milk Of Magnesia PO Q4H PRN Constipation Nifedipine 60 mg 07/12/18 18:00 07/13/18 03:28 Procardia Xl PO 60 mg ONCE KHAI Administration Ondansetron HCl 4 mg 07/12/18 17:06 Zofran IV Q8H PRN Nausea And Vomiting Oxycodone/Acetaminophen 1 tab 07/12/18 17:07 07/14/18 22:37 Percocet 5/325 PO 1 tab Q12H PRN Administration Pain, Moderate (4-6) Sodium Chloride 10 ml 07/12/18 22:00 07/15/18 10:00 Sodium Chloride Flush Syringe 10 Ml IV Not Given BID KHAI Sodium Chloride 10 ml 07/12/18 17:06 07/14/18 05:55 Sodium Chloride Flush Syringe 10 Ml IV 10 ml PRN PRN Administration LINE FLUSH
[2018-07-15] MEDS: CALAMINE TP SCH (14:05)
[2018-07-15 14:37] VITALS: BP 143/64
== END 2018-07-15 16:00 | disposition home or self-care (01) | DRG 177 ==
LOC: ED 10:44 → 2B-ACE 17:06
PROVIDERS: ADMIT Internal Medicine; ATTEND Internal Medicine
PROC: 5A1D70Z Performance of Urinary Filtration, Intermittent, Less than 6 Hours Per Day (ICD-10-PCS; principal; 2018-07-13)
PROC: 5A1D70Z Performance of Urinary Filtration, Intermittent, Less than 6 Hours Per Day (ICD-10-PCS; 2018-07-15)
DX: J69.0 Pneumonitis due to inhalation of food and vomit (principal); N18.6 End stage renal disease; J96.01 Acute respiratory failure with hypoxia; I69.351 Hemiplegia and hemiparesis following cerebral infarction affecting right dominant side; I12.0 Hypertensive chronic kidney disease with stage 5 chronic kidney disease or end stage renal disease; I16.0 Hypertensive urgency; M19.90 Unspecified osteoarthritis, unspecified site; E87.70 Fluid overload, unspecified; D63.1 Anemia in chronic kidney disease; F41.9 Anxiety disorder, unspecified; Z99.2 Dependence on renal dialysis; I25.2 Old myocardial infarction; Z82.49 Family history of ischemic heart disease and other diseases of the circulatory system; Z79.899 Other long term (current) drug therapy
CPT/HCPCS: 36415; 71046; 78582; 80048; 80053; 80061; 82550; 82553; 83880; 84484; 85007; 85025; 85027; 85610; 85730; 87040; 93005; 93010; 93306; 94640; 94760; G0378; A9540; A9558; J0360; J1644; J1940; J1956

== ENCOUNTER 2018-08-11 09:10 | Day surgery (SDC) | payer MEDICARE ==
[~2018-08-11 09:10] MED LIST: ANCEF/STERILE WATER 2 GM/20 ML 2 GM/20 ML SYRINGE IV NR; NACL 0.9% 1000 ML 1,000 ML IV SCH
[2018-08-11] MEDS ORDERED: APRESOLINE PO ONE (10:00)
[2018-08-11 10:10] LABS: Basophils # (Auto) 0.1 K/mm3 (0.0-0.1); Basophils % (Auto) 1.7 % (0.0-1.8); Eosinophils # (Auto) 0.6 K/mm3 (0.0-0.4); Eosinophils % (Auto) 9.3 % (0.0-4.3); Hematocrit 33.8 % (35.5-45.6); Hemoglobin 11.2 gm/dl (11.8-15.2); Lymphocytes # (Auto) 1.2 K/mm3 (1.2-5.4); Mean Corpuscular HGB Conc 33 % (32-34); Mean Corpuscular Volume 65 fl (84-94); Monocytes # (Auto) 0.7 K/mm3 (0.0-0.8); Monocytes % (Auto) 12.2 % (0.0-7.3); Platelet Count 209 K/mm3 (140-440); Red Blood Count 5.18 M/mm3 (3.65-5.03)
[2018-08-11 10:11] LABS: Red Cell Distribution Width 21.7 % (13.2-15.2)
[2018-08-11] MEDS ORDERED: HEPARIN 10,000 UNITS/10 ML ONE ×2 (10:19→10:20)
[2018-08-11] MEDS ORDERED: NACL 0.9% 500 ML 500 ML ONE (10:19)
[2018-08-11] MEDS ORDERED: RIFADIN ONE (10:19)
[2018-08-11] MEDS ORDERED: MARCAINE-EPI 0.5%-1:200,000 INFILTRATI ONE ×4 (10:19→11:48)
[2018-08-11] MEDS ORDERED: DIPRIVAN 10 MG/ML IV ONE (10:23)
[2018-08-11] MEDS ORDERED: SUBLIMAZE ONE (10:23)
[2018-08-11 10:30] LABS: Calcium 8.8 mg/dL (8.4-10.2)
--- NOTE | 2018-08-11 10:33 | Anesthesia Consultation ---
Anesthesia Consult and Med Hx - Airway Anesthetic Teeth Evaluation: Poor (edentulous upper gum, poor chipped and missing teeth lower gum) Mallampati Class: Class II Intubation Access Assessment: Good - Pulmonary Exam CTA: Yes - Cardiac Exam Cardiac Exam: RRR - Pre-Operative Health Status ASA Pre-Surgery Classification: ASA3 Proposed Anesthetic Plan: General - Pulmonary Hx Pneumonia: Yes (Hospitalized 07/12/18) - Cardiovascular System Hx Hypertension: Yes Hx Heart Attack/AMI: Yes - Central Nervous System CVA: Yes - Endocrine Hx Renal Disease: Yes Hx End Stage Renal Disease: Yes - Other Systems Hx Cancer: No
[2018-08-11] MEDS ORDERED: DILAUDID IV PRN ×2 (10:34→12:47)
--- NOTE | 2018-08-11 10:34 | Anesthesia Day of Surgery ---
Anesthesia Day of Surgery - Day of Surgery Patient Examined: Yes Patient H&P Reviewed: Yes Patient is NPO: Yes
[2018-08-11] MEDS ORDERED: ZOFRAN IV PRN ×2 (11:00→12:47)
[2018-08-11] MEDS ORDERED: NACL 0.9% 100 ML ONE (11:11)
[2018-08-11] MEDS ORDERED: Vasostrict ONE (11:11)
[2018-08-11] MEDS ORDERED: DEXMEDETOMIDINE IV ONE (11:11)
[2018-08-11] MEDS ORDERED: KETALAR ONE (11:39)
[2018-08-11] MEDS ORDERED: VERSED ONE (11:39)
[2018-08-11] MEDS ORDERED: HEPARIN 10,000 UNITS/10 ML IV ONE (12:08)
[2018-08-11] MEDS ORDERED: NACL 0.9% 500 ML IRRIGATION ONE (12:08)
[2018-08-11] MEDS ORDERED: PROTAMINE SULFATE ONE (13:00)
--- NOTE | 2018-08-11 13:36 | Short Stay Summary ---
Short Stay Documentation Date of service: 08/11/18 - History H&P: obtained from office - Allergies and Medications Current Medications: Allergies No Known Allergies Allergy (Verified 08/10/18 08:24) Home Medications Medication Instructions Recorded Confirmed Last Taken Type RX: Furosemide [Lasix TAB] 80 mg PO BID 02/16/17 08/10/18 07/12/18 History RX: Lanthanum Carbonate [Fosrenol] 1,000 mg PO QDAY tab.chew 02/19/17 08/10/18 07/12/18 Rx Calamine/Zinc Oxide [Calamine 180 ml TP BID 30 Days lotion 02/21/17 08/10/18 07/12/18 Rx Lotion] RX: NIFEdipine [Nifedipine ER] 1 tab PO QDAY 07/12/18 08/10/18 07/12/18 History RX: Vit B Comp No.3/Folic/C/Biotin 1 tab PO QDAY 07/12/18 08/10/18 07/12/18 History [[place] Rx Tablet] RX: ALBUTEROL Inhaler(NF) 2 puff IH Q4HR PRN #1 inha 07/14/18 08/10/18 Unknown Rx [VENTOLIN Inhaler(NF)] RX: Acetaminophen [Acetaminophen 325 mg PO Q4H PRN #15 tablet 07/14/18 08/10/18 Unknown Rx TAB] RX: amLODIPine [Norvasc] 10 mg PO QDAY #30 tablet 07/14/18 08/10/18 Unknown Rx RX: guaiFENesin DM [Guaifenesin Dm 20 ml PO Q4H PRN 5 Days oral.liqd 07/14/18 08/10/18 Unknown Rx Syrup] RX: hydrALAZINE [Apresoline TAB] 100 mg PO Q8HR #30 tab 07/14/18 08/10/18 Unknown Rx Active Medications Hydromorphone HCl (Dilaudid) 0.25 mg IV Q10MIN PRN PRN Reason: Pain, Moderate (4-6) Stop: 08/11/18 20:00 Hydromorphone HCl (Dilaudid) 0.5 mg IV Q10MIN PRN PRN Reason: Pain , Severe (7-10) Sodium Chloride (Nacl 0.9% 1000 Ml) 1,000 mls @ 42 mls/hr IV DIRECT KHAI Cefazolin Sodium (Ancef/Sterile Water 2 Gm/20 Ml) 2 gm in 20 mls @ 80 mls/hr IV PREOP NR; Protocol Stop: 08/11/18 23:59 Ondansetron HCl (Zofran) 4 mg IV ONCE PRN PRN Reason: Nausea And Vomiting Ondansetron HCl (Zofran) 4 mg IV ONCE PRN PRN Reason: Nausea And Vomiting - Brief post op/procedure progress note Date of procedure: 08/11/18 Pre-op diagnosis: pseudoaneurysm of arteriovenous fistula Post-op diagnosis: other (pseudoaneurysm of the left radial artery) Procedure: Repair of pseudoaneurysm of left radial artery Anesthesia: regional, local Findings: Actual pseudoaneurysm was based on a needle puncture in the proximal radial artery. This was repaired primarily. Surgeon: ROBERT DICK Estimated blood loss: other (200 mL) Pathology: list (pseudoaneurysm wall) Specimen disposition: to lab Condition: stable - Hospital course Hospital course: Benign - Disposition Condition at discharge: Good Disposition: DC-01 TO HOME OR SELFCARE Short Stay Discharge Plan Activity: advance as tolerated Diet: advance as tolerated Wound: per your surgeon's advice Follow up with: ROBERT DICK MD [Staff Physician] - 14 Days Prescriptions: HYDROcodone/APAP 5-325 [[place] 5/325] 1 each PO Q6HR PRN #30 tablet PRN Reason: Pain
--- NOTE | 2018-08-11 13:43 | Operative Report ---
Operative Report Operative Report: Repair of Left Radial Artery Pseudoaneurysm Date of procedure: 08/11/2018 Pre-operative diagnosis: End-stage renal failure Post-operative diagnosis: Same Procedure name(s): Open repair of left radial artery pseudoaneurysm Surgeon: Sheldon De La Fuente MD Supervisor Agency Appointments: None Anesthesia: Local and upper extremity block as well as conscious sedation EBL: 200 mL Operative indication: Patient is a 73-year-old man who seems to have a pseudoaneurysm of the proximal portion of a left forearm cephalic vein fistula. Findings: The pseudoaneurysm was actually based on the proximal radial artery. It appears to have been a needle puncture one point. It was very well incorporated into the surrounding tissue. There was an excellent thrill at the arterial venous fistula at the end of the case. Procedure: The patient was placed on the table in supine position and given appropriate anesthesia. The area over the left arm is prepped with ChloraPrep solution and draped in the usual sterile fashion. Ultrasound examination was done of the vasculature of the left upper extremity. I could not identify a connection between the fistula and the pseudoaneurysm. The pseudoaneurysm was quite large. Examining the left radial artery revealed a site that I thought was associated with the pseudoaneurysm although it wasn't clear on the ultrasound. An area over the pseudoaneurysm was anesthetized with half percent Marcaine with epinephrine. A linear incision was made along the body of the fistula over the pseudoaneurysm in the proximal portion of the fistula. Dissection was carried out to identify the fistula. This was surrounded with Vesseloops proximally and distally. When controlling the flow into the fistula, there was no change in the pulsation in the pseudoaneurysm. It appeared this point that there was no connection between the fistula and the pseudoaneurysm and that it actually was based on the radial artery. Dissection was carried out deeper into the elbow to identify the proximal radial artery or brachial artery. This was surrounded with a vessel loop. Pulling up on this vessel loop. Pulsation within the pseudoaneurysm. I did not occlude the vessel at this time however. Dissection was carried out more distally. The incision was based so that he can continue to get his dialysis through the fistula after this procedure. Dissection was carried out to identify the distal portion of the radial artery. I could never get quite around it but I had plenty of area to put a clamp on it when necessary. The patient was given 2000 units of intravenous heparin. 3 minutes were allowed to pass. The proximal and distal radial artery above and below the pseudoaneurysm were controlled. The pseudoaneurysm was opened. The pseudoaneurysm was well developed with a very thick wall. It clearly been there for a long period of time. At the base of the pseudoaneurysm was a area that was bleeding that seemed to be associated with the radial artery. This appeared to be about the size of a 14-gauge needle. A 6-0 Prolene was used to control the bleeding initially. The pseudoaneurysm almost ureter from around the area but it was very difficult resected completely because was so well incorporated. I was able to identify the wall of the radial artery. 6-0 Prolene was then used to reapproximate the area over the puncture site. There was no more bleeding. Flow was started into the radial artery with development of immediate excellent thrill across the entire body of the fistula. There was no further bleeding from the side of the pseudoaneurysm formation. A portion of the wall was debrided and sent to pathology. Meticulous hemostasis was obtained in all areas. The wound was infiltrated with half percent Marcaine and epinephrine. Closure was done with 3-0 Vicryl and 4-0 subcuticular PDS. Dermabond was placed. The patient tolerated the procedure well. There was a good thrill in the fistula at the end of the procedure. Sponge, needle, and instrument counts were reported as correct.
[2018-08-11 16:13] VITALS: BP 154/71
== END 2018-08-11 15:20 | disposition home or self-care (01) ==
LOC: OR 09:10
PROVIDERS: ATTEND Surgery Vascular Surgery
DX: I13.2 Hypertensive heart and chronic kidney disease with heart failure and with stage 5 chronic kidney disease, or end stage renal disease (principal); N18.6 End stage renal disease; I50.9 Heart failure, unspecified; D63.8 Anemia in other chronic diseases classified elsewhere; M19.90 Unspecified osteoarthritis, unspecified site; T82.591A Other mechanical complication of surgically created arteriovenous shunt, initial encounter; Z99.2 Dependence on renal dialysis; Z79.899 Other long term (current) drug therapy; Z98.890 Other specified postprocedural states; Z86.73 Personal history of transient ischemic attack (TIA), and cerebral infarction without residual deficits; Y83.8 Other surgical procedures as the cause of abnormal reaction of the patient, or of later complication, without mention of misadventure at the time of the procedure; Y92.89 Other specified places as the place of occurrence of the external cause
CPT/HCPCS: 36415; 37607; 80048; 82803; 85025; 88304; J0690; J1644; J2250; J2704; J2720; J3010; J3490; J7030; J7040; 64450

== ENCOUNTER 2019-04-24 05:59 | Emergency (ER) | payer MEDICARE ==
[2019-04-24 06:23] VITALS: BP 143/66
[2019-04-24] MEDS ORDERED: DESMOPRESSIN ACETATE 19 MCG in SODIUM CHLORIDE 0.9% 50 ML IV ONE (06:55)
--- NOTE | 2019-04-24 07:01 | Emergency Department Report ---
HPI - General Chief Complaint: Wound/Laceration Time Seen by Provider: 04/24/19 06:28 - HPI HPI: Room 7 The patient is a 74-year-old male presenting with chief complaint of bleeding from right shoulder surgical site. Patient had surgery on his right shoulder 04/19/2019 at [facility]. The patient is unable to tell me his diagnosis or the surgeon's name. The patient states he has surgery because his shoulder was "swollen." The patient has a history of ESRD and went to dialysis today to receive his treatment was sent to the emergency department after was discovered he was bleeding from his surgical site. No dialysis was administered today. Patient denies any recent trauma. Patient states he was last dialyzed 2 days ago Location: [See above] Duration: [See above] Quality: [See above] Severity: [See above] Timing: [See above] Context: [See above] Modifying factors: [See above] Associated signs and symptoms: [see above] ED Past Medical Hx - Past Medical History Previous Medical History?: Yes Hx Hypertension: Yes Hx CVA: Yes (2-3 years ago states some right side weakness) Hx Heart Attack/AMI: Yes Hx Congestive Heart Failure: Yes Hx Renal Disease: Yes Hx Arthritis: Yes Additional medical history: Hemodialysis Access Left Arm, GI Bleed - Surgical History Past Surgical History?: Yes Additional Surgical History: Left upper extremity dialysis access - Family History Family history: no significant - Social History Smoking Status: Never Smoker Substance Use Type: None - Medications Home Medications: Home Medications Medication Instructions Recorded Confirmed Last Taken Type Furosemide [Lasix TAB] 80 mg PO BID 02/16/17 08/10/18 07/12/18 History Lanthanum Carbonate [Fosrenol] 1,000 mg PO QDAY tab.chew 02/19/17 08/10/18 07/12/18 Rx Calamine/Zinc Oxide [Calamine 180 ml TP BID 30 Days lotion 02/21/17 08/10/18 07/12/18 Rx Lotion] NIFEdipine [Nifedipine ER] 1 tab PO QDAY 07/12/18 08/10/18 07/12/18 History Vit B Comp No.3/Folic/C/Biotin 1 tab PO QDAY 07/12/18 08/10/18 07/12/18 History [[place] Rx Tablet] ALBUTEROL Inhaler(NF) [VENTOLIN 2 puff IH Q4HR PRN #1 inha 07/14/18 08/10/18 Unknown Rx Inhaler(NF)] Acetaminophen [Acetaminophen TAB] 325 mg PO Q4H PRN #15 tablet 07/14/18 08/10/18 Unknown Rx amLODIPine 10 mg PO QDAY #30 tablet 07/14/18 08/10/18 Unknown Rx guaiFENesin DM [Guaifenesin Dm 20 ml PO Q4H PRN 5 Days oral.liqd 07/14/18 08/10/18 Unknown Rx Syrup] hydrALAZINE [Apresoline TAB] 100 mg PO Q8HR #30 tab 07/14/18 08/10/18 Unknown Rx HYDROcodone/APAP 5-325 [[place] 1 each PO Q6HR PRN #30 tablet 08/11/18 Unknown Rx 5/325] ED Review of Systems ROS: Stated complaint: RT SOUND WOUND,PREVENTING DIALYSIS TREATMENT Other details as noted in HPI Hematological/Lymphatic: easy bleeding (from surgical site) Physical Exam - Physical Exam Vital Signs: Vital Signs 04/24/19 04/24/19 06:22 06:34 Temperature 97.9 F Pulse Rate 86 Respiratory 14 Rate Blood Pressure 143/66 [right lef] O2 Sat by Pulse 97 Oximetry Physical Exam: GENERAL: The patient is well-developed well-nourished []. [] HEENT: Normocephalic. Atraumatic. Extraocular motions are intact. Patient has moist mucous membranes. NECK: Supple. Trachea midline CHEST/LUNGS: There is no respiratory distress noted. HEART/CARDIOVASCULAR: Regular. There is no tachycardia. 2+ right radial pulse SKIN: Anterior right shoulder surgical site clean and intact. Sutures in place. Small amount of sanguinous oozing originating from a point between the proximal and middle third of the surgical site. Direct pressure to this area stops the oozing. There is no diaphoresis. NEURO: The patient is awake, alert, and oriented. The patient is cooperative. The patient has normal speech MUSCULOSKELETAL: There is no evidence of acute injury. ED Course Vital Signs 04/24/19 04/24/19 06:22 06:34 Temperature 97.9 F Pulse Rate 86 Respiratory 14 Rate Blood Pressure 143/66 [right lef] O2 Sat by Pulse 97 Oximetry - Reevaluation(s) Reevaluation #1: 04/24/19 08:15 Pressure dressing removed and surgical site hemostatic. Surgicel and dressing replaced over surgical site - Consultations Consultation #1: 04/24/19 08:16 Nephrology paged 04/24/19 08:[address] Padilla- states his surgical site is hemostatic the patient may be discharged back to hemodialysis today and he will call to arrange hemodialysis this morning Consultation #2: 04/24/19 09:17 Case discussed with patient's orthopedic surgeon Dr. Briceno ED Medical Decision Making - Lab Data Result diagrams: 04/24/19 06:55 04/24/19 06:55 Laboratory Tests 04/24/19 04/24/19 04/24/19 06:55 06:55 06:55 WBC 9.7 RBC 4.07 Hgb 8.4 L Hct 25.8 L MCV 64 L MCH 21 L MCHC 32 RDW 22.1 H Plt Count 346 Add Manual Diff Complete Total Counted 100 Seg Neuts % (Manual) 74.0 H Band Neutrophils % 1.0 Lymphocytes % (Manual) 9.0 L Reactive Lymphs % (Man) 0 Monocytes % (Manual) 9.0 H Eosinophils % (Manual) 7.0 H Basophils % (Manual) 0 Metamyelocytes % 0 Myelocytes % 0 Promyelocytes % 0 Blast Cells % 0 Nucleated RBC % Not Reportable Seg Neutrophils # Man 7.2 Band Neutrophils # 0.1 Lymphocytes # (Manual) 0.9 L Abs React Lymphs (Man) 0.0 Monocytes # (Manual) 0.9 H Eosinophils # (Manual) 0.7 H Basophils # (Manual) 0.0 Metamyelocytes # 0.0 Myelocytes # 0.0 Promyelocytes # 0.0 Blast Cells # 0.0 WBC Morphology Not Reportable Hypersegmented Neuts Not Reportable Hyposegmented Neuts Not Reportable Hypogranular Neuts Not Reportable Smudge Cells Not Reportable Toxic Granulation Not Reportable Toxic Vacuolation Not Reportable Dohle Bodies Not Reportable Pelger-Huet Anomaly Not Reportable Amarjit Rods Not Reportable Platelet Estimate Consistent w auto Clumped Platelets Not Reportable Plt Clumps, EDTA Not Reportable Large Platelets Not Reportable Giant Platelets Not Reportable Platelet Satelliting Not Reportable Plt Morphology Comment Not Reportable RBC Morphology Not Reportable Dimorphic RBCs Not Reportable Polychromasia Not Reportable Hypochromasia 2+ Poikilocytosis Not Reportable Anisocytosis 1+ Microcytosis 2+ Macrocytosis Not Reportable Spherocytes Not Reportable Pappenheimer Bodies Not Reportable Sickle Cells Not Reportable Target Cells Not Reportable Tear Drop Cells 1+ Ovalocytes Not Reportable Helmet Cells Not Reportable [place] Bodies Not Reportable [place] Rings Not Reportable Drifting Cells Not Reportable Bite Cells Not Reportable Crenated Cell Not Reportable Elliptocytes Few Acanthocytes (Spur) Not Reportable Rouleaux Not Reportable Hemoglobin C Crystals Not Reportable Schistocytes Not Reportable Malaria parasites Not Reportable [place] Bodies Not Reportable Hem Pathologist Commnt No PT 14.9 INR 1.15 H APTT 41.1 H Sodium 132 L Potassium 4.1 Chloride 90.6 L Carbon Dioxide 20 L Anion Gap 26 BUN 61 H Creatinine 10.8 H Estimated GFR 5 BUN/Creatinine Ratio 6 Glucose 123 H Calcium 9.7 Blood Type 04/24/19 07:04 WBC RBC Hgb Hct MCV MCH MCHC RDW Plt Count Add Manual Diff Total Counted Seg Neuts % (Manual) Band Neutrophils % Lymphocytes % (Manual) Reactive Lymphs % (Man) Monocytes % (Manual) Eosinophils % (Manual) Basophils % (Manual) Metamyelocytes % Myelocytes % Promyelocytes % Blast Cells % Nucleated RBC % Seg Neutrophils # Man Band Neutrophils # Lymphocytes # (Manual) Abs React Lymphs (Man) Monocytes # (Manual) Eosinophils # (Manual) Basophils # (Manual) Metamyelocytes # Myelocytes # Promyelocytes # Blast Cells # WBC Morphology Hypersegmented Neuts Hyposegmented Neuts Hypogranular Neuts Smudge Cells Toxic Granulation Toxic Vacuolation Dohle Bodies Pelger-Huet Anomaly Amarjit Rods Platelet Estimate Clumped Platelets Plt Clumps, EDTA Large Platelets Giant Platelets Platelet Satelliting Plt Morphology Comment RBC Morphology Dimorphic RBCs Polychromasia Hypochromasia Poikilocytosis Anisocytosis Microcytosis Macrocytosis Spherocytes Pappenheimer Bodies Sickle Cells Target Cells Tear Drop Cells Ovalocytes Helmet Cells [place] Bodies [place] Rings Drifting Cells Bite Cells Crenated Cell Elliptocytes Acanthocytes (Spur) Rouleaux Hemoglobin C Crystals Schistocytes Malaria parasites Genaro Bodies Hem Pathologist Commnt PT INR APTT Sodium Potassium Chloride Carbon Dioxide Anion Gap BUN Creatinine Estimated GFR BUN/Creatinine Ratio Glucose Calcium Blood Type O POSITIVE - Differential Diagnosis coagulopathy, hematoma Critical care attestation.: If time is entered above; I have spent that time in minutes in the direct care of this critically ill patient, excluding procedure time. ED Disposition Clinical Impression: Postoperative bleeding from incision, End stage renal disease Disposition: DC-01 TO HOME OR SELFCARE Is pt being admited?: No Does the pt Need Aspirin: No Condition: Stable Additional Instructions: Return to the emergency department should you develop worsening symptoms, inability to tolerate food or liquids, high fever or any other concerns Time of Disposition: 08:26 (DC to hemodialysis)
[2019-04-24 07:23] LABS: Hematocrit 25.8 % (35.5-45.6); Hemoglobin 8.4 gm/dl (11.8-15.2); Mean Corpuscular HGB Conc 32 % (32-34); Platelet Count 346 K/mm3 (140-440); Red Blood Count 4.07 M/mm3 (3.65-5.03)
[2019-04-24 07:26] LABS: INR 1.15 (0.87-1.13); Mean Corpuscular Volume 64 fl (84-94); Red Cell Distribution Width 22.1 % (13.2-15.2)
[2019-04-24 07:27] LABS: Partial Thromboplastin Time 41.1 Sec. (24.2-36.6)
[2019-04-24 07:35] LABS: Calcium 9.7 mg/dL (8.4-10.2)
[2019-04-24 07:58] LABS: Band Neutrophils # (Manual) 0.1 K/mm3; Basophils % (Manual) 0 % (0.0-1.8); Total Cells Counted 100
[2019-04-24 07:59] LABS: Anisocytosis 1+; Hypochromasia 2+; Tear Drop Cells 1+
[2019-04-24 08:00] LABS: Platelet Estimate Consistent w Auto
[2019-04-24] MEDS ORDERED: DESMOPRESSIN 4 MCG/ML VIAL SUB-Q ONE (08:21)
== END 2019-04-24 10:16 | disposition home or self-care (01) ==
LOC: ED 05:59
DX: I13.2 Hypertensive heart and chronic kidney disease with heart failure and with stage 5 chronic kidney disease, or end stage renal disease (principal); N18.6 End stage renal disease; I50.9 Heart failure, unspecified; M19.90 Unspecified osteoarthritis, unspecified site; I25.2 Old myocardial infarction; Z98.890 Other specified postprocedural states; Z99.2 Dependence on renal dialysis; Z79.899 Other long term (current) drug therapy
CPT/HCPCS: 36415; 80048; 85007; 85025; 85610; 85730; 86850; 86900; 86901; 96372; 99284; J2597